=== PATIENT | female | born 1970 | race Caucasian/White ===

== ENCOUNTER 2016-08-01 18:37 | Emergency (ER) | payer OTHER ==
[2016-08-01 19:04] VITALS: BP 139/81
== END 2016-08-01 20:12 | disposition left against medical advice (07) ==
LOC: ED 18:37
DX: M54.5 Low back pain (principal); Z53.21 Procedure and treatment not carried out due to patient leaving prior to being seen by health care provider

== ENCOUNTER 2016-08-01 20:42 | Emergency (ER) | payer OTHER ==
[2016-08-01 20:55] VITALS: BP 108/74
[2016-08-01] MEDS ORDERED: Ketorolac INJ* 30 MG/ML 1 ML VIAL IM ONE (21:24)
[2016-08-01] MEDS ORDERED: Cyclobenzaprine TAB* 10 MG PO ONE (21:24)
--- NOTE | 2016-08-01 21:35 | UC ---
Back Pain HPI - HPI Summary HPI Summary: L lower back pain starting 1-2 weeks ago. Denies any recent trauma or twisting injury. Feels like when she fell off of chair about a week ago. Sees Dr. Lora' s office for chronic shoulder pain. No trouble with bowel or bladder, no fever, no weight loss. - History of Current Complaint Chief Complaint: UCBackPain Stated Complaint: BACK INJURY Hx Obtained From: Patient Hx Last Menstrual Period: 07/18/16 ?: No Onset/Duration: Gradual Onset, Lasting Weeks Timing: Constant Severity Initially: Mild Severity Currently: Moderate Back Pain: Is Discrete @ Aggravating: Movement, Bending, Walking Associated Signs And Symptoms: Negative: Redness, Bruising, Fever, Bladder Incontinence, Bowel Incontinence, Weight Loss - Allergies/Home Medications Allergies/Adverse Reactions: Allergies Allergy/AdvReac Type Severity Reaction Status Date / Time Amoxicillin AdvReac Intermediate Rash Verified 01/17/16 11:26 Home Medications: Home Medications Acetaminophen TAB* [Tylenol TAB*] 2 tab 08/01/16 [History] QUEtiapine TAB* [Seroquel TAB*] 2 tab PO BEDTIME 08/01/16 [History Confirmed ] PMH/Surg Hx/FS Hx/Imm Hx Endocrine History Of: Denies: Diabetes, Thyroid Disease Cardiovascular History Of: Reports: Hypertension Denies: Cardiac Disorders, Pacemaker/ICD Respiratory History Of: Reports: Asthma - PRN INHALER Denies: COPD GI/ History Of: Denies: Gastroesophageal Reflux, Ulcer, Renal Disease Neurological History Of: Reports: Migraine - HISTORY OF Denies: CVA, Dementia, Seizures Psychological History Of: Reports: Anxiety, Depression Other History Of: Negative For: Anticoagulant Therapy - Surgical History Surgical History: Yes Surgery Procedure, Year, and Place: LT ANKLE ARTHROSCOPY 01/2013. Lt KNEE ARTHROSCOPIC 2008. TUBAL LIGATION 2000. I & D ABD AREA DUE TO INFECTION RELATED TO CAT-SCRATCH FEVER AGE 6. Rt WRIST - TENDONITIS - Family History Known Family History: Positive: Hypertension, Diabetes, Other - cancer - colon; parkinsons - Social History Lives: With Family Alcohol Use: None Substance Use Type: None Smoking Status (MU): Heavy Every Day Tobacco Smoker Amount Used/How Often: 1-10 CIG/DAY When Did the Patient Quit Smoking/Using Tobacco: 1/2 PACK PER DAY Household Exposure Type: Cigarettes Review of Systems Constitutional: Negative Skin: Negative Eyes: Negative ENT: Negative Respiratory: Negative Cardiovascular: Negative Gastrointestinal: Negative Genitourinary: Negative Motor: Negative Neurovascular: Negative Musculoskeletal: Arthralgia Neurological: Negative Psychological: Negative All Other Systems Reviewed And Are Negative: Yes Physical Exam Triage Information Reviewed: Yes Appearance: Well-Appearing, No Pain Distress, Obese Vital Signs: Initial Vital Signs Temp 97.4 F 08/01/16 20:49 Pulse 75 08/01/16 20:49 Resp 18 08/01/16 20:49 BP 108/74 08/01/16 20:49 Pulse Ox 95 08/01/16 20:49 Vital Signs Reviewed: Yes Eye Exam: Normal Eyes: Positive: Conjunctiva Clear ENT Exam: Normal ENT: Positive: Normal ENT inspection, Hearing grossly normal, Pharynx normal, TMs normal Dental Exam: Normal Neck exam: Normal Neck: Positive: Supple, Nontender, No Lymphadenopathy Respiratory Exam: Normal Respiratory: Positive: Chest non-tender, Lungs clear, Normal breath sounds, No respiratory distress, No accessory muscle use Cardiovascular Exam: Normal Cardiovascular: Positive: RRR, No Murmur Musculoskeletal Exam: Other - theatric pain with light touch Musculoskeletal: Positive: Strength Intact, ROM Intact Neurological Exam: Normal, Other - DTRs 2+ BLE Psychological Exam: Normal Skin Exam: Normal Back Pain Course/Dx - Differential Dx/Diagnosis Provider Diagnoses: Low back strain Discharge - Discharge Plan Condition: Stable Disposition: HOME Prescriptions: Cyclobenzaprine TAB* [Flexeril TAB*] 10 mg PO TID PRN #15 tab PRN Reason: Pain Ketorolac TAB (NF) [Toradol TAB (NF)] 10 mg PO Q8HR PRN #15 tab PRN Reason: pain Patient Education Materials: Low Back Strain (ED) Referrals: Teodoro Blair MD [Primary Care Provider] - 1 Week Additional Instructions: Stay active and rest on a firm surface when needed. I recommend using a pillow between the knees or under your legs when you sleep. Apply warm moist compresses and do gentle [id number] exercises.
== END 2016-08-01 21:43 | disposition home or self-care (01) ==
LOC: UCEAST 20:42
DX: S39.012A Strain of muscle, fascia and tendon of lower back, initial encounter (principal); X58.XXXA Exposure to other specified factors, initial encounter; Y93.9 Activity, unspecified; Y92.9 Unspecified place or not applicable; Z88.0 Allergy status to penicillin; F17.210 Nicotine dependence, cigarettes, uncomplicated
CPT/HCPCS: 96372; 99212; A9270-GY; G0463; J1885

== ENCOUNTER → 2017-03-01 16:21 | Emergency (ER) | payer OTHER ==
[~2017-03-01 16:21] MED LIST: Ibuprofen TAB* 600 MG PO ONE
--- NOTE | 2017-03-01 18:54 | RAD ---
HISTORY: Lump on left wrist, pain COMPARISONS: October 06, 2014 VIEWS: 2, Frontal and lateral views of the left wrist FINDINGS: BONE DENSITY: Normal. BONES: There is no displaced fracture. JOINTS: There is no arthropathy. ALIGNMENT: There is no dislocation. SOFT TISSUES: Unremarkable. OTHER FINDINGS: There is no radiographic abnormality to correspond to the history of palpable abnormality. IMPRESSION: NO ACUTE OSSEOUS INJURY. IF SYMPTOMS PERSIST, RECOMMEND REPEAT IMAGING. A NEGATIVE REPORT SHOULD NOT PRECLUDE OR DELAY THE EVALUATION OF A CLINICALLY SUSPICIOUS PALPABLE ABNORMALITY
[2017-03-01 19:30] VITALS: BP 126/79
--- NOTE | 2017-03-02 08:13 | ED ---
Upper Extremity Pain - HPI Summary HPI Summary: Patient presents to the ED with CC of left bump on the radial side of the wrist x 2 days. She states she may have "felt something" there for several weeks, but it quickly grew into a bump which is painful, able to be pressed down and pain is worse with movement of the wrist. She states she has been taking over the counter medications without relief. Denies numbness, tingling, temperature or color changes to the area. She denies trauma or injury. Has never had this problem before. - History of Current Complaint Chief Complaint: EDExtremityUpper Stated Complaint: BUMP ON LT WRIST Time Seen by Provider: 03/01/17 16:45 Hx Obtained From: Patient Hx Last Menstrual Period: 07/18/16 Onset/Duration: Started Days Ago Timing: Constant Severity Initially: Moderate Severity Currently: Moderate Pain Location: Wrist Character: Aching Aggravating Factor(s): Movement, Flexion Alleviating Factor(s): Rest, Ice, OTC Meds Associated Signs & Symptoms: Positive: Swelling - Risk Factors Non-Orthopedic Risk Factor: Negative DVT Risk Factors: Negative Compartment Syndrome Risk Factors: Pain - Allergies/Home Medications Allergies/Adverse Reactions: Allergies Allergy/AdvReac Type Severity Reaction Status Date / Time Amoxicillin AdvReac Intermediate Rash Verified 03/01/17 16:31 PMH/Surg Hx/FS Hx/Imm Hx Previously Healthy: Yes Endocrine/Hematology History: Denies: Hx Anticoagulant Therapy, Hx Diabetes, Hx Thyroid Disease Cardiovascular History: Reports: Hx Hypertension, Other Cardiovascular Problems/ Disorders - HIGH CHOLESTEROL Denies: Hx Pacemaker/ICD Respiratory History: Reports: Hx Asthma - PRN INHALER, Hx Sleep Apnea - IN PROCESS OF HAVING A STUDY DONE Denies: Hx Chronic Obstructive Pulmonary Disease (COPD) GI History: Denies: Hx Ulcer History: Denies: Hx Renal Disease Musculoskeletal History: Reports: Hx Arthritis - LEFT ANKLE, Hx Tendonitis - LEFT ANKLE Sensory History: Reports: Hx Contacts or Glasses - GLASSES Denies: Hx Hearing Aid Opthamlomology History: Reports: Hx Contacts or Glasses - GLASSES Neurological History: Reports: Hx Migraine - HISTORY OF, Other Neuro Impairments /Disorders - BIPOLAR Denies: Hx Dementia, Hx Seizures Psychiatric History: Reports: Hx Anxiety, Hx Depression, Hx Panic Disorder - ANXIETY/DEPRESSION/BI POLAR Denies: Hx Eating Disorder, Hx of Violent Episodes Against Others, Hx Substance Abuse - Surgical History Surgery Procedure, Year, and Place: LT ANKLE ARTHROSCOPY 01/2013. Lt KNEE ARTHROSCOPIC 2008. TUBAL LIGATION 2000. I & D ABD AREA DUE TO INFECTION RELATED TO CAT-SCRATCH FEVER AGE 6. Rt WRIST - TENDONITIS Hx Anesthesia Reactions: No - Immunization History Hx Pertussis Vaccination: No Immunizations Up to Date: Unable to Obtain/Confirm Infectious Disease History: No Infectious Disease History: Denies: Hx Clostridium Difficile, Hx Hepatitis, Hx Human Immunodeficiency Virus (HIV), Hx of Known/Suspected MRSA, Hx Shingles, Hx Tuberculosis, Traveled Outside the [place] in Last 30 Days - Family History Known Family History: Positive: Hypertension, Diabetes, Other - cancer - colon; parkinsons - Social History Occupation: Unemployed Lives: With Family Alcohol Use: None Hx Substance Use: No Substance Use Type: Reports: None Hx Tobacco Use: Yes Smoking Status (MU): Heavy Every Day Tobacco Smoker Amount Used/How Often: 1-10 CIG/DAY Review of Systems Constitutional: Negative Eyes: Negative Cardiovascular: Negative Respiratory: Negative Positive: no symptoms reported, see HPI Positive: Arthralgia - left wrist pain Skin: Negative Neurological: Negative All Other Systems Reviewed And Are Negative: Yes Physical Exam Triage Information Reviewed: Yes Vital Signs On Initial Exam: Initial Vitals Temp Pulse Resp BP Pulse Ox 97.5 F 77 20 139/89 98 03/01/17 16:23 03/01/17 16:23 03/01/17 16:23 03/01/17 16:23 03/01/17 16:23 Vital Signs Reviewed: Yes Appearance: Positive: Well-Appearing, Well-Nourished Skin: Positive: Warm, Skin Color Reflects Adequate Perfusion Head/Face: Positive: Normal Head/Face Inspection Eyes: Positive: EOMI, HO, Conjunctiva Clear Neck: Positive: Nontender, No Lymphadenopathy Respiratory/Lung Sounds: Positive: Clear to Auscultation, Breath Sounds Present Cardiovascular: Positive: Normal, RRR, Pulses are Symmetrical in both Upper and Lower Extremities Musculoskeletal: Positive: Strength/ROM Intact, Pain @ - left wrist pain with palpable nodule Neurological: Positive: Speech Normal Psychiatric: Positive: Normal Diagnostics - Vital Signs Vital Signs Temp Pulse Resp BP Pulse Ox 03/01/17 19:28 98.3 F 78 16 126/79 03/01/17 16:28 97.5 F 77 16 139/89 98 03/01/17 16:23 97.5 F 77 20 139/89 98 - Laboratory Lab Statement: Any lab studies that have been ordered have been reviewed, and results considered in the medical decision making process. Course/Dx - Course Course Of Treatment: Left wrist pain with palpable nodule on radial side at the location of the radial styloid process. Nodule is semi-fluctuant and painful to palpation. No color or temperatute changes. Slight swelling in the thenar eminence without numbness, tingling. Pulses +2 bilaterally and cap refill < 2 sec. No evidence of circulation problems. Discussed treatment options. Sent to xray for possible fracture or avulsion. Xray WNL with no acute changes found. Discussed possible ganglion cyst which has recently worsened and may need further evaluation by ortho. Encouraged ibuprofen and provider sachin wrapped the area for the patients comfort. She is OK for discharge and to follow up. - Diagnoses Differential Diagnosis/HQI/PQRI: Positive: Bursitis, Contusion, Strain Provider Diagnoses: Ganglion cyst Discharge - Discharge Plan Condition: Stable Disposition: HOME Patient Education Materials: Ganglion Cysts (ED) Referrals: Natasha Rahman MD [Medical Doctor] - Teodoro Blair MD [Primary Care Provider] - Additional Instructions: Ibuprofen 600mg three times daily Follow up with your PCP Follow up with ortho if symptoms persist
== END | disposition home or self-care (01) ==
LOC: ED 16:21
DX: M67.432 Ganglion, left wrist (principal); I10 Essential (primary) hypertension; E78.00 Pure hypercholesterolemia, unspecified; J45.909 Unspecified asthma, uncomplicated; G43.909 Migraine, unspecified, not intractable, without status migrainosus; F41.9 Anxiety disorder, unspecified; F32.9 Major depressive disorder, single episode, unspecified; Z88.1 Allergy status to other antibiotic agents; F17.210 Nicotine dependence, cigarettes, uncomplicated
CPT/HCPCS: 99282; A9270-GY

== ENCOUNTER 2017-03-20 06:42 | Day surgery (SDC) | payer OTHER ==
--- NOTE | 2017-03-19 09:26 | HP ---
PREOPERATIVE HISTORY AND PHYSICAL: DATE OF SURGERY/ADMISSION: 03/20/17 [facility] DATE OF OFFICE VISIT/ENCOUNTER: 03/07/17 ATTENDING SURGEON: Denise Shelton MD * (DICTATED BY SHERRY ROSE) PROCEDURE: Excision of mass, left wrist. CHIEF COMPLAINT: Mass, left wrist. HISTORY OF PRESENT ILLNESS: This is a 46-year-old female, who complains of a lump in her left wrist on the volar aspect that has been present for approximately 3 weeks. She rates her pain as 5/10. She denies any injury to this wrist. She was seen at the [facility] Emergency Room, had an x- ray, and was referred to Dr. Shelton for further evaluation. X-rays were negative for any bony abnormality. The patient would like to have the cyst removed because she says it is very painful. She denies any associated numbness or tingling. PAST MEDICAL HISTORY: 1. Anxiety/depression. 2. Asthma. 3. Hypertension. 4. Acid reflux. 5. Hypercholesterolemia. 6. Migraine headaches. PAST SURGICAL HISTORY: 1. Right wrist de Quervain's release. 2. Left ankle surgery. 3. Left knee surgery. CURRENT MEDICATIONS: 1. Buspirone HCl 10 mg twice daily. 2. Fluoxetine HCl 20 mg daily. 3. Fluticasone propionate 50 mcg/act 2 sprays every day. 4. Indomethacin 25 mg 2 to 3 times a day p.r.n. headache. 5. Ipratropium bromide 0.06% spray, 2 sprays twice a day nasally. 6. Lisinopril 20 mg daily. 7. Loratadine 10 mg daily. 8. Omeprazole 20 mg daily. 9. Quetiapine fumarate. 10. Simvastatin 10 mg daily. 11. Tramadol HCl 50 mg 2 times daily p.r.n. 12. Ventolin HFA inhaler p.r.n. 13. Xanax 0.25 mg as directed. ALLERGIES: AMOXICILLIN causes hives. FAMILY HISTORY: Diabetes and Parkinson's. SOCIAL HISTORY: The patient is not employed. She is a smoker, approximately a pack per day and has smoked since age 16. She denies recreational drug use and alcohol u6se. REVIEW OF SYSTEMS: General: Negative for fevers, chills, or night sweats. No known anesthesia problems. HEENT: Negative for headache, lightheadedness, or syncopal episodes. Integumentary: Negative for abrasions, lesions, or open wounds. Cardiothoracic: Positive for hypertension. Negative for chest pain, palpitations, or edema. Pulmonary: Positive for shortness of breath related to asthma. Negative for chronic cough or COPD. GI: Positive for GERD. Negative for nausea, vomiting, diarrhea, or constipation. : Negative for nocturia, urinary frequency, urgency, history of UTIs, or kidney problems. Musculoskeletal: Positive current complaint. Negative for chronic or intermittent back pain or history of fractures. Neurological: Negative for paresthesia, numbness, history of seizure, stroke, or epilepsy. Positive for anxiety/depression. Endocrine: Negative for diabetes or thyroid issues. Hematologic: Negative for easy bruising, anemia, excessive bleeding, or history of DVT. Infectious Disease: Negative for history of MRSA, hepatitis C , or HIV. PHYSICAL EXAMINATION GENERAL: Well-developed, well-nourished 46-year-old female, in no acute distress. She is alert and oriented x3. VITAL SIGNS: Height 5 feet 7 inches, weight 240 pounds. Pulse rate 84, blood pressure 120/82. HEENT: Normocephalic, atraumatic. Pupils are equal, round, and reactive to light and accommodation. Extraocular movements are intact. Throat is clear. NECK: Supple. No palpable lymph nodes. PULMONARY: Lungs are clear to auscultation bilaterally. No wheezes, rales, or rhonchi. CARDIOVASCULAR: Regular rate and rhythm. S1, S2. No murmurs, rubs, or gallops. No edema. ABDOMEN: Positive bowel sounds, soft, nontender. NEUROLOGICAL: Alert and oriented x3. Cranial nerves II through XII are intact. Sensation is intact to light touch. MUSCULOSKELETAL: On exam of her left wrist, she has a small cystic mass at the volar-radial aspect of the wrist, it is nonpulsatile. She has good range of motion of her wrist, but has pain with full flexion and extension. She can make a full fist. Skin is intact. Neurovascular function is intact. IMPRESSION: Left volar wrist ganglion. PLAN: The patient is scheduled to undergo excision of mass, left wrist with Dr. Shelton on 03/20/17. She will return to the office 10 to 14 days postop for followup and suture removal. A prescription for Tylenol #3 was e-scribed to the patient's pharmacy for postoperative pain management. SHERRY ROSE [id number]/CPS #: [id number] MTDD
[~2017-03-20 06:42] MED LIST changes: +Buffered Lidocaine 0.9% SYRIN* 5 ML/SYR SYRINGE INTRADERM ONE; -Ibuprofen TAB* 600 MG PO ONE
[2017-03-20] MEDS ORDERED: Midazolam* 1 MG/ML 2 ML VIAL (2 MG) ONE (08:15)
[2017-03-20] MEDS ORDERED: fentaNYL* 50 MCG/ML 2 ML VIAL (100 MCG VIAL) ONE (08:15)
[2017-03-20] MEDS ORDERED: DiMENhydriNATE IV* 50 MG/ML VIAL ONE (08:15)
[2017-03-20 10:16] VITALS: BP 112/63
--- NOTE | 2017-03-20 16:43 | OP ---
DATE OF OPERATION: 03/20/17 [facility] DATE OF : 72 SURGEON: Denise Shelton MD [employer] SUPERVISOR: SHERRY Washington ANESTHESIA: Local MAC. PRE-OP DIAGNOSIS: Left wrist mass. POST-OP DIAGNOSIS: Left wrist mass. OPERATIVE PROCEDURE: Removal of left wrist mass. ESTIMATED BLOOD LOSS: Zero. TOURNIQUET TIME: About 15 minutes. INDICATION FOR PROCEDURE: Norma is a 46-year-old female with a painful mass on the volar radial aspect of her left wrist. She presents for removal. DESCRIPTION OF PROCEDURE: The patient was brought to the operating room, was given a sedation anesthetic and a local infiltration of 10 cc of 1% plain lidocaine on the volar radial aspect of her left wrist. The skin of her left hand and forearm was prepped and draped in usual sterile fashion. The hand and forearm were exsanguinated and the tourniquet elevated to 250 mmHg. A Chevron incision was made centered over the mass and we dissected bluntly through the subcutaneous tissue. Branches of the radial artery and the FCR tendon were retracted by the certified ophthalmic surgical assistant, Nereyda Rick. The mass, which appeared to be a ganglion cyst was carefully dissected down with its stalk to the radiocarpal joint, was removed with a small portion of the radiocarpal joint and sent for pathology. The wound was irrigated and the edges of the capsule were cauterized with the Bovie. The wound was irrigated and the skin edges reapproximated with 4-0 nylon suture. The wound was dressed with Xeroform, 4x4, Webril and an Greyson wrap. The patient tolerated the procedure well and was brought to the recovery room in good condition. [id number]/[facility] #: [id number] [facility]
== END 2017-03-20 10:03 | disposition home or self-care (01) ==
LOC: OREAST 06:42
PROVIDERS: ATTEND Orthopaedic Surgery
DX: M67.432 Ganglion, left wrist (principal); F41.9 Anxiety disorder, unspecified; F31.9 Bipolar disorder, unspecified; J45.909 Unspecified asthma, uncomplicated; I10 Essential (primary) hypertension; K21.9 Gastro-esophageal reflux disease without esophagitis; E78.00 Pure hypercholesterolemia, unspecified; F17.210 Nicotine dependence, cigarettes, uncomplicated; Z88.1 Allergy status to other antibiotic agents
CPT/HCPCS: 81025; 88304; J1240; J2250; J3010

== ENCOUNTER 2017-08-14 06:42 | Day surgery (SDC) | payer OTHER ==
--- NOTE | 2017-08-06 11:42 | HP ---
PREOPERATIVE HISTORY AND PHYSICAL: DATE OF SURGERY/ADMISSION: 08/14/17 [facility] DATE OF OFFICE VISIT/ENCOUNTER: 08/02/17 ATTENDING SURGEON: Denise Shelton MD * (DICTATED BY SHERRY ROSE) PROCEDURE: Left wrist de Quervain's release. CHIEF COMPLAINT: Left wrist pain. HISTORY OF PRESENT ILLNESS: This is a 47-year-old female who has had persistent pain on the radial aspect of her left wrist for several months. She has failed conservative treatment including cortisone injection, physical therapy and splinting. She is interested in proceeding with a more definitive solution to this problem and has consented to proceed with a left wrist de Quervain's release. PAST MEDICAL HISTORY: 1. Anxiety/depression. 2. Bipolar disorder. 3. Hypertension. 4. Asthma. 5. Migraines. PAST SURGICAL HISTORY: 1. Left wrist ganglion cyst excision. 2. Left foot/ankle surgery. 3. Right wrist arthroscopy. 4. Right knee arthroscopy. CURRENT MEDICATIONS: 1. All Day Allergy 10 mg daily. 2. Albuterol sulfate one treatment every four days as needed. 3. Bupropion HCL ER XL 115 mg daily. 4. Clonazepam 0.5 mg daily. 5. Dulera 200/5 mcg/act two puffs twice a day. 6. Fluticasone propionate 50 mcg/act two sprays daily. 7. Ibuprofen 600 mg t.i.d. 8. Ipratropium bromide 0.06% spray, two sprays twice daily. 9. Lisinopril 20 mg daily. 10. Loratadine 10 mg daily. 11. Melatonin ER 10 mg daily. 12. Metoprolol tartrate 25 mg twice a day. 13. Mucinex 600 mg one tab twice a day p.r.n. 14. Omeprazole 20 mg daily. 15. Quetiapine fumarate 50 mg daily. 16. Sertraline HCl 100 mg one and a half tabs daily. 17. Simvastatin 10 mg daily. 18. Sumatriptan succinate 100 mg p.r.n. 19. Tramadol 50 mg t.i.d. 20. Ventolin HFA 108 (90 base) mcg/act q.4-6h. p.r.n. ALLERGIES: AMOXICILLIN causes hives. FAMILY HISTORY: Heart disease, diabetes, and cancer. SOCIAL HISTORY: The patient is unemployed. She is a smoker. She smokes approximately a half a pack a day and has done so since age 10. She denies recreational drug use and does not drink alcohol. REVIEW OF SYSTEMS: Negative for fevers, chills, or night sweats. No known anesthesia problems. HEENT: Positive for occasional migraine headache. Negative for light-headedness or syncopal episodes. Integumentary: Negative for abrasions, lesions or open wounds. Cardiothoracic: Positive for hypertension. Negative for chest pain, palpitations or edema. Pulmonary: Positive for shortness of breath with exertion secondary to asthma. Negative for chronic cough, COPD. GI: Negative for nausea, vomiting, or diarrhea. Positive for GERD. : Negative for nocturia, urinary frequency, urgency, history of UTI's or kidney problems. Musculoskeletal: Positive for current complaint. Neurological: Positive for anxiety/depression and bipolar disorder. Negative for a history of seizure, stroke or epilepsy. Endocrine: Negative for diabetes or thyroid issues. Hematologic: Negative for easy bruising, anemia, excessive bleeding or history of DVT. Infectious disease: Negative for a history of MRSA, hepatitis C, or HIV. PHYSICAL EXAMINATION GENERAL: Well-developed, well-nourished 47-year-old female, in no acute distress. VITAL SIGNS: Height 5 feet 7 inches, weight 253 pounds, blood pressure 102/64, pulse rate 79. HEENT: Normocephalic, atraumatic. Pupils are equal, round, and reactive to light and accommodation. Extraocular movements are intact. Throat is clear. NECK: Supple. No palpable lymph nodes. PULMONARY: Lungs are clear to auscultation bilaterally. No wheezes, rales or rhonchi. CARDIOVASCULAR: Regular rate and rhythm. S1, S2. No murmurs, rubs or gallops. No edema. ABDOMEN: Positive bowel sounds, soft, nontender. NEUROLOGICAL: Alert and oriented x3. Cranial nerves II through XII are intact. Sensation is intact to light touch. MUSCULOSKELETAL: On exam of her left wrist, there is no visible swelling. Skin is intact. There is marked tenderness over the first dorsal compartment. Positive Dina's test and increased pain with wrist range of motion, both flexion, extension and deviation. IMPRESSION: Left wrist de Quervain's tenosynovitis. PLAN: The patient is scheduled to undergo a left wrist de Quervain's release. She will return to the office 10 days postop for followup and suture removal. A prescription for pain medication will be sent to the patient's pharmacy the day of surgery. SHERRY ROSE [id number]/[facility] #: [id number] GAVINO
[~2017-08-14 06:42] MED LIST changes: +Dexamethasone IV* 4 MG/ML 1 ML (4 MG) IV SLOW PU ONE; +Famotidine IV* 10 MG/ML 2 ML (20 mg) IV ONE
[2017-08-14] MEDS ORDERED: Dexamethasone IV* 4 MG/ML 1 ML (4 MG) ONE (06:48)
[2017-08-14] MEDS ORDERED: Famotidine IV* 10 MG/ML 2 ML (20 mg) ONE (06:48)
[2017-08-14] MEDS ORDERED: Lidocaine 1% INJ* 10 MG/ML 30 ML SDV ONE (07:08)
[2017-08-14] MEDS ORDERED: fentaNYL* 50 MCG/ML 2 ML VIAL (100 MCG VIAL) ONE (07:28)
[2017-08-14] MEDS ORDERED: Midazolam* 1 MG/ML 2 ML VIAL (2 MG) ONE (07:28)
[2017-08-14] MEDS ORDERED: Ondansetron INJ* 2 MG/ML VIAL ONE (07:30)
[2017-08-14] MEDS ORDERED: Ketorolac INJ* 30 MG/ML 1 ML VIAL ONE (07:30)
[2017-08-14] MEDS ORDERED: Propofol* 10 MG/ML 20 ML BTL IV PUSH ONE (07:30)
[2017-08-14] MEDS ORDERED: Naloxone* 0.4 MG/ML 1 ML VIAL IV PRN (08:11)
[2017-08-14 08:16] VITALS: BP 113/71
--- NOTE | 2017-08-14 21:19 | OP ---
DATE OF OPERATION: 08/14/17 [facility] DATE OF : 72 SURGEON: Denise Shelton MD TECHNICIAN [employer] CLEANING: SHERRY Washington ANESTHESIA: Local MAC. PRE-OP DIAGNOSIS: De Quervain's tenosynovitis on the left. POST-OP DIAGNOSIS: De Quervain's tenosynovitis on the left. OPERATIVE PROCEDURE: Left de Quervain's release. ESTIMATED BLOOD LOSS: Zero. TOURNIQUET TIME: Approximately 8 minutes. INDICATIONS FOR PROCEDURE: Norma is a 47-year-old female with pain at the radial aspect of her left wrist. She had some improvement with the cortisone injection, but now her symptoms have returned. She has positive Dina test. She presents for left de Quervain's release. DESCRIPTION OF PROCEDURE: The patient was brought to the operating room, was given a sedation anesthetic and a local infiltration of 10 cc of 1% plain lidocaine at the radial aspect of her left wrist. The skin of her left upper extremity was prepped and draped in usual sterile fashion. The hand and forearm was exsanguinated and the tourniquet elevated to 250 mmHg. A longitudinal incision was made centered at the tip of the radial styloid. We dissected through the subcutaneous tissue. Branches of the radial sensory nerves were located and then were retracted by the retail event assistant, Nereyda Rick. The first dorsal compartment was incised longitudinally completely releasing the APL and EPB tendons, which were in good condition with some mild tenosynovitis. The tenosynovitis was debrided. The wound was irrigated and the skin edges reapproximated with 4-0 nylon suture. The wound was dressed with Xeroform, 4x4, Webril and an Greyson wrap. The patient tolerated the procedure well and was brought to the recovery room in good condition. [id number]/[facility] [facility] [place] #: [id number] [facility]
== END 2017-08-14 08:25 | disposition home or self-care (01) ==
LOC: OREAST 06:42
PROVIDERS: ATTEND Orthopaedic Surgery
DX: M65.4 Radial styloid tenosynovitis [de Quervain] (principal); F41.8 Other specified anxiety disorders; F31.9 Bipolar disorder, unspecified; I10 Essential (primary) hypertension; J45.909 Unspecified asthma, uncomplicated; G43.909 Migraine, unspecified, not intractable, without status migrainosus; F17.210 Nicotine dependence, cigarettes, uncomplicated
CPT/HCPCS: J1100; J1885; J2250; J2405; J2704; J3010

== ENCOUNTER 2017-09-25 03:17 | Emergency (ER) | payer OTHER ==
[2017-09-25] MEDS ORDERED: NS 0.9% 1000 ML* 1,000 ML IV ONE (03:43)
[2017-09-25] MEDS ORDERED: Ketorolac INJ* 30 MG/ML 1 ML VIAL IV PUSH ONE (03:43)
[2017-09-25] MEDS ORDERED: methylPREDNISolone 125 MG* 2 ML VIAL IV ONE (03:43)
[2017-09-25] MEDS ORDERED: Acetaminophen TAB* 325 MG PO ONE (03:43)
[2017-09-25] MEDS ORDERED: Albuterol/Ipratropium NEB.SOL* Albuterol 2.5 MG/Ipratropium 0.5 MG 3 ML INH ONE (03:43)
[2017-09-25 04:17] LABS: ABS Basophils 0.1 10^3/ul (0-0.2); ABS Eosinophils 0.3 10^3/ul (0-0.6); ABS Lymphocytes 3.5 10^3/ul (1.0-4.8); ABS Monocytes 0.8 10^3/ul (0-0.8); ABS Neutrophils 6.1 10^3/ul (1.5-7.7); ABS Nucleated RBC 0 10^3/ul; Eosinophil % 2.6 % (0-6); Hematocrit 43 % (35-47); Hemoglobin 15.1 g/dl (12.0-16.0); Lymphocyte % 32.7 % (25-47); Mean Corpuscular HGB Conc 35 g/dl (31-36); Mean Corpuscular Hemoglobin 32 pg (27-31); Mean Corpuscular Volume 92 fL (80-97); Mean Platelet Volume 7 um3 (7.4-10.4); Nucleated Red Blood Cells % 0.1; Platelet Count 288 10^3/ul (150-450); Red Blood Count 4.69 10^6/ul (4.0-5.4); Red Cell Distribution Width 15 % (10.5-15); White Blood Count 10.7 10^3/ul (3.5-10.8)
[2017-09-25 04:30] LABS: EGFR Non-African American 90.1 (>60)
--- NOTE | 2017-09-25 05:10 | ED ---
Johnson Britt Thomas, scribed for Karan Conteh MD on 09/25/17 at 0420 . Influenza-Like Illness - HPI Summary HPI Summary: The patient is a 47 year old female complaining of a cough, fatigue, headache, sore throat, and myalgia for the last 3-4 days. She took her nebulizer treatment earlier today. Past medical history includes asthma. - History of Current Complaint Chief Complaint: EDFluSymptoms Hx Obtained From: Patient Onset/Duration: Lasting Days - 4, Still Present Severity: Moderate Associated Signs & Symptoms: Myalgia, Cough, Sore Throat, Headache Related Hx: Smoking - Allergy/Home Medications Allergies/Adverse Reactions: Allergies Allergy/AdvReac Type Severity Reaction Status Date / Time amoxicillin Allergy Rash Verified 09/25/17 03:20 PMH/Surg Hx/FS Hx/Imm Hx Endocrine/Hematology History: Denies: Hx Anticoagulant Therapy, Hx Diabetes, Hx Thyroid Disease Cardiovascular History: Reports: Hx Hypertension - ON MEDICATION, Other Cardiovascular Problems/Disorders - HIGH CHOLESTEROL Denies: Hx Pacemaker/ICD Respiratory History: Reports: Hx Asthma - PRN INHALER, Hx Sleep Apnea Denies: Hx Chronic Obstructive Pulmonary Disease (COPD), Other Respiratory Problems/Disorders GI History: Denies: Hx Ulcer, Other GI Disorders History: Denies: Hx Renal Disease, Other Problems/Disorders Musculoskeletal History: Reports: Hx Arthritis - LEFT ANKLE, Hx Tendonitis - LEFT WRIST, LEFT ANKLE Denies: Other Musculoskeletal History Sensory History: Reports: Hx Contacts or Glasses - GLASSES Denies: Hx Hearing Aid Opthamlomology History: Reports: Hx Contacts or Glasses - GLASSES Neurological History: Reports: Hx Migraine - HISTORY OF, Other Neuro Impairments /Disorders - BIPOLAR Denies: Hx Dementia, Hx Seizures Psychiatric History: Reports: Hx Anxiety, Hx Depression, Hx Panic Disorder - ANXIETY/DEPRESSION/BI POLAR Denies: Hx Eating Disorder, Hx of Violent Episodes Against Others, Hx Substance Abuse - Surgical History Surgery Procedure, Year, and Place: LEFT WRIST CYST REMOVAL 2014. LEFT ANKLE ARTHROSCOPY 01/2013. LEFT KNEE ARTHROSCOPIC 2008. TUBAL LIGATION 2000. I & D ABD AREA DUE TO INFECTION RELATED TO CAT-SCRATCH FEVER AGE 6. RIGHT WRIST - TENDONITIS Hx Anesthesia Reactions: No Infectious Disease History: No Infectious Disease History: Denies: Hx Clostridium Difficile, Hx Hepatitis, Hx Human Immunodeficiency Virus (HIV), Hx of Known/Suspected MRSA, Hx Shingles, Hx Tuberculosis, Traveled Outside the [place] in Last 30 Days - Family History Known Family History: Positive: Hypertension, Diabetes, Other - cancer - colon; parkinsons - Social History Alcohol Use: None Hx Substance Use: No Substance Use Type: Reports: None Hx Tobacco Use: Yes Smoking Status (MU): Heavy Every Day Tobacco Smoker Amount Used/How Often: 1-10 CIG/DAY Length of Time of Smoking/Using Tobacco: 33 YEARS- SINCE AGE 10 Have You Smoked in the Last Year: Yes Review of Systems Positive: Fatigue. Negative: Fever Positive: Sore Throat Positive: Cough Positive: Myalgia Positive: Headache All Other Systems Reviewed And Are Negative: Yes Physical Exam - Summary Physical Exam Summary: VITAL SIGNS: Reviewed. GENERAL: Patient is a well-developed and nourished female who is lying comfortable in the stretcher. Patient is not in any acute respiratory distress. HEAD AND FACE: No signs of trauma. No ecchymosis, hematomas or skull depressions. No sinus tenderness. EYES: PERRLA, EOMI x 2, No injected conjunctiva, no nystagmus. EARS: Hearing grossly intact. Ear canals and tympanic membranes are within normal limits. MOUTH: Pharyngeal erythema without exudate. NECK: Supple, trachea is midline, no adenopathy, no JVD, no carotid bruit, no c- spine tenderness, neck with full ROM. CHEST: Symmetric, no tenderness at palpation LUNGS: Decreased breath sounds bilaterally. CVS: Regular rate and rhythm, S1 and S2 present, no murmurs or gallops appreciated. ABDOMEN: Soft, non-tender. No signs of distention. No rebound no guarding, and no masses palpated. Bowel sounds are normal. EXTREMITIES: FROM in all major joints, no edema, no cyanosis or clubbing. NEURO: Alert and oriented x 3. No acute neurological deficits. Speech is normal and follows commands. SKIN: Dry and warm Triage Information Reviewed: Yes Vital Signs On Initial Exam: Initial Vitals Temp Pulse Resp BP Pulse Ox 97.3 F 73 18 121/68 97 09/25/17 03:18 09/25/17 03:18 09/25/17 03:18 09/25/17 03:18 09/25/17 03:18 Vital Signs Reviewed: Yes Diagnostics - Vital Signs Vital Signs Temp Pulse Resp BP Pulse Ox 09/25/17 04:05 65 100 09/25/17 03:18 97.3 F 73 18 121/68 97 - Laboratory Lab Results: Lab Results 09/25/17 Range/Units 04:03 WBC 10.7 (3.5-10.8) 10^3/ul RBC 4.69 (4.0-5.4) 10^6/ul Hgb 15.1 (12.0-16.0) g/dl Hct 43 (35-47) % MCV 92 (80-97) fL MCH 32 H (27-31) pg MCHC 35 (31-36) g/dl RDW 15 (10.5-15) % Plt Count 288 (150-450) 10^3/ul MPV 7 L (7.4-10.4) um3 Neut % (Auto) 56.5 (38-83) % Lymph % (Auto) 32.7 (25-47) % [place] % (Auto) 7.6 H (0-7) % Eos % (Auto) 2.6 (0-6) % Baso % (Auto) 0.6 (0-2) % Absolute Neuts (auto) 6.1 (1.5-7.7) 10^3/ul Absolute Lymphs (auto) 3.5 (1.0-4.8) 10^3/ul Absolute Monos (auto) 0.8 (0-0.8) 10^3/ul Absolute Eos (auto) 0.3 (0-0.6) 10^3/ul Absolute Basos (auto) 0.1 (0-0.2) 10^3/ul Absolute Nucleated RBC 0 10^3/ul Nucleated RBC % 0.1 Result Diagrams: 09/25/17 04:03 09/25/17 04:03 Lab Statement: Any lab studies that have been ordered have been reviewed, and results considered in the medical decision making process. Re-Evaluation - Re-Evaluation First Eval Re-Evaluation Time: 05:04 Comment: Results discussed. Patient will be discharged. Flu Symptom Course/Dx - Course Assessment/Plan: The patient is a 47 year old female complaining of a cough, fatigue, headache, sore throat, and myalgia for the last 3-4 days. In the ED course the patient was given acetaminophen, DuoNeb, Toradol, SoluMedrol, and IV fluids. Bloodwork was obtained. The patient is diagnosed with viral syndrome. The patient is instructed to follow up with primary care. - Diagnoses Provider Diagnoses: Viral syndrome Discharge - Discharge Plan Condition: Stable Disposition: HOME Patient Education Materials: Viral Syndrome (ED) Referrals: Jian Almeida MD [Primary Care Provider] - 3 Days Additional Instructions: Follow up with your primary care physician in three days. Return to the emergency department for any new or worsening symptoms. The documentation as recorded by the Johnson chin Thomas accurately reflects the service I personally performed and the decisions made by Yady bush Abdul, MD.
[2017-09-25 05:53] VITALS: BP 126/72
== END 2017-09-25 05:52 | disposition home or self-care (01) ==
LOC: ED 03:17
DX: B34.9 Viral infection, unspecified (principal); R05 Cough; J02.9 Acute pharyngitis, unspecified; R51 Headache; Z86.79 Personal history of other diseases of the circulatory system; R53.83 Other fatigue; F17.210 Nicotine dependence, cigarettes, uncomplicated
CPT/HCPCS: 36415; 80053; 85025; 87502; 87651; 94640; 99283; A9270-GY; J1885; J2930

== ENCOUNTER 2017-12-10 23:46 | Emergency (ER) | payer OTHER ==
--- NOTE | 2017-12-11 00:24 | ED ---
Lower Extremity - HPI Summary HPI Summary: 47-year-old brought in by ambulance with complaints of left foot and ankle pain that began a few days ago. Patient denies any known trauma or injury. States she had surgery on her ankle about 4 or [address] Fountain for a torn tendon. Has not had any issues since until now. Admits to swelling and bruising. Try taking her prescribed hydrocodone for pain with some relief. Is able to walk but with a lot of pain. Past medical history includes positive for depression hypertension and bipolar. No history of diabetes. Denies any redness itching or fever. Touch and movement makes the pain worse. No other complaints. - History of Current Complaint Chief Complaint: EDExtremityLower Stated Complaint: FOOT PAIN Time Seen by Provider: 12/11/17 00:04 Hx Obtained From: Patient Hx Last Menstrual Period: 07/18/16 Mechanism Of Injury: Unknown Onset of Pain: Days Onset/Duration: Worse Since Severity Initially: Moderate Severity Currently: Moderate Pain Intensity: 9 Pain Scale Used: 0-10 Numeric Location: Is Discrete @ - Left foot and ankle Character Of Pain: Sharp, Aching Associated Signs And Symptoms: Positive: Swelling, Bruising Aggravating Factor(s): Standing, Ambulation, Movement, Weight Bearing Alleviating Factor(s): Rest - Allergies/Home Medications Allergies/Adverse Reactions: Allergies Allergy/AdvReac Type Severity Reaction Status Date / Time amoxicillin Allergy Rash Verified 12/10/17 23:54 PMH/Surg Hx/FS Hx/Imm Hx Endocrine/Hematology History: Denies: Hx Anticoagulant Therapy, Hx Diabetes, Hx Thyroid Disease Cardiovascular History: Reports: Hx Hypertension, Other Cardiovascular Problems/ Disorders - HIGH CHOLESTEROL Denies: Hx Pacemaker/ICD Respiratory History: Reports: Hx Asthma - PRN INHALER, Hx Sleep Apnea Denies: Hx Chronic Obstructive Pulmonary Disease (COPD), Other Respiratory Problems/Disorders GI History: Denies: Hx Ulcer, Other GI Disorders History: Denies: Hx Renal Disease, Other Problems/Disorders Musculoskeletal History: Reports: Hx Arthritis - LEFT ANKLE, Hx Tendonitis - LEFT WRIST, LEFT ANKLE Denies: Other Musculoskeletal History Sensory History: Reports: Hx Contacts or Glasses - GLASSES Denies: Hx Hearing Aid Opthamlomology History: Reports: Hx Contacts or Glasses - GLASSES Neurological History: Reports: Hx Migraine - HISTORY OF, Other Neuro Impairments /Disorders - BIPOLAR Denies: Hx Dementia, Hx Seizures Psychiatric History: Reports: Hx Anxiety, Hx Depression, Hx Panic Disorder - ANXIETY/DEPRESSION/BI POLAR Denies: Hx Eating Disorder, Hx of Violent Episodes Against Others, Hx Substance Abuse - Surgical History Surgery Procedure, Year, and Place: LEFT WRIST CYST REMOVAL 2014. LEFT ANKLE ARTHROSCOPY 01/2013. LEFT KNEE ARTHROSCOPIC 2008. TUBAL LIGATION 2000. I & D ABD AREA DUE TO INFECTION RELATED TO CAT-SCRATCH FEVER AGE 6. RIGHT WRIST - TENDONITIS Hx Anesthesia Reactions: No - Immunization History Immunizations Up to Date: Yes Infectious Disease History: No Infectious Disease History: Denies: Hx Clostridium Difficile, Hx Hepatitis, Hx Human Immunodeficiency Virus (HIV), Hx of Known/Suspected MRSA, Hx Shingles, Hx Tuberculosis, Traveled Outside the [place] in Last 30 Days - Family History Known Family History: Positive: Hypertension, Diabetes, Other - cancer - colon; parkinsons - Social History Alcohol Use: None Hx Substance Use: No Substance Use Type: Reports: None Hx Tobacco Use: Yes Smoking Status (MU): Heavy Every Day Tobacco Smoker Amount Used/How Often: 1-10 CIG/DAY Length of Time of Smoking/Using Tobacco: 33 YEARS- SINCE AGE 10 Have You Smoked in the Last Year: Yes Review of Systems Constitutional: Negative ENT: Negative Cardiovascular: Negative Respiratory: Negative Gastrointestinal: Negative Positive: Arthralgia, Myalgia, Decreased ROM, Edema Positive: Bruising Neurological: Negative All Other Systems Reviewed And Are Negative: Yes Physical Exam Triage Information Reviewed: Yes Vital Signs On Initial Exam: Initial Vitals Temp Pulse Resp BP Pulse Ox 99.4 F 73 16 155/94 96 12/10/17 23:50 12/10/17 23:50 12/10/17 23:50 12/10/17 23:50 12/10/17 23:50 Vital Signs Reviewed: Yes Appearance: Positive: Well-Appearing, Well-Nourished, Pain Distress - Moderate Skin: Positive: Warm, Skin Color Reflects Adequate Perfusion, Dry, Other - no erythema, warmth or signs of infection or gout. Negative: Cold, Numb, Pale, Erythema @ Head/Face: Positive: Normal Head/Face Inspection Eyes: Positive: Conjunctiva Clear Neck: Positive: Supple Respiratory/Lung Sounds: Positive: Clear to Auscultation, Breath Sounds Present. Negative: Rales, Rhonchi, Wheezes Cardiovascular: Positive: Normal, RRR, Pulses are Symmetrical in both Upper and Lower Extremities - 2+. Negative: Murmur, Rub Abdomen Description: Positive: Nontender, Soft Bowel Sounds: Positive: Present Musculoskeletal: Positive: Limited @ - due to pain however better with passive, Pain @ - With palpation diffusely over left foot and ankle worse on the medial ankle and dorsal foot, Edema Left - diffuse, Other - the step-off or obvious deformity rest of MSK exam normal. Negative: Interruption @ Neurological: Positive: Normal, Sensory/Motor Intact, Alert, Oriented to Person Place, Time, NV Bundle Intact Distally Diagnostics - Vital Signs Vital Signs Temp Pulse Resp BP Pulse Ox 12/10/17 23:50 99.4 F 73 16 155/94 96 - Laboratory Lab Statement: Any lab studies that have been ordered have been reviewed, and results considered in the medical decision making process. - Radiology left foot/ankle Xray Interpretation: Positive (See Comments) - soft tissue swelling, no fx, surgical lesion cunieform bone Radiology Interpretation Completed By: ED Physician - Dr. Conteh and myself Lower Extremity Course/Dx - Course Course Of Treatment: given ibuprofen while in UC and one norco for pain. continue pain meds, RICE and follow up. aware of worsening signs and symptoms. no concern for other etiology such as gout or cellulitis as patient's exam was negative other than some limited ROM due to pain, better with passive and diffuse edema/tednerness. No bruising. Follow up ortho. Crutches. - Diagnoses Differential Diagnosis/HQI/PQRI: Positive: Contusion, Fracture (Closed), Sprain , Strain Provider Diagnoses: Left ankle sprain, Ankle pain, left, Swelling of left foot Discharge - Sign-Out/Discharge Documenting (check all that apply): Discharge/Admit/Transfer - Discharge Plan Condition: Good Disposition: HOME Prescriptions: HYDROcodone/ACETAMIN 5-325 MG* [[place] 5-325 TAB*] 1 tab PO Q6H PRN #5 tab MDD 2 PRN Reason: Pain Patient Education Materials: Arthralgia (ED), Ankle Sprain (ED) Referrals: Jian Almeida MD [Primary Care Provider] - Additional Instructions: make an appointment to follow up with ortho for further evaluation. refrain from weight bearing, use crutches and brace. rest, ice and elevate. ibuprofen/tylenol for pain and inflammation, as needed, with food. - Billing Disposition and Condition Condition: GOOD Disposition: Home
--- OUTSIDE RECORDS SUMMARY | 2017-12-11 00:42 | XMS REPORT ---
:1970 External Reference #:[id number] Author Organization [facility] Address [address] [address] Phone [phone] Care Team Providers Name Role Phone Jian Almeida MD Primary Care Physician Unavailable Payers Type Date Identification Numbers Payment Provider Subscriber Commercial Effective: Policy Number: [id number] [employer] Stephanie Olguin 2014 Medicaid PayID: [id number] [address] [address] [place] [address] Medigap Part B Expires: 2014 Policy Number: Medicaid Stephanie Olguin [id number] PayID: [id number] [address] [place] [address] Problems Date Description Provider Status Onset: 02/24/2014 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 Onset: 04/20/2015 Myalgia Alhaji Velásquez M.D. Active Onset: 01/15/2017 Episodic tension-type headache Yecenia Steiner MD Active Onset: 03/29/2017 Essential hypertension Jian Almeida M.D. Active Onset: 03/29/2017 Mixed hyperlipidemia Jian Almeida M.D. Active Onset: 03/29/2017 Gastroesophageal reflux disease Jian Almeida M.D. Active Onset: 03/29/2017 Mild recurrent major depression Jian Almeida M.D. Active Onset: 03/29/2017 Obesity Jian Almeida M.D. Active Onset: 03/29/2017 Mild intermittent asthma Jian Almeida M.D. Active Onset: 03/29/2017 Polyarthropathy Jian Almeida M.D. Active Onset: 03/29/2017 Low back pain Jian Almeida M.D. Active Onset: 03/29/2017 Migraine without aura, not Jian Almeida M.D. 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 Active Onset: 02/11/2015 Spasm Alhaji Velásquez M.D. Inactive Inactive: 11/05/2017 Onset: 04/20/2015 Left upper quadrant pain Alhaji Velásquez M.D. Inactive Inactive: 11/05/2017 Onset: 05/03/2017 Wrist joint pain Jian Almeida M.D. Inactive Inactive: 11/05/2017 Onset: 07/12/2017 Asthma without status asthmaticus Jian Almeida M.D. Inactive Inactive: 11/05/2017 Family History Date Family Member(s) Problem(s) Comments General Heart Disease General Diabetes General Cancer Mother Diabetes Social History Type Date Description Comments Lives With spouse Occupation Unemployed ETOH Use Denies alcohol use Smoking Heavy tobacco smoker (more than 10 cigarettes/day) Exercise Type/Frequency Exercises regularly Allergies, Adverse Reactions, Alerts Date Description Reaction Status Severity Comments 08/20/2013 Amoxicillin active Medications Medication Date Status Form Strength Qnty SIG Indications Ordering Provider Acetaminophen-Cod 11/22 Active Tablets 300-30mg 20tab 1 tab by Denise perez #3 s mouthever Shelton, y 4-6 M.D. hours as needed Meloxicam 11/22 Active Tablets 15mg 60tab 1 by Denise s mouth Shelton, once a M.D. day as needed Cepacol Sore 10/24 Active Lozenges 5-7.5mg 16uni take 2 J02.9 Zsofia Throat & /2018 ts tab by Panfilo Cough Extra mouth [employer] Strength three- four times a day as needed max dose 12 tabs/24 h Nasal Epworth 12 10/24 Active Solution 0.05% 30ml 2 sprays R05 Zsofia /2017 each Panfilo nostril [employer] 2x daily as needed for congestio n Tussin Mucus + 04/18 Active Syrup 100mg/5ML 118ml 5 ml by R05 Zsofia Chest Congestion mouth Panfilo, every 4 [employer] hours as needed Do not exceed=6 doses D3 High Potency 10/05 Active Capsules 1000Unit 90cap take one s capsule/t Juan Pablo ablet M.D. daily by mouth Ketoconazole 09/26 Active Cream 2% 120gm apply twice a Pachikara, day M.D. Clonazepam 07/19 Active Tablets 0.5mg 30tab once F41.0 Jian s daily Pachikara, M.D. Sertraline HCL 07/12 Active Tablets 100mg 45tab 1 1 tab F41.0 Deon E. s by mouth Vianney, every day M.D. Albuterol Sulfate 03/29 Active Nebulizer 0.63mg/3M 90ml one J45.20 L treatment Pachikara, every 4 M.D. as needed Dulera 03/29 Active Aerosol 200-5mcg/ 26.4g 2 puff J45.20 Jose D Act m twice a Kun. Ese, day M.D.,FACP Ibuprofen 03/29 Active Tablets 600mg 90tab three M13.0 Deon E. s times a Vianney, day M.D. Sumatriptan 03/29 Active Tablets 100mg 9tabs use at G43.009 Jose D Succinate onset of Allyssa Mulligan, head M.D.,FACP ache,may repeat after 2h as needed Metoprolol 03/29 Active Tablets 25mg 60tab 1 by G43.009 Deon E. Tartrate s mouth Vianney, twice a M.D. day Bupropion HCL ER 03/29 Active Tablets ER 150mg 30tab once F33.0 Jian (XL) 24HR s daily in [facility], the M.D. morning with food Quetiapine 03/29 Active Tablets 50mg 60tab take 2 Jian Fumarate s tablets Pachikara, by mouth M.D. everyday at bedtime Ventolin HFA 00/ Active Aerosol 108(90Bas 8gm inhale 2 [place] /0000 e) puff(s) Pachikara, mcg/Act every 4-6 M.D. hours by inhalatio n route as needed. Fluticasone Active Suspension 50mcg/Act 16gm 2 sprays Deon E. Propionate /0000 daily in [place], each M.D. nostril Omeprazole Active Capsules DR 20mg Take One Unknown Capsule By Mouth Every Day ALL Day Allergy Active Tablets 10mg 1 by Zsofia mouth Panfilo, every day [employer] Simvastatin Active Tablets 10mg 30tab Take 1 Jose D s Tablet By Allyssa Mulligan Mouth M.DHayder,FACP Everyday AT Bedtime Lisinopril Active Tablets 20mg 30tab take 1 [place] s tablet by Juan Pablo mouth M.D. every day Loratadine Active Tablets 10mg 30tab Take 1 Jose D s Tablet By Allyssa Mulligan Mouth M.DHayder,FACP Every Day Medrol 11/05 Hx Tablets 4mg 1pak medrol dosepack Allyssa Mulliagn, - as M.D.,FACP 11/13 Levofloxacin 11/05 Hx Tablets 500mg 7tabs one by mouth Allyssa Mulligan, - daily for M.D.,FACP 11/12 7 Mucinex 10/24 Hx Tablets ER 600mg 14tab 1 by R05 ofi 12HR s mouth Panfilo, - twice a [employer] Doxycycline 10/16 Hx Tablets 100mg 20tab 1 cap bid J20.9 Jian Monohydrate /2017 s Juan Pablo, - M.D. 10/24 Azithromycin 10/05 Hx Tablets 250mg 6tabs two tabs J20.9 day one, Varn, N.P. - one daily 10/15 till Benzonatate 10/05 Hx Capsules 100mg 30cap one by J20.9 s mouth Varn, N.P. - three 10/15 times daily as needed for cough Nystatin-Triamcin 09/14 Hx Cream 398824-4. 15gm apply to H62.40 [place] 1Unit/GM- the ear Pachikara, - % twice a M.D. Wagoner 08/20 Hx Tablets 5-325mg 30tab 1 tab by s mouth q4 Shelton, - - 6 hours M.D. 11/05 as needed pain Acetaminophen-Cod 08/16 Hx Tablets 300-30mg 20tab 1 tab by Denise perez #3 s mouthever Shelton, - y 4-6 M.D. 11/05 hours as needed Tramadol HCL 08/14 Hx Tablets 50mg 15tab 1 tab by Denise /2018 s mouth Shelton, - every 4-6 M.D. 11/05 hours as needed pain Azithromycin 07/12 Hx Tablets 250mg 6tabs 2 tab J06.9 today and Pachikara, - then 1tab M.D. 07/17 daily Prednisone 07/12 Hx Tablets 20mg 10tab 2 tab by J06.9 s mouth 5 Pachikara, - days M.D. 11/05 Mucinex 07/12 Hx Tablets ER 600mg 60tab 1 tab J06.9 12HR s twice a Pachikara, - day by M.D. 10/24 mouth needed Tramadol HCL 05/03 Hx Tablets 50mg 45tab three M25.532 s times a Pachikara, - day as M.D. 11/05 needed Sertraline HCL 04/13 Hx Tablets 100mg 30tab 1 by F41.0 s mouth Pachikara, - every day M.D. 07/12 Clonazepam 04/13 Hx Tablets 0.5mg 30tab 1 tab in F41.0 Dispers s in the Pachikara, - morning M.D. 07/19 as needed Fluoxetine HCL 03/29 Hx Capsules 40mg 90cap 1 by s mouth Pachikara, - every day M.D. 03/29 Duloxetine HCL 03/[address] 20mg 30cap 1 by Part s mouth Pachikara, - every day M.D. 03/29 Venlafaxine HCL 03/29 Hx Tablets 100mg 90tab 1 by s mouth bid Pachikara, - M.D. 03/29 Melatonin ER 03/29 Hx Tablets ER 10mg 1 by mouth Pachikara, - every M.D. 10/05 night at bedtime Ketorolac 03/29 Hx Tablets 10mg 20tab take 1 by [place] Trometh s mouth Pachikara, - every 8 M.D. 03/29 hours needed for migraine. take with food. Sertraline HCL 03/29 Hx Tablets 50mg 30tab 1 by F41.0 s mouth Pachikara, - every day M.D. 04/13 Alprazolam 03/29 Hx Tablets 0.25mg 30tab once a F41.0 s day Pachikara, - M.D. 04/13 Ultram 03/26 Hx Tablets 50mg 45tab one s tablet Shelton, - every 12 M.D. 03/29 hours needed for pain orally Acetaminophen-Cod 03/07 Hx Tablets 300-30mg 20tab 1 tab by Denise perez #3 /2016 s mouth Shelton, - every 4-6 M.D. 03/29 hours needed for pain For post op pain Do not fill until 03/19/17 Indomethacin 01/15 Hx Capsules 25mg 90cap 1 by G44.219 Yecenia s mouth calista Steiner MD - to three 03/29 times day with food as needed for headache. Tramadol HCL 11/24 Hx Tablets 50mg 42tab two times S93.402A s a day as Александр, - needed M.D. 04/01 Naproxen 08/24 Hx Tablets 500mg 90tab 1 by M75.42 Anibal Vargas s mouth Altagracia, - twice a MD 06/21 day needed pain Tramadol HCL 08/13 Hx Tablets 50mg 42tab two times S93.402A s a day as Александр, - needed M.D. 01/23 Skelaxin 04/20 Hx Tablets 800mg 30tab 1 po tid s prn Vinay edmonds M.D. 01/23 Methylprednisolon 02/11 Hx Tablets 32mg 1tabs 1 tab by 728.85 kylie Velásquez, - every day M.D. 01/23 for days, then start dose pack taper Cyclobenzaprine 05/05 Hx Tablets 10mg 60tab one by s kylie Velásquez, - three M.D. 01/23 times day as needed spasm Percocet 03/12 Hx Tablets 5-325mg 40tab 1-2 by s kylie Velásquez, - every 12 M.D. 01/23 hours needed pain Medrol (Param) 03/03 Hx Tablets 4mg 1pack take as directed Didier, - by pack M.D. 01/23 Oxycodone HCL 03/03 Hx Capsules 5mg 30cap 1 tab po s q 6 hrs Didier, - prn pain M.D. 03/12 Ibuprofen 02/24 Hx Tablets 600mg 60tab 1 by s kylie Velásquez, - three M.D. 01/16 times day as needed Acetaminophen 02/24 Hx Tablets 500mg 60tab 1 tab s q6hrs prn Vinay - ramon edmonds M.D. 04/19 Tramadol HCL 12/04 Hx Tablets 50mg 30tab 1-2 s lam Velásquez, - three M.D. 05/12 times day as needed pain Diphen 10/20 Hx Tablets 25mg 2tabs 1 by kylie Velásquez, - bedtime M.D. 10/07 as needed for sleep Lyrica 10/16 Hx Capsules 25mg 60cap 1 by s kylie Velásquez, - twice a M.D. 04/19 day needed Tramadol HCL 10/16 Hx Tablets 50mg 60tab 1-2 s lam Velásquez, - po qhs M.D. 05/12 Oxycodone HCL 08/20 Hx Capsules 5mg 40cap 1 tab po s bid prn Александр, - pain M.D. 10/15 Tramadol HCL 05/26 Hx Tablets 50mg 60tab bid prn s pain Beth Fountain M.D. 08/20 Wagoner 04/11 Hx Tablets 5-325mg 40tab 1 po bid Beth Alanis M.D. 08/20 Oxycodone HCL 01/15 Hx Tablets 5mg 30tab 1 po bid s prn Beth Mcarthur M.D. 08/20 Wagoner 01/02 Hx Tablets 5-325mg 24tab take 1 s tab po Александр - bid prn M.DHayder 08/20 Hydrocodone 12/11 Hx Tablets 5-300mg 75tab 1 tablet Rolly Bitartrate/Acetam s by mouth shabnam Fountain - every 6 M.DHayder 08/20 hours needed Tramadol HCL 05/02 Hx Tablets 50mg 90tab tid prn Beth Alanis M.D. 08/20 Flexeril 09/11 Hx Tablets 10mg 90tab 1 po tid Alhaji s Beth Ambriz M.D. 08/20 Xanax 00 Hx 0.5mg One tab Unknown /0000 by mouth - qid as 02/23 Amitriptyline HCL Hx 100mg one tab Unknown /0000 at - bedtime 01/23 Zestril Hx Tablets 20mg 1 by Unknown /0000 mouth - every day 01/23 Diphenhydramine Hx Capsules 25mg One Unknown HCL /0000 tablet by - mouth at 01/23time daily Clonazepam 00/ Hx Unknown /0000 - 01/23 Oxycodone HCL 00/00 Hx Tablets 5mg Lora, /0000 Hai, DO - 01/15 Cetirizine HCL 00/ Hx Tablets 10mg Maddison-He /0000 Beth byrd, 01/23 Pristiq 00/00 Hx Tablets ER 100mg Art, /0000 24HR MD Maria Luz - 01/23 Quetiapine 00/00 Hx Tablets Unknown Fumarate /0000 - 03/29 Xanax 00/00 Hx 0.25 As Unknown /0000 directed - 04/13 Ipratropium 00 Hx Solution 0.06% 15ml spray 2 [place] /0000 sprays Pachcynthia, - twice a M.D. nasally Fluoxetine HCL Hx Capsules 20mg Take One Unknown /0000 Capsule - By Mouth 03/29 Every Buspirone HCL Hx Tablets 10mg Take 1 Unknown /0000 Tablet By - Mouth 03/29 Twice A Day Cyclobenzaprine Hx Tablets 10mg Take 1 Unknown HCL /0000 Tablet By - Mouth 3 01/15 Times A Day For 30 Days Ketorolac Hx Tablets 10mg Unknown Tromethamine /0000 - 01/15 Medications Administered in Office Medication Date Status Form Strength Qnty SIG Indications Ordering Provider Depomedrol Administered Injection Denise 40MG 017 Shazia Shelton Depomedrol Administered Injection Anibal F 40MG 017 MD Altagracia Immunizations CPT Code Status Date Vaccine Reaction Lot # [id number] Given 05/03/2017 Pneumonia Vaccine no immediate reaction, [id number] pt tolerated well 25638 Given 03/29/2017 Influenza Virus Vaccine, no immediate reaction, [id number] Quadrivalent, Split, pt tolerated well Preservative Free Vital Signs Date Vital Result Comment 11/22/2017 Heart Rate 67 /min BP Systolic 122 mmHg BP Diastolic 76 mmHg Respiratory Rate 16 /min Body Temperature 98.0 F Pain Level 6 11/05/2017 Weight 261.00 lb Heart Rate 77 /min BP Systolic Sitting 120 mmHg BP Diastolic Sitting 82 mmHg Body Temperature 97.7 F O2 % BldC Oximetry 96 % 10/24/2017 Weight 255.25 lb pt declined Heart Rate 73 /min BP Systolic Sitting 124 mmHg BP Diastolic Sitting 76 mmHg Body Temperature 97.3 F O2 % BldC Oximetry 98 % 10/16/2017 Weight 257.50 lb Heart Rate 80 /min BP Systolic 124 mmHg BP Diastolic 68 mmHg Body Temperature 97.9 F O2 % BldC Oximetry 96 % 10/05/2017 Heart Rate 67 /min BP Systolic 144 mmHg BP Diastolic 84 mmHg Body Temperature 98.2 F O2 % BldC Oximetry 94 % 09/14/2017 Height 67 inches 5'7" Weight 257.50 lb Heart Rate 64 /min BP Systolic Sitting 120 mmHg BP Diastolic Sitting 80 mmHg O2 % BldC Oximetry 97 % BMI (Body Mass Index) 40.3 kg/m2 08/23/2017 Height 67 inches 5'7" Weight 253.00 lb Heart Rate 72 /min BP Systolic 119 mmHg BP Diastolic 76 mmHg Body Temperature 96.6 F BMI (Body Mass Index) 39.6 kg/m2 08/02/2017 Height 67 inches 5'7" Weight 253.00 lb Heart Rate 79 /min BP Systolic 102 mmHg BP Diastolic 64 mmHg Respiratory Rate 16 /min Body Temperature 97.5 F Pain Level 6 BMI (Body Mass Index) 39.6 kg/m2 07/12/2017 Height 67 inches 5'7" Weight 253.25 lb Heart Rate 67 /min BP Systolic Sitting 122 mmHg BP Diastolic Sitting 70 mmHg Body Temperature 97.2 F O2 % BldC Oximetry 92 % BMI (Body Mass Index) 39.7 kg/m2 05/03/2017 Height 67 inches 5'7" Weight 243.19 lb Heart Rate 74 /min BP Systolic 116 mmHg BP Diastolic 68 mmHg Body Temperature 97.6 F O2 % BldC Oximetry 94 % BMI (Body Mass Index) 38.1 kg/m2 04/30/2017 Height 67 inches 5'7" Weight 250.00 lb Respiratory Rate 16 /min Body Temperature 97.6 F Pain Level 6 BMI (Body Mass Index) 39.2 kg/m2 04/19/2017 Height 67 inches 5'7" Weight 250.00 lb Heart Rate 68 /min Respiratory Rate 20 /min Body Temperature 96.2 F Pain Level 5 BMI (Body Mass Index) 39.2 kg/m2 04/13/2017 Weight 250.00 lb Heart Rate 70 /min BP Systolic Sitting 110 mmHg BP Diastolic Sitting 80 mmHg Body Temperature 97.2 F O2 % BldC Oximetry 97 % 03/29/2017 Height 67 inches 5'7" Weight 242.00 lb Heart Rate 88 /min BP Systolic 136 mmHg BP Diastolic 88 mmHg Respiratory Rate 20 /min Body Temperature 96.3 F Pain Level 4 BMI (Body Mass Index) 37.9 kg/m2 03/29/2017 Height 67 inches 5'7" Weight 242.25 lb Heart Rate 85 /min BP Systolic 132 mmHg BP Diastolic 84 mmHg Body Temperature 97.6 F O2 % BldC Oximetry 96 % BMI (Body Mass Index) 37.9 kg/m2 03/07/2017 Height 67 inches 5'7" Weight 240.00 lb Heart Rate 84 /min BP Systolic 120 mmHg BP Diastolic 82 mmHg Respiratory Rate 20 /min Body Temperature 97.7 F Pain Level 5 BMI (Body Mass Index) 37.6 kg/m2 01/19/2017 Height 67 inches 5'7" Weight 240.00 lb BP Systolic 139 mmHg BP Diastolic 84 mmHg Respiratory Rate 14 /min Pain Level 4 BMI (Body Mass Index) 37.6 kg/m2 01/15/2017 Height 67 inches 5'7" Weight 240.00 lb Heart Rate 68 /min BP Systolic Sitting 126 mmHg BP Diastolic Sitting 88 mmHg Respiratory Rate 14 /min BMI (Body Mass Index) 37.6 kg/m2 12/26/2016 Height 67 inches 5'7" Weight 240.00 lb BP Systolic 119 mmHg BP Diastolic 85 mmHg Respiratory Rate 20 /min Body Temperature 97.7 F Pain Level 5 BMI (Body Mass Index) 37.6 kg/m2 11/24/2016 Height 67 inches 5'7" Weight 240.00 lb BP Systolic 119 mmHg BP Diastolic 74 mmHg Body Temperature 97.2 F Pain Level 5 BMI (Body Mass Index) 37.6 kg/m2 08/24/2016 Height 67 inches 5'7" Weight 240.00 lb Heart Rate 81 /min BP Systolic 139 mmHg BP Diastolic 88 mmHg Pain Level 6 BMI (Body Mass Index) 37.6 kg/m2 08/09/2016 Heart Rate 60 /min Respiratory Rate 18 /min Body Temperature 97.2 F 07/25/2016 Height 67 inches 5'7" Weight 240.00 lb Heart Rate 78 /min BP Systolic Sitting 118 mmHg BP Diastolic Sitting 86 mmHg Respiratory Rate 16 /min Body Temperature 98.7 F BMI (Body Mass Index) 37.6 kg/m2 01/25/2016 Height 67 inches 5'7" Weight 220.00 lb Heart Rate 60 /min Respiratory Rate 18 /min Pain Level 6 BMI (Body Mass Index) 34.5 kg/m2 08/13/2015 Height 67 inches 5'7" Weight 230.00 lb Heart Rate 76 /min BP Systolic 118 mmHg BP Diastolic 79 mmHg BMI (Body Mass Index) 36.0 kg/m2 06/16/2015 Height 67 inches 5'7" Weight 244.00 lb Pain Level 6 at night BMI (Body Mass Index) 38.2 kg/m2 04/20/2015 Height 67 inches 5'7" Weight 244.00 lb Pain Level 5 BMI (Body Mass Index) 38.2 kg/m2 03/04/2015 Height 67 inches 5'7" Weight 244.00 lb Pain Level 4 BMI (Body Mass Index) 38.2 kg/m2 02/11/2015 Height 67 inches 5'7" Weight 244.00 lb Pain Level 5 BMI (Body Mass Index) 38.2 kg/m2 05/05/2014 Height 67 inches 5'7" Heart Rate 83 /min BP Systolic 119 mmHg BP Diastolic 83 mmHg 03/24/2014 Height 67 inches 5'7" Weight 232.00 lb Pain Level 10 BMI (Body Mass Index) 36.3 kg/m2 03/03/2014 Height 67 inches 5'7" Weight 232.00 lb Heart Rate 104 /min BP Systolic 137 mmHg BP Diastolic 93 mmHg BMI (Body Mass Index) 36.3 kg/m2 02/24/2014 Height 67 inches 5'7" Weight 232.00 lb Heart Rate 70 /min BMI (Body Mass Index) 36.3 kg/m2 01/20/2014 Height 67 inches 5'7" Weight 235.00 lb Heart Rate 67 /min BP Systolic 129 mmHg BP Diastolic 92 mmHg BMI (Body Mass Index) 36.8 kg/m2 12/04/2013 Height 67 inches 5'7" Weight 235.00 lb Heart Rate 86 /min BP Systolic 130 mmHg BP Diastolic 100 mmHg Pain Level 4 BMI (Body Mass Index) 36.8 kg/m2 10/16/2013 Height 67 inches 5'7" Weight 240.00 lb Heart Rate 85 /min BP Systolic 120 mmHg BP Diastolic 90 mmHg BMI (Body Mass Index) 37.6 kg/m2 09/18/2013 Height 67 inches 5'7" Weight 200.00 lb Heart Rate 88 /min BMI (Body Mass Index) 31.3 kg/m2 08/20/2013 Height 67 inches 5'7" Weight 200.00 lb Heart Rate 86 /min BP Systolic 183 mmHg BP Diastolic 110 mmHg BMI (Body Mass Index) 31.3 kg/m2 Results Test Date Test Result H/L Range Note Comp Metabolic Panel 11/08/2017 Sodium 138 mmol/L Low 139-145 Potassium 3.5 mmol/L 3.5-5.0 Chloride 104 mmol/L 101-111 Co2 Carbon Dioxide 27 mmol/L 22-32 Anion Gap 7 mmol/L 2-11 Glucose 110 mg/dL High 70-100 Blood Urea Nitrogen 9 mg/dL 6-24 Creatinine 0.81 mg/dL 0.51-0.95 BUN/Creatinine Ratio 11.1 8-20 Calcium 9.3 mg/dL 8.6-10.3 Total Protein 6.7 g/dL 6.4-8.9 Albumin 4.1 g/dL 3.2-5.2 Globulin 2.6 g/dL 2-4 Albumin/Globulin Ratio 1.6 1-3 Total Bilirubin 0.30 mg/dL 0.2-1.0 Alkaline Phosphatase 55 U/L 34-104 Alt 17 U/L 7-52 Ast 15 U/L 13-39 Egfr Non- 76.1 >60 Egfr 97.9 >60 1 Lipid Profile (Trig/Chol/HDL) 11/08/2017 Triglycerides 230 mg/dL 2 Cholesterol 258 mg/dL 3 HDL Cholesterol 36.7 mg/dL 4 LDL Cholesterol 175 mg/dL 5 Laboratory test finding 11/08/2017 TSH (Thyroid Stim 6.12 mcIU/mL High 0.34-5.60 Horm) Cortisol 8.13 g/dL 6 CBC Auto Diff 11/08/2017 White Blood Count 11.6 10^3/uL High 3.5-10.8 Red Blood Count 4.88 10^6/uL 4.0-5.4 Hemoglobin 15.1 g/dL 12.0-16.0 Hematocrit 46 % 35-47 Mean Corpuscular Volume 93 fL 80-97 Mean Corpuscular Hemoglobin 31 pg 27-31 Mean Corpuscular HGB Conc 33 g/dL 31-36 Red Cell Distribution Width 15 % 10.5-15 Platelet Count 294 10^3/uL 150-450 Mean Platelet Volume 7.0 um3 Low 7.4-10.4 Abs Neutrophils 6.0 10^3/uL 1.5-7.7 Abs Lymphocytes 4.5 10^3/uL 1.0-4.8 Abs Monocytes 0.7 10^3/uL 0-0.8 Abs Eosinophils 0.2 10^3/uL 0-0.6 Abs Basophils 0.1 10^3/uL 0-0.2 Abs Nucleated RBC 0 10^3/uL Granulocyte % 51.7 % 38-83 Lymphocyte % 39.2 % 25-47 Monocyte % 6.5 % 0-7 Eosinophil % 2.1 % 0-6 Basophil % 0.5 % 0-2 Nucleated Red Blood Cells % 0 Laboratory test finding 09/25/2017 Rapid Strep Molecular Negative Negative 7 Rapid Influenza A & B 09/25/2017 Influenza A Molecular NEGATIVE Negative 8 Molecular Influenza B Molecular NEGATIVE Negative Laboratory test finding 09/25/2017 Rapid Strep A SEE RESULT BELOW 9 Rapid Influenza A B Antigen SEE RESULT BELOW 10 CBC Auto Diff 09/25/2017 White Blood Count 10.7 10^3/uL 3.5-10.8 Red Blood Count 4.69 10^6/uL 4.0-5.4 Hemoglobin 15.1 g/dL 12.0-16.0 Hematocrit 43 % 35-47 Mean Corpuscular Volume 92 fL 80-97 Mean Corpuscular Hemoglobin 32 pg High 27-31 Mean Corpuscular HGB Conc 35 g/dL 31-36 Red Cell Distribution Width 15 % 10.5-15 Platelet Count 288 10^3/uL 150-450 Mean Platelet Volume 7 um3 Low 7.4-10.4 Abs Neutrophils 6.1 10^3/uL 1.5-7.7 Abs Lymphocytes 3.5 10^3/uL 1.0-4.8 Abs Monocytes 0.8 10^3/uL 0-0.8 Abs Eosinophils 0.3 10^3/uL 0-0.6 Abs Basophils 0.1 10^3/uL 0-0.2 Abs Nucleated RBC 0 10^3/uL Granulocyte % 56.5 % 38-83 Lymphocyte % 32.7 % 25-47 Monocyte % 7.6 % High 0-7 Eosinophil % 2.6 % 0-6 Basophil % 0.6 % 0-2 Nucleated Red Blood Cells % 0.1 Comp Metabolic Panel 09/25/2017 Sodium 134 mmol/L 133-145 Potassium 3.7 mmol/L 3.5-5.0 Chloride 101 mmol/L 101-111 Co2 Carbon Dioxide 27 mmol/L 22-32 Anion Gap 6 mmol/L 2-11 Glucose 104 mg/dL High 70-100 Blood Urea Nitrogen 8 mg/dL 6-24 Creatinine 0.70 mg/dL 0.51-0.95 BUN/Creatinine Ratio 11.4 8-20 Calcium 9.3 mg/dL 8.6-10.3 Total Protein 7.0 g/dL 6.4-8.9 Albumin 4.0 g/dL 3.2-5.2 Globulin 3.0 g/dL 2-4 Albumin/Globulin Ratio 1.3 1-3 Total Bilirubin 0.20 mg/dL 0.2-1.0 Alkaline Phosphatase 62 U/L 34-104 Alt 15 U/L 7-52 Ast 13 U/L 13-39 Egfr Non- 90.1 >60 Egfr 115.9 >60 11 Laboratory test 03/20/2017 Surgical Pathology SEE RESULT BELOW 12, 13 finding Surgical Pathology 03/12/2014 S RUN DATE: <SEE NOTE> Laboratory test 02/27/2013 Troponin I 0 ng/mL 0-0.06 15 finding Basic Metabolic Panel 02/27/2013 Sodium 138 mmol/L 133-145 Potassium 3.7 mmol/L 3.5-5.0 Chloride 107 mmol/L 101-111 Co2 Carbon Dioxide 26.0 mmol/L 22-32 Anion Gap 5.0 mmol/L 2-11 Glucose 94 mg/dL 70-100 Blood Urea Nitrogen 8 mg/dL 6-24 Creatinine 0.60 mg/dL 0.50-1.40 BUN/Creatinine Ratio 13.3 8-20 Calcium 9.0 mg/dL 8.1-9.9 Egfr Non- 110.2 >60 Egfr 141.7 >60 16 Comp Metabolic Panel 01/03/2013 Sodium 137 mmol/L 133-145 Potassium 4.4 mmol/L 3.5-5.0 Chloride 108 mmol/L 101-111 Co2 Carbon Dioxide 23.0 mmol/L 22-32 Anion Gap 6.0 mmol/L 2-11 Glucose 106 mg/dL High 70-100 Blood Urea Nitrogen 9 mg/dL 6-24 Creatinine 0.70 mg/dL 0.50-1.40 BUN/Creatinine Ratio 12.9 8-20 Calcium 9.7 mg/dL 8.1-9.9 Total Protein 6.8 g/dL 6.2-8.1 Albumin 4.1 g/dL 3.6-5.4 Globulin 2.7 g/dL 2-4 Albumin/Globulin Ratio 1.5 1-3 Total Bilirubin 0.7 mg/dL 0.4-1.5 Alkaline Phosphatase 46 U/L 30-110 Alt 36 U/L 14-54 Ast 25 U/L 12-42 Egfr Non- 92.2 >60 Egfr 118.6 >60 17 Inr/Protime 01/03/2013 Inr 0.88 0.87-0.97 CBC Auto Diff 01/03/2013 White Blood Count 8.3 10^3/uL 4.8-10.8 Red Blood Count 5.03 10^6/uL 4.0-5.4 Hemoglobin 16.0 g/dL 12.0-16.0 Hematocrit 48 % High 35-47 Mean Corpuscular Volume 95 fL 80-97 Mean Corpuscular Hemoglobin 32 pg High 27-31 Mean Corpuscular HGB Conc 34 g/dL 31-36 Red Cell Distribution Width 14 % 10.5-15 Platelet Count 225 10^3/uL 150-450 Mean Platelet Volume 7 um3 Low 7.4-10.4 Abs Neutrophils 4.5 10^3/uL 1.5-7.7 Abs Lymphocytes 2.8 10^3/uL 1.0-4.8 Abs Monocytes 0.7 10^3/uL 0-0.8 Abs Eosinophils 0.3 10^3/uL 0-0.6 Abs Basophils 0.1 10^3/uL 0-0.2 Abs Nucleated RBC 0.01 10^3/uL Granulocyte % 54.3 % 38-83 Lymphocyte % 33.9 % 25-47 Monocyte % 8.0 % 1-9 Eosinophil % 3.0 % 0-6 Basophil % 0.8 % 0-2 Nucleated Red Blood Cells % 0.1 Urinalysis W/Microscopic 01/03/2013 Urine Color Brianna Urine Appearance Clear Urine Specific [place] 1.023 1.010-1.030 Urine Esterase Negative Negative Urine Nitrate Negative Negative Urine Urobilinogen Negative E.U./dL Negative Urine Protein Negative mg/dL Negative Urine pH 5.0 5-9 Urine Blood 1+ Negative Urine Ketones Negative mg/dL Negative Urine Bilirubin 1+ Negative Urine Glucose Negative mg/dL Negative Urine WBC 1+ (<10 /hpf) None Seen Urine RBC None Seen None Seen Urine Mucus Present /lpf Absent Bacteria Urine 1+ None Seen Ua Comments (SEE NOTE) 18 1 Because ethnic data is not always readily available, this report includes an eGFR for both -Americans and non- Americans. The National Kidney Disease Education Program (NKDEP) does not endorse the use of the MDRD equation for patients that are not between the ages of 18 and 70, are , have extremes of body size, muscle mass, or nutritional status, or are non- or non-. According to the [employer], irrespective of diagnosis, the stage of the disease is based on the level of kidney function: Stage Description GFR(mL/min/1.73 m(2)) 1 Kidney damage with normal or decreased GFR 90 2 Kidney damage with mild decrease in GFR 60-89 3 Moderate decrease in GFR 30-59 4 Severe decrease in GFR 15-29 5 Kidney failure <15 (or dialysis) 2 Desirable: <150 Borderline High: 150-199 High: 200-499 Very High: >500 3 Desirable: <200 Borderline High: 200-239 High: >239 4 Low: <40 Desirable: 40-60 High: >60 5 Desirable: <100 Near Optimal: 100-129 Borderline High: 130-159 High: 160-189 Very High: >189 6 AM 8.7-22.4 PM <10 7 Manager Client Service: [id number] Manager Client Service: [id number] SEE RESULT BELOW Name: STEPHANIE OLGUIN : [address]: Karan Conteh MD Acct: [id number] Unit: [id number] AGE: 47 Location: ED Re09/25/17 SEX: F Status: REG ER SPEC: [id number] ZËO: 09/25/[address] [facility] [address]: Karan Conteh MD REQ: [id number] RECD: 09/25/17 STATUS: ERIC NDIAYE DR: Jian Almeida MD _ SOURCE: THROAT SPDESC: ORDERED: Strep A Request Procedure Result Reported Site Rapid Strep A Request Final 09/25/17410 ML Specimen received for Rapid Strep A Molecular testing * ML - Main Lab . END OF REPORT DEPARTMENT OF PATHOLOGY, [address] [place] [address] Selvin Tong M.D. Director [facility] # [id number] 10 SEE RESULT BELOW Name: STEPHANIE OLGUIN : [address]: Karan Conteh MD Acct: [id number] Unit: [id number] AGE: 47 Location: ED Re09/25/17 SEX: F Status: REG ER SPEC: [id number] ZOË: 09/25/[address] [facility] [address]: Karan Conteh MD REQ: [id number] RECD: 09/25/17 STATUS: ERIC NDIAYE DR: Jian Almeida MD _ SOURCE: NASAL SPDESC: ORDERED: Flu A B Request Procedure Result Reported Site Rapid Influenza A B Request Final 09/25/17410 ML Specimen received for Influenza A/B Molecular testing * - [facility] . END OF REPORT DEPARTMENT OF PATHOLOGY, [address] [place] [address] Selvin Tong M.D. Director [facility] # [id number] 11 Because ethnic data is not always readily available, this report includes an eGFR for both -Americans and non- Americans. The National Kidney Disease Education Program (NKDEP) does not endorse the use of the MDRD equation for patients that are not between the ages of 18 and 70, are , have extremes of body size, muscle mass, or nutritional status, or are non- or non-. According to the National Kidney Foundation, irrespective of diagnosis, the stage of the disease is based on the level of kidney function: Stage Description GFR(mL/min/1.73 m(2)) 1 Kidney damage with normal or decreased GFR 90 2 Kidney damage with mild decrease in GFR 60-89 3 Moderate decrease in GFR 30-59 4 Severe decrease in GFR 15-29 5 Kidney failure <15 (or dialysis) 12 [id number] 13 SEE RESULT BELOW Name: STEPHANIE OLGUIN : [address]: Denise Shelton MD Acct: [id number] Unit: [id number] AGE: 46 Location: [facility] Re03/20/17 SEX: F [place] [facility] [place]: [id number] ZOË: 03/20/17-[address] [facility] [address]: Denise Shelton MD REQ: [id number] RECD: 03/20/17 STATUS: SOUT _ ORDERED: LEVEL 3 COMMENTS: [id number] FINAL DIAGNOSIS Soft tissue, left wrist, excision: -- Ganglion cyst. PRE-OPERATIVE DIAGNOSIS Left wrist mass. GROSS DESCRIPTION The specimen is received in formalin labeled, Left Wrist Ganglion Excision, and consists of a 1.2 by up to 0.9 x 0.3 cm coronado-pink irregular rubbery fibrous tissue fragment which is submitted entirely in one cassette. Signed (signature on file) Selvin Tong MD 1435 END OF REPORT * ML=Testing performed at Main Lab DEPARTMENT OF PATHOLOGY, [facility] [place][note 2] [employer] [place] [address] Selvin Tong M.D. Director [facility] # [id number] 14 RUN DATE: 03/13/14 [facility] LAB LIVE PAGE 1 RUN TIME: 5905 [facility] [place][note 2] [place], [place] [address] Specimen Inquiry Name: STEPHANIE OLGUIN : [address]: Kyra Medina Acct: [id number] Unit: [id number] AGE: 43 Location: [facility] Re03/12/14 SEX: F Status: [place] [facility] [place]: [id number] ZOË: 03/12/14- [facility] DR: Kyra Medina MD REQ: [id number] RECD: 03/12/14-1199 STATUS: SOUT _ ORDERED: LEVEL III FINAL DIAGNOSIS Wrist, right, arthroscopic shavings: Benign cartilaginous tissue and synovial tissue fragments. 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 GROSS DESCRIPTION The specimen is received in formalin labeled Stephanie Olguin, Right Wrist Shavings and consists of a 1.5 x 0.9 x 0.3 cm. aggregate of yellow and white tissue fragments. Senior Pharmacy Technician sections, one cassette. Signed (signature on file) Pamela Ayala MD 11/19 1732 END OF REPORT * ML=Testing performed at Main Lab DEPARTMENT OF PATHOLOGY, [address] [place] [address] Selvin Tong M.D. Director [facility] # [id number] 15 Reference Range and Interpretation: TnI (ng/mL) Interpretation Less Than 0.06 ng/mL Not supportive of diagnosis of TN 0.06 - 0.50 ng/mL Indeterminate: suggest serial studies if clinically indicated. Greater than 0.5 ng/mL Consistent with diagnosis of TN 16 Because ethnic data is not always readily available, this report includes an eGFR for both -Americans and non- Americans. The National Kidney Disease Education Program (NKDEP) does not endorse the use of the MDRD equation for patients that are not between the ages of 18 and 70, are , have extremes of body size, muscle mass, or nutritional status, or are non- or non-. According to the National Kidney Foundation, irrespective of diagnosis, the stage of the disease is based on the level of kidney function: Stage Description GFR(mL/min/1.73 m(2)) 1 Kidney damage with normal or decreased GFR 90 2 Kidney damage with mild decrease in GFR 60-89 3 Moderate decrease in GFR 30-59 4 Severe decrease in GFR 15-29 5 Kidney failure <15 (or dialysis) 17 Because ethnic data is not always readily available, this report includes an eGFR for both -Americans and non- Americans. The National Kidney Disease Education Program (NKDEP) does not endorse the use of the MDRD equation for patients that are not between the ages of 18 and 70, are , have extremes of body size, muscle mass, or nutritional status, or are non- or non-. According to the National Kidney Foundation, irrespective of diagnosis, the stage of the disease is based on the level of kidney function: Stage Description GFR(mL/min/1.73 m(2)) 1 Kidney damage with normal or decreased GFR 90 2 Kidney damage with mild decrease in GFR 60-89 3 Moderate decrease in GFR 30-59 4 Severe decrease in GFR 15-29 5 Kidney failure <15 (or dialysis) 18 ;[facility] PRESENT Procedures Date CPT Code Description Status 08/14/2017 95843 Dequervains-Tendon Sheath Incision/Extensor Completed Sheath,Wrist 08/14/2017 12507 Dequervains-Tendon Sheath Incision/Extensor Completed Sheath,Wrist 04/19/2017 02681 Inject Tendon Sheath Or Ligament Aponeurosis Eg Plantar Completed Fascia 03/20/2017 37316 Excision Ganglion Wrist/ Dorsal Or Volar; Primary Completed 03/20/2017 07728 Excision Ganglion Wrist/ Dorsal Or Volar; Primary Completed 08/24/2016 24014 Inject/Drain Joint/Bursa Major Completed 07/25/2016 57188 Excise Benign lesion 1.1-2CM Trunk/Arm/Leg Completed 03/12/2014 02982 Arthroscopy Wrist Excision/Repair Triang Completed Fibrocartilage/Debride 03/12/2014 98351 Arthroscopy Wrist Excision/Repair Triang Completed Fibrocartilage/Debride 03/12/2014 45995 Dequervains-Tendon Sheath Incision/Extensor Completed Sheath,Wrist 12/04/2013 63703 Rad Exam; Wrist, Comp, Min 3 Views Completed 09/18/2013 82711 Rad Shoulder Comp, Min. 2 Views Completed 05/26/2013 79992 Walking Cast Completed 03/05/2013 54655 Rad Exam; Foot Comp Completed 02/14/2013 17347 Walking Cast Completed 01/15/2013 14891 Short Leg Cast Completed 01/07/2013 18675 Repair Flexor Tendon Leg Secondary W/Wo Graft Completed 11/22/2012 59545 Walking Cast Completed 11/22/2012 57720 Short Leg Cast Completed 11/13/2012 91658 Walking Cast Completed 09/12/2011 65534 Rad Exam; Wrist, Comp, Min 3 Views Completed Encounters Type Date Location Provider CPT E/M Dx Office Visit 11/05/2017 1:00p [facility] Internal Medicine Jose D Mulligan, [address] J40 - [address] [place] Mccray,FACP J31.2 Office Visit 10/24/2017 3:20p [facility] Internal Medicine Jose Whittaker, UNIVERSITY ADMINISTRATOR [address] J45.40 [address] J02.9 R05 G47.33 F17.210 Office Visit 10/16/2017 4:00p [facility] Internal Medicine Jian Almeida, 16887 J20.9 - [place] Ming Mccray Office Visit 10/05/2017 11:20a [facility] Internal Medicine Kristina Cheek, N.P. 46165 J20.9 - [place] Office Visit 09/14/2017 11:20a [facility] Internal Medicine Jian Venturarosas, [address]42 F33.[address] Shazia M25.562 H62.40 Office Visit 08/02/2017 2:00p [facility] Denise Shelton, 26512 M65.4 Neftaly Mccray Office Visit 07/12/2017 11:40a [facility] Internal Medicine Jian Almeida, 6[address]57 J06.[address] - [address] Shazia F33.0 F41.0 J45.909 Office Visit 05/03/2017 2:00p [facility] Internal Jian Alemida, 86948 Z00.00 Medicine - [address] Shazia G47.30 M25.532 Z12.31 J45.909 Z23 Office Visit 04/30/2017 10:00a [facility] Nereyda Munroebradly, 54044 M67.442 Of Ne[place]aly JOSEPH M65.4 Office Visit 04/13/2017 1:00p [facility] Internal Jian Almeida M.D. 15070 F33.0 Medicine - [address] F41.0 G43.009 Office Visit 03/29/2017 2:00p [facility] Medicine Jian Almeida M.D. 15115 I10 - [address] E78.2 K21.9 F33.0 E66.9 J45.20 M13.0 M54.5 G43.009 F41.0 Z23 Office Visit 03/07/2017 10:00a [facility] Denise Shelton, 68528 D48.1 Neftaly Mccray M67.432 Office Visit 01/19/2017 1:45p [facility] Of Rolly Fountain 27990 M76.822 Neftaly Mccray M76.62 Office Visit 01/15/2017 1:[address]p [facility] [place] [address] G44.219 Services Of [facility] Office Visit 12/26/2016 10:30a [facility] Of Rolly Fountain 41763 M76.822 Neftaly Mccray M76.62 Office Visit 11/24/2016 9:30a [facility] Rolly Fountain 97875 M76.822 Of Neftaly Mccray Office Visit 08/24/2016 2:30p [facility] Anibal Vargas Altagracia, 98136 M75.42 Of Neftaly AGUILAR M19.012 Office Visit 01/25/2016 2:20p [facility] Rolly Fountain 00632 S93.401A Of Neftaly Mccray Office Visit 08/13/2015 2:20p [facility] Rolly Fountain 44952 S93.402A Of CEbony Mccray Office Visit 06/16/2015 1:45p [place] [address] M79.1 Of C.M.AHayder Office Visit 04/20/2015 2:20p [facility] Alhaji Velásquez M.D. 84107 M79.1 Of C.M.A. Office Visit 03/04/2015 2:45p [facility] Alhaji Velásquez M.D. 30464 728.85 Of C.M.AHayder Office Visit 02/11/2015 1:30p [facility] Alhaji Velásquez M.D. 10656 728.85 Of C.M.AHayder Office Visit 05/05/2014 1:45p [facility] Alhaji Velásquez M.D. 83265 728.85 Of C.M.A. Office Visit 03/03/2014 2:45p [facility] Cinthia Corona 40374 719.41 Of Neftaly JOSEPH Office Visit 02/24/2014 10:45a [facility] Kyra 95793 718.03 Of Neftaly Medina M.D. Office Visit 01/20/2014 11:30a [facility] Kyra 22430 718.03 Of Neftaly Medina M.D. 728.6 727.43 Office Visit 12/04/2013 2:15p [facility] Of Alhaji Velásquez M.D. 40232 842.00 C.M.A. Office Visit 10/16/2013 9:45a [facility] Of JAKE Pemberton 82643 719.41 C.M.A. Office Visit 09/18/2013 2:45p [facility] Of Rolly Fountain, 50866 840.8 C.M.A. M.D. Office Visit 08/20/2013 3:00p [facility] Of Rolly Fountain, 61754 840.8 C.M.A. M.D. Office Visit 06/12/2013 2:00p [facility] Of Rolly Fountain 19480 840.8 C.M.A. M.D. Office Visit 05/26/2013 4:00p [facility] Of Rolly Fountain, 99862 726.72 C.M.A. M.D. Office Visit 04/11/2013 10:15a [facility] Of Rolly Fountain 74739 726.72 C.M.A. M.D. Office Visit 12/11/2012 1:00p [facility] Of Rolly Fountain 54237 727.69 C.M.A. M.D. 726.72 Office Visit 11/22/2012 9:15a [facility] Of Rolly Fountain 86270 727.69 C.M.A. M.D. 726.72 Office Visit 11/13/2012 2:00p [facility] Rolly Fountain M.D. 44939 726.72 Of C.M.A. Office Visit 05/02/2012 11:30a [facility] Alhaji Velásquez M.D. 01379 840.8 Of C.M.AHayder Office Visit 04/08/2012 1:30p [facility] Jerry Levine 63255 845.00 Of Yoni Forbes Office Visit 10/17/2011 11:45a [facility] Kyra 80614 719.42 Of Neftaly Medina M.D. Office Visit 09/12/2011 11:30a [facility] Alhaji Velásquez M.D. 69709 841.8 Of Neftaly 719.43 Plan of Care Future Appointment(s):11/28/2017 8:40 am - TELMA Conde at [facility] Internal Medicine - [address]12/21/2017 2:40 pm - TELMA Conde at [facility] Internal Medicine - [address]11/22/2017 - Denise Shelton M.D.M65.842 Other synovitis and tenosynovitis, left handNew Therapy:Physical TherapyFollow up:Follow up: As needed
[2017-12-11] MEDS ORDERED: HYDROcodone/ACETAMIN 5-325 MG* 1 TAB PO ONE (01:41)
[2017-12-11 02:23] VITALS: BP 150/92
--- NOTE | 2017-12-11 07:40 | RAD ---
INDICATION: Left ankle swelling and pain. TECHNIQUE: 3 views of the left ankle were obtained. FINDINGS: There is diffuse soft tissue swelling. The bones are in normal alignment. No fracture is seen. Joint spaces appear maintained. Incidental note is made of calcaneal spurs. IMPRESSION: SOFT TISSUE SWELLING, NO FRACTURE IS SEEN
--- NOTE | 2017-12-11 07:40 | RAD ---
HISTORY: Left foot swelling and pain COMPARISONS: August 13, 2015 VIEWS: 3, Frontal, lateral, and oblique views of the left foot FINDINGS: BONE DENSITY: Normal. BONES: There is minimally displaced fracture of the lateral base of the fifth metatarsal. Again noted is a circumscribed lucent lesion of the navicular bone. Additionally, there is nonaggressive appearing lucent lesion of the proximal phalanx of the fifth digit. There are calcaneal enthesophytes. JOINTS: There is no arthropathy. ALIGNMENT: There is no dislocation. SOFT TISSUES: Unremarkable. OTHER FINDINGS: None. IMPRESSION: MINIMALLY DISPLACED FRACTURE OF THE LATERAL ASPECT OF THE BASE OF THE FIFTH METATARSAL.
--- NOTE | 2017-12-12 07:38 | ED ---
Progress - Progress Note Progress Note: Final radiology report indicates 5th MT fx (non-displaced). Pt aware. SHe has f/ u w/ Dr. Fountain on 12/21 and will continue to RICE and use crutches until seen by Dr Fountain. Course/Dx - Course Course Of Treatment: given ibuprofen while in UC and one norco for pain. continue pain meds, RICE and follow up. aware of worsening signs and symptoms. no concern for other etiology such as gout or cellulitis as patient's exam was negative other than some limited ROM due to pain, better with passive and diffuse edema/tednerness. No bruising. Follow up ortho. Crutches. - Diagnoses Provider Diagnoses: Left ankle sprain, Ankle pain, left, Swelling of left foot Discharge - Sign-Out/Discharge Documenting (check all that apply): Post-Discharge Follow Up - Discharge Plan Condition: Good Disposition: HOME Prescriptions: HYDROcodone/ACETAMIN 5-325 MG* [[place] 5-325 TAB*] 1 tab PO Q6H PRN #5 tab MDD 2 PRN Reason: Pain Patient Education Materials: Ankle Sprain (ED), Arthralgia (ED) Referrals: Jian Almeida MD [Primary Care Provider] - Additional Instructions: make an appointment to follow up with ortho for further evaluation. refrain from weight bearing, use crutches and brace. rest, ice and elevate. ibuprofen/tylenol for pain and inflammation, as needed, with food. - Billing Disposition and Condition Condition: GOOD Disposition: Home
== END 2017-12-11 02:15 | disposition home or self-care (01) ==
LOC: ED 23:46
DX: S92.352A Displaced fracture of fifth metatarsal bone, left foot, initial encounter for closed fracture (principal); S93.402A Sprain of unspecified ligament of left ankle, initial encounter; X58.XXXA Exposure to other specified factors, initial encounter; Y92.9 Unspecified place or not applicable; M79.89 Other specified soft tissue disorders; F17.210 Nicotine dependence, cigarettes, uncomplicated; I10 Essential (primary) hypertension; E78.00 Pure hypercholesterolemia, unspecified; J45.909 Unspecified asthma, uncomplicated; Z88.0 Allergy status to penicillin
CPT/HCPCS: 99283

== ENCOUNTER 2018-05-06 07:03 | Day surgery (SDC) | payer OTHER ==
[~2018-05-06 07:03] MED LIST changes: -Dexamethasone IV* 4 MG/ML 1 ML (4 MG) IV SLOW PU ONE; +Sodium Citrate/Citric Acid* 15 ML UDC PO ONE
[2018-05-06] MEDS ORDERED: Famotidine IV* 10 MG/ML 2 ML (20 mg) ONE (07:04)
[2018-05-06] MEDS ORDERED: Sodium Citrate/Citric Acid* 15 ML UDC ONE (07:04)
[2018-05-06] MEDS ORDERED: Clindamycin 900 MG/D5W BAG(*) 900 MG/50 ML BAG IVPB ONE (07:04)
[2018-05-06] MEDS ORDERED: Morphine VIAL* 10 MG/ML 1 ML VIAL ONE (07:04)
[2018-05-06] MEDS ORDERED: Bupivacaine 0.5% SDV PF* 30ML VIAL ONE (07:09)
[2018-05-06] MEDS ORDERED: Midazolam* 1 MG/ML 2 ML VIAL (2 MG) ONE (07:23)
[2018-05-06] MEDS ORDERED: fentaNYL* 50 MCG/ML 2 ML VIAL (100 MCG VIAL) ONE ×3 (07:23→09:48)
[2018-05-06] MEDS ORDERED: Levalbuterol 0.63MG/3ML NEB* UNIT OF USE INH ONE (07:37)
[2018-05-06] MEDS ORDERED: KETAMINE HCL* 50 MG/ML 10 ML VIAL ONE (07:42)
[2018-05-06] MEDS ORDERED: Lidocaine 2% PF * 5 ML VIAL ONE ×2 (07:46→09:44)
[2018-05-06] MEDS ORDERED: Ketorolac INJ* 30 MG/ML 1 ML VIAL ONE (08:44)
[2018-05-06] MEDS ORDERED: Ondansetron INJ* 2 MG/ML VIAL ONE (08:44)
[2018-05-06] MEDS ORDERED: Naloxone* 0.4 MG/ML 1 ML VIAL IV PRN (09:06)
[2018-05-06] MEDS ORDERED: DiMENhydriNATE IV* 50 MG/ML VIAL IV PUSH PRN (09:06)
[2018-05-06] MEDS: fentaNYL* 50 MCG/ML 2 ML VIAL (100 MCG VIAL) IV PRN ×3 (09:08→09:48)
[2018-05-06] MEDS ORDERED: Succinylcholine* 20 MG/ML 10 ML VIAL ONE (09:18)
[2018-05-06] MEDS ORDERED: oxyCODONE TAB* 5 MG TAB ONE (09:36)
[2018-05-06 10:14] VITALS: BP 105/76
[2018-05-06] MEDS ORDERED: Propofol* 10 MG/ML 20 ML BTL IV PUSH ONE (10:24)
--- NOTE | 2018-05-06 15:38 | OP ---
DATE OF OPERATION: 05/06/18 - SDS DATE OF : [birth year] SURGEON: Rolly Fountain MD FOOD ASSEMBLER KITCHEN: Cinthia Corona PA-C ANESTHESIOLOGIST: ANESTHESIA: PRE-OP DIAGNOSIS: Left ankle tibial osteochondral defect. POST-OP DIAGNOSIS: Left ankle tibial osteochondral defect. OPERATIVE PROCEDURE: Arthroscopic debridement, synovectomy and debridement of osteochondral defect with subchondral drilling, left ankle arthroscopy. DESCRIPTION OF PROCEDURE: The patient was taken to the operating room where noninvasive ankle distractor was applied. We inflated the ankle with 15 cc of normal saline with an 18-gauge needle. We then made an anteromedial portal incising through the skin with a 15-blade and then bluntly through the capsule. We then located the anterolateral portal through the same technique. We were able to fully visualize the ankle joint. A 2.9 mm full radius shaver blade was used to debride the anterolateral synovium. We then were able to easily visualize the posteromedial tibial cartilage flap, which was probably 12 to 13 mm in medial lateral dimension. A small angled curette was used to debride the loose cartilage and then we used the small 45 degree microfracture awl to penetrate the subchondral bone in this area, probably five or six different penetrations were made and we took a photograph intraoperatively. We then used the shaver finally to clean the edges of the defect and any other loose cartilage or synovium. We then irrigated injecting some Marcaine into the joint , some suture for the anterior incisions and a soft tissue dressing. [id number]/CPS #: [id number] MTDD
== END 2018-05-06 10:53 | disposition home or self-care (01) ==
LOC: OR 07:03
PROVIDERS: ATTEND Orthopaedic Surgery
DX: M93.272 Osteochondritis dissecans, left ankle and joints of left foot (principal); E11.9 Type 2 diabetes mellitus without complications; Z79.84 Long term (current) use of oral hypoglycemic drugs; Z72.0 Tobacco use; J45.909 Unspecified asthma, uncomplicated; E78.5 Hyperlipidemia, unspecified; I10 Essential (primary) hypertension; G47.33 Obstructive sleep apnea (adult) (pediatric); Z68.37 Body mass index [BMI] 37.0-37.9, adult; F31.9 Bipolar disorder, unspecified
CPT/HCPCS: A9270-GY; J0330; J1885; J2250; J2270; J2405; J2704; J3010

== ENCOUNTER 2018-12-01 22:33 | Emergency (ER) | payer OTHER ==
--- OUTSIDE RECORDS SUMMARY | 2018-12-01 23:08 | XMS REPORT | Continuity of Care Document ---
:1970 External Reference #:[id number] Author Name Mady Putnam Care Team Providers Name Role Phone Ines Thomas DO Primary Care Physician Unavailable Payers Date Identification Numbers Payment Provider Subscriber Effective: Policy Number: [id number] [employer] Stephanie Olguin 2014 Medicaid PayID: [id number] [address] [address] [place] [address] Expires: 2014 Policy Number: [id number] Medicaid Stephanie Olguin PayID: [id number] [address] [place] [address] Advance Directives Description No Information Available Problems Active Problems Provider Date Articular cartilage disorder of wrist Kyra Medina M.D. Onset: Myalgia Alhaji Velásquez M.D. Onset: 04/20/2015 Episodic tension-type headache Yecenia Steiner MD Onset: 01/15/2017 Essential hypertension Jian Almeida M.D. Onset: 03/29/2017 Mixed hyperlipidemia Jian Almeida M.D. Onset: 03/29/2017 Gastroesophageal reflux disease Jian Almeida M.D. Onset: 03/29/2017 Mild recurrent major depression Jian Almeida M.D. Onset: 03/29/2017 Obesity Jian Almeida M.D. Onset: 03/29/2017 Mild intermittent asthma Jian Almeida M.D. Onset: 03/29/2017 Polyarthropathy Jian Almeida M.D. Onset: 03/29/2017 Low back pain Jian Almeida M.D. Onset: 03/29/2017 Migraine without aura, not refractory Jian Almeida M.D. Onset: 2016 Panic disorder without agoraphobia Jian Almeida M.D. Onset: 04/13/2017 Sleep apnea Jian Almeida M.D. Onset: 05/03/2017 Generalized anxiety disorder Aries Morgan MD Onset: 04/02/2018 Insomnia Aries Morgan MD Onset: 04/02/2018 Hypothyroidism Aries Morgan MD Onset: 04/02/2018 Hyperlipidemia Aries Morgan MD Onset: 04/02/2018 Vitamin D deficiency Aries Morgan MD Onset: 04/02/2018 Left conductive hearing loss Aries Morgan MD Onset: 04/02/2018 Dysthymic disorder Aries Morgan MD Onset: 04/02/2018 C/O - a back symptom Aries Morgan MD Onset: 04/04/2018 Type 2 diabetes mellitus Aries Morgan MD Onset: 04/04/2018 Osteochondritis dissecans Aries Morgan MD Onset: 05/02/2018 Inactive Problems Spasm Alhaji Velásquez M.D. Onset: 02/11/2015 Inactive: 11/05/2017 Left upper quadrant pain Alhaji Velásquez M.D. Onset: 04/20/2015 Inactive: 11/05/2017 Wrist joint pain Jian Almeida M.D. Onset: 05/03/2017 Inactive: 11/05/2017 Asthma without status asthmaticus Jian Almeida M.D. Onset: 07/12/2017 Inactive: 11/05/2017 Family History Date Family Member(s) Observation Comments General Heart Disease General Diabetes General Cancer Father Diabetes Father Colon Cancer Mother Diabetes Mother Parkinson's Disease Social History Type Date Description Comments Sex Unknown Lives With spouse Occupation Unemployed ETOH Use Denies alcohol use Tobacco Use Start: Unknown Heavy tobacco smoker (more than 10 cigarettes/day) Smoking Status Reviewed: 11/18/18 Heavy tobacco smoker (more than 10 cigarettes/day) Exercise Type/Frequency Exercises regularly Allergies, Adverse Reactions, Alerts Active Allergies Reaction Severity Comments Date Amoxicillin 08/20/2013 Medications Active Medications SIG Qnty Indications Ordering Date Provider Benzonatate take one every 6 30caps J06.9 Ines Thomas, 11/18/2018 100mg hours as needed DO Capsules for cough Guaifenesin-DM 5 ml as needed for 500ml J06.9 Ines Thomas, 11/18/2018 cough DO 100-10mg/5ML Syrup Mucinex take one twice a 14tabs J06.9 Ines Thomas, 11/18/2018 600mg Tablets day as needed for DO ER 12HR congestion 8 Hour Arthritis take 1 tab every 6 60tabs M54.5 Ines Thomas, 2018 Pain Reliever hours as needed DO 650mg for pain Tablets ER [facility] Lidocaine Apply up to twice 98gm M54.5 Aries Morgan MD 09/20/2018 Maximum Strength a day as needed 4% for pain Cream Eucerin apply to dry skin 1bottle Ines Thomas, 08/06/2018 Lotion twice a day as DO needed True Metrix Meter For blood glucose 1units Aries Morgan MD 04/05/2018 monitoring daily Device True Metrix Self for blood glucose 100units Ines Thomas, 04/05/2018 Monitoring Blood monitoring, DO Glucose Strips initially 3 times a day Strips Lancets for use with true 100units Ines Thomas, 04/05/2018 Misc metrix glucometer DO Aspercreme apply daily as 1units M62.830 Aries Morgan MD 04/04/2018 W/Lidocaine needed for pain 4% Cream Metformin HCL Take 1 Tablet By 60tabs E11.9 Aries Morgan MD 04/04/2018 500mg Mouth Twice A Day Tablets Nasal [place] 12 Hour 2 sprays each 30ml R05 Zsofia Panfilo, 10/24/2017 nostril 2x daily [employer] 0.05% Solution as needed for congestion D3 High Potency take one 90caps Aries Morgan MD 10/05/2017 capsule/tablet 1000Unit Capsules daily by mouth Albuterol Sulfate one treatment 90ml J45.20 Jian 03/29/2017 every 4 as needed Shazia Almeida 0.63mg/3ML Nebulizer Dulera 2 puff twice a day 26.4gm J45.20 Jose D Spivey 03/29/2017 200-5mcg/Act Shazia Mulligan,FACP Aerosol Ibuprofen Take 1 Tablet By 90tabs M13.0 Aries Morgan MD 03/29/2017 600mg Mouth Three Times Tablets A Day as Needed Mirtazapine Take 1 Tablet By Unknown 15mg Mouth Everyday AT Tablets Bedtime Klonopin 1 by mouth twice a Unknown 0.5mg day Tablets Gabapentin 1 capsule three 90caps Ines Senner, 300mg times a day DO Capsules Venlafaxine HCL three 75 mg tabs Unknown 75mg at night to equal Tablets 225mg . Indomethacin 1 by mouth twice a 30caps Ines Senner, 25mg day as needed. DO Capsules Loratadine take 1 tablet by 30tabs Ines Senner, 10mg mouth every day DO Tablets Lisinopril take 1 tablet by 30tabs Ines Senner, 20mg mouth every day DO Tablets Simvastatin take 1 tablet by 30tabs Ines Senner, 10mg mouth everyday at DO Tablets bedtime ALL Day Allergy 1 by mouth every Zsofia Panfilo, 10mg day [employer] Tablets Omeprazole take one capsule 30caps Ines Senner, 20mg by mouth every day DO Capsules DR Fluticasone 2 sprays daily in 16gm [facility] Propionate each nostril Shazia Faith 50mcg/Act Suspension Ventolin HFA inhale 2 puff(s) 8gm [place] every 4-6 hours by Shazia Almeida 108(90Base) mcg/Act inhalation route Aerosol as needed. History Medications Buspirone HCL take 1 tablet by 60taazeem Morgan MD 06/05/2018 - 10mg Tablets mouth every day in 09/10/2018 the morning and 1 tab at bedtime Buspirone HCL 2 tab by mouth 60tabs Aries Morgan MD 05/07/2018 - 5mg Tablets every day 06/05/2018 Freestyle Lancets For use with 100unumm Morgan MD 04/05/2018 - [facility] glucometer, up to 04/05/2018 3 times a day. Freestyle Lite Test 1 unit up to three 100units Aries Morgan MD 04/05/2018 - Strips times a day 04/05/2018 Freestyle Lite Test 1 unit up to eight 100units Aries Morgan MD 04/05/2018 - Strips times a day 04/05/2018 Freestyle Lite Test For use with 100units Aries Morgan MD 04/05/2018 - Strips glucometer. Test 3 04/05/2018 times a day initially. Freestyle Lite Lancets For use with 100units Aries Morgan MD 04/05/2018 - glucometer for 04/05/2018 blood glucose monitoring daily. Freestyle Lite Blood For blood glucose 1units Aries Morgan MD 04/05/2018 - Glucose Monitoring monitoring 04/05/2018 System Device Cyclobenzaprine HCL Take 5mg three 90tabs M62.8 Aries Morgan MD 04/04/2018 - 5mg times a day as 30 05/02/2018 Tablets needed. Glucocard X-Meter For glucose 1units E11.9 Aries Morgan MD 04/04/2018 - W/Device measurements 04/05/2018 Kit daily Glucose Meter Test for use daily with 100units E11.9 Aries Morgan MD 2017 - Strips Advanced glucometer 04/05/2018 Strips Lancets for use with your 60units E11.9 Aries Morgan MD 04/04/2018 - 33G Misc glucometer 04/05/2018 Quetiapine Fumarate Take 1 tablet each 30tabs G47.0 Aries Morgan MD 2017 - 100mg night 0 04/17/2018 Tablets Buspirone HCL take 1 tablet by 60tabs F41.1 Aries Morgan MD 03/13/2018 - 10mg Tablets mouth every day in 05/07/2018 the morning and 1 tab at bedtime Oxycodone HCL 1 tab by mouth 10tabs M65.8 Rolly 02/14/2018 - 5mg Tablets every 6 hours as 72 Shazia Fountain 06/19/2018 needed Clonazepam 1/2 tab once daily 15tabs Jian 12/17/2017 - 1mg Tablets Lorenzoika, 03/12/2018 Shazia Acetaminophen-Codeine #3 1 tab by 20tabs Denise 11/22/2017 - mouthevery 4-6 Shazia Shelton 12/19/2017 300-30mg Tablets hours as needed Meloxicam not taking- 09/11/18 30tabs Aries Morgan MD 11/22/2017 - 15mg Tablets --1 by mouth once 09/19/2018 a day Levofloxacin one by mouth daily 7tabs Jose D Spivey 11/05/2017 - 500mg Tablets for 7 days Ese, 11/12/2017 Shazia,FACP Medrol medrol dosepack as 1pak Jose D Spivey 11/05/2017 - 4mg Tablets directed [place], 11/13/2017 Shazia,FACP Cepacol Sore Throat & take 2 tab by 16units J02.9 Lydiaofiramana Whittaker, 2017 - Cough Extra Strength mouth three- four [employer] 03/12/2018 5-7.5mg times a day as Lozenges needed max dose 12 tabs/24 h Mucinex 1 by mouth twice a 14tabs R05 Jose Whittaker, 10/24/2017 - 600mg Tablets ER 12HR day [facility] 10/24/2017 Tussin Mucus + Chest 5 ml by mouth 118ml R05 Jose Whittaker, 10/24/2017 - Congestion every 4 hours as [facility] 03/12/2018 100mg/5ML Syrup needed Do not exceed=6 doses Doxycycline Monohydrate 1 cap bid 20tabs J20.9 [place] 10/16/2017 - 100mg [place], 10/24/2017 Tablets M.DHayder Azithromycin two tabs day one, 6tabs J20.9 Kristina Cheek, 10/05/2017 - 250mg Tablets one daily till N.P. 10/15/2017 gone Benzonatate one by mouth three 30caps J20.9 Kristina Cheek, 10/05/2017 - 100mg Capsules times daily as N.P. 10/15/2017 needed for cough Ketoconazole apply twice a day 120gm [place] 09/26/2017 - 2% Cream [facility], 03/12/2018 Shazia Nystatin-Triamcinolone apply to the ear 15gm H62.4 [place] 09/14/2017 - twice a day 0 [place], 09/26/2017 294149-9.1Unit/GM-% M.DHayder Cream Narka 1 tab by mouth q4 30tabs Denise 08/20/2017 - 5-325mg Tablets - 6 hours as Shazia Shelton 11/05/2017 needed pain Acetaminophen-Codeine #3 1 tab by 20tabs Denise 08/16/2017 - mouthevery 4-6 Shazia Shelton 11/05/2017 300-30mg Tablets hours as needed Tramadol HCL 1 tab by mouth 15tabs Denise 08/14/2017 - 50mg Tablets every 4-6 hours as Shazia Shelton 11/05/2017 needed pain Clonazepam once daily 30tabs F41.0 [place] 07/19/2017 - 0.5mg Tablets [facility], 12/17/2017 MHayderD. Mucinex 1 tab twice a day 60tabs J06.9 [place] 07/12/2017 - 600mg Tablets ER 12HR by mouth as needed [facility], 10/24/2017 M.DHayder Sertraline HCL 1 1/2 tab by mouth 45tabs F41.0 Deon Marc 07/12/2017 - 100mg Tablets every day Shazia Faith 03/12/2018 Prednisone 2 tab by mouth 5 10tabs J06.9 [place] 07/12/2017 - 20mg Tablets days [facility], 11/05/2017 M.D. Azithromycin 2 tab today and 6tabs J06.9 [place] 07/12/2017 - 250mg Tablets then 1tab daily [facility], 07/17/2017 M.D. Tramadol HCL three times a day 45tabs M25.5 [place] 05/03/2017 - 50mg Tablets as needed 32 [place], 11/05/2017 M.D. Sertraline HCL 1 by mouth every 30tabs F41.0 [place] 04/13/2017 - 100mg Tablets day [facility], 07/12/2017 M.D. Clonazepam 1 tab in in the 30tabs F41.0 [place] 04/13/2017 - 0.5mg Tablets morning as needed [place], 07/19/2017 Dispers M.D. Bupropion HCL ER (XL) Take 1 Tablet By 30tabs F33.0 [place] 03/29/2017 - 150mg Mouth Every Day In [place], 03/12/2018 Tablets ER 24HR The Morning With M.D. Food Quetiapine Fumarate take 2 tablets by 60tabs G47.0 Aries Morgan MD 2016 - 50mg mouth everyday at 0 04/02/2018 Tablets bedtime Alprazolam once a day 30tabs F41.0 [place] 03/29/2017 - 0.25mg Tablets [facility], 04/13/2017 M.D. Sertraline HCL 1 by mouth every 30tabs F41.0 [place] 03/29/2017 - 50mg Tablets day [facility], 04/13/2017 M.D. Metoprolol Tartrate 1 by mouth twice a 60tabs G43.0 Inse 03/29/2017 - 25mg day DO Martha 03/13/2018 Tablets Sumatriptan Succinate use at onset of 9tabs G43.0 Jose D Spivey 03/29/2017 - 100mg head ache,november 14 [place], 03/12/2018 Tablets repeat after 2h as Shazia,FACP needed Ketorolac Tromethamine take 1 by mouth 20tabs [place] 03/29/2017 - 10mg every 8 hours as [facility], 03/29/2017 Tablets needed for M.D. migraine. take with food. Melatonin ER 1 by mouth every [place] 03/29/2017 - 10mg Tablets ER night at bedtime [facility], 10/05/2017 MHayderD. Venlafaxine HCL 1 by mouth bid 90tabs [place] 03/29/2017 - 100mg Tablets [facility], 03/29/2017 MHayderDHayder Duloxetine HCL 1 by mouth every 30caps [place] 03/29/2017 - 20mg Caps DR day [facility], 03/29/2017 Part MJoleen Fluoxetine HCL 1 by mouth every 90caps [place] 03/29/2017 - 40mg Capsules day [facility], 03/29/2017 MHayderDHayder Ultram one tablet every 45tabs Denise 03/26/2017 - 50mg Tablets 12 hours as needed Shazia Shelton 03/29/2017 for pain orally Acetaminophen-Codeine #3 1 tab by mouth 20tabs Denise 03/07/2017 - every 4-6 hours as Shazia Shelton 03/29/2017 300-30mg Tablets needed for pain For post op pain Do not fill until 03/19/17 Indomethacin 1 by mouth two to 90caps G44.2 Yecenia Steiner 01/15/2017 - 25mg Capsules three times a day 19 03/29/2017 with food as needed for headache. Tramadol HCL two times a day as 42tabs S93.4 Rolly 11/24/2016 - 50mg Tablets needed Martir Fountain M.D. 04/01/2017 Naproxen 1 by mouth twice a 90tabs M75.4 Anibal Vargas 08/24/2016 - 500mg Tablets day as needed pain 2 MD Altagracia 06/21/2017 Tramadol HCL two times a day as 42tabs S93.4 Rolly 08/13/2015 - 50mg Tablets needed Martir Fountain M.D. 01/24/2016 Skelaxin 1 po tid prn 30tabs Kyra 04/20/2015 - 800mg Tablets Carol 01/24/2016 M.D. Methylprednisolone 1 tab by mouth 1tabs 728.8 Alhaji Velásquez 02/11/2015 - 32mg every day for 6 5 M.D. 01/24/2016 Tablets days, then start dose pack taper Cyclobenzaprine HCL one by mouth three 60tabs Alhaji Velásquez, 05/05/2014 - 10mg times a day as M.D. 01/24/2016 Tablets needed spasm Percocet 1-2 by mouth every 40tabs Alhaji Velásquez, 03/12/2014 - 5-325mg Tablets 12 hours as needed M.D. 01/24/2016 pain Medrol (Param) take as directed 1pack Alhaji Velásquez, 03/03/2014 - 4mg Tablets by pack M.D. 01/24/2016 Oxycodone HCL 1 tab po q 6 hrs 30caps Alhaji Velásquez, 03/03/2014 - 5mg Capsules prn pain M.D. 03/12/2014 Acetaminophen 1 tab q6hrs prn 60tabs Kyra 02/24/2014 - 500mg Tablets pain Carol, 04/19/2015 M.D. Ibuprofen 1 by mouth three 60tabs Alhaji Velásquez, 02/24/2014 - 600mg Tablets times a day as M.D. 01/17/2016 needed Tramadol HCL 1-2 tablets three 30tabs Alhaji Velásquez, 12/04/2013 - 50mg Tablets times a day as M.DHayder 05/12/2014 needed pain Diphen 1 by mouth at 2tabs Alhaji Velásquez, 10/20/2013 - 25mg Tablets bedtime as needed M.DHayder 10/07/2013 for sleep Lyrica 1 by mouth twice a 60caps Alhaji Velásquez 10/16/2013 - 25mg Capsules day as needed M.DHayder 04/19/2015 Tramadol HCL 1-2 tablets po qhs 60tabs Alhaji Velásquez 10/16/2013 - 50mg Tablets M.DHayder 05/12/2014 Oxycodone HCL 1 tab po bid prn 40caps Rolly 08/20/2013 - 5mg Capsules pain Shazia Fountain 10/15/2013 Tramadol HCL bid prn pain 60tabs Rolly 05/26/2013 - 50mg Tablets Shazia Fountain 08/20/2013 Narka 1 po bid 40tabs Rolly 04/11/2013 - 5-325mg Tablets Shazia Fountain 08/20/2013 Oxycodone HCL 1 po bid prn pain 30tabs Rolly 01/15/2013 - 5mg Tablets Shazia Fountain 08/20/2013 Narka take 1 tab po bid 24tabs Rolly 01/02/2013 - 5-325mg Tablets prn pain Shazia Fountain 08/20/2013 Hydrocodone 1 tablet by mouth 75tabs Rolly 12/11/2012 - Bitartrate/Acetaminophen every 6 hours as Shazia Fountain 08/20/2013 needed 5-300mg Tablets Tramadol HCL tid prn 90tabs Rolly 05/02/2012 - 50mg Tablets Shazia Fountain 08/20/2013 Flexeril 1 po tid prn 90tabs Alhaji Velásquez 09/12/2011 - 10mg Tablets Shazia 08/20/2013 Mirtazapine 1 tab by mouth at Unknown - 15mg Tablets bedtime 09/09/2018 Ketorolac Tromethamine Unknown - 10mg 01/15/2017 Tablets Cyclobenzaprine HCL Take 1 Tablet By Unknown - 10mg Mouth 3 Times A 01/15/2017 Tablets Day For 30 Days Buspirone HCL Take 1 Tablet By Unknown - 10mg Tablets Mouth Twice A Day 03/29/2017 Fluoxetine HCL Take One Capsule Unknown - 20mg Capsules By Mouth Every Day 03/29/2017 Ipratropium [place] spray 2 sprays 15ml Jian - 0.06% twice a day Juan Pablo, 10/24/2017 Solution nasally M.DHayder Xanax As directed Unknown - 0.25 04/13/2017 Quetiapine Fumarate Unknown - Tablets 03/29/2017 Pristiq Maria Luz Cordova, - 100mg Tablets ER 24HR 01/24/2016 Cetirizine HCL Maddison-Hektor - 10mg Tablets , SHERRY Edmond 01/24/2016 Oxycodone HCL Gus Loraph, - 5mg Tablets DO 01/15/2017 Clonazepam Unknown - 01/24/2016 Diphenhydramine HCL One tablet by Unknown - 25mg mouth at bedtime 01/24/2016 Capsules daily Zestril 1 by mouth every Unknown - 20mg Tablets day 01/24/2016 Amitriptyline HCL one tab at bedtime Unknown - 100mg daily 01/24/2016 Xanax One tab by mouth Unknown - 0.5mg qid as needed 02/23/2014 Medications Administered in Office Medication SIG Qnty Indications Ordering Provider Date Depomedrol 40MG Denise Shelton M.D. 04/19/2017 Injection Depomedrol 40MG Anibal Frias MD 08/24/2016 Injection Immunizations CPT Code Status Date Vaccine Reaction Lot # [id number] Given 05/03/2017 Pneumonia Vaccine no immediate reaction, [id number] pt tolerated well 19295 Given 03/29/2017 Influenza Virus Vaccine, no immediate reaction, [id number] Quadrivalent, Split, pt tolerated well Preservative Free Vital Signs Date Vital Result Comment 11/18/2018 3:04pm Weight 244.00 lb Heart Rate 68 /min BP Systolic 156 mmHg BP Diastolic 88 mmHg Respiratory Rate 18 /min Body Temperature 98.9 F O2 % BldC Oximetry 99 % 09/20/2018 3:28pm Weight 239.00 lb Heart Rate 84 /min BP Systolic 130 mmHg BP Diastolic 80 mmHg Respiratory Rate 16 /min Body Temperature 98.1 F Pain Level 9 back O2 % BldC Oximetry 96 % 09/19/2018 8:43am Height 67 inches 5'7" Weight 238.00 lb Heart Rate 87 /min BP Systolic 130 mmHg BP Diastolic 68 mmHg Respiratory Rate 18 /min Body Temperature 97.3 F Pain Level 10 BMI (Body Mass Index) 37.3 kg/m2 09/11/2018 3:19pm Weight 243.00 lb Heart Rate 74 /min BP Systolic 130 mmHg BP Diastolic 88 mmHg Respiratory Rate 18 /min Body Temperature 98.4 F Pain Level 5 O2 % BldC Oximetry 94 % 08/06/2018 3:06pm Weight 248.00 lb Heart Rate 80 /min BP Systolic 140 mmHg BP Diastolic 90 mmHg BP Systolic Sitting 140 mmHg BP Diastolic Sitting 94 mmHg Respiratory Rate 16 /min Body Temperature 98.3 F Pain Level 4 back of heel O2 % BldC Oximetry 98 % 06/20/2018 11:33am Height 67 inches 5'7" Weight 257.00 lb Heart Rate 80 /min BP Systolic 138 mmHg BP Diastolic 90 mmHg Body Temperature 97.4 F Pain Level 8 BMI (Body Mass Index) 40.2 kg/m2 05/16/2018 10:57am Height 67 inches 5'7" Heart Rate 100 /min BP Systolic 142 mmHg BP Diastolic 88 mmHg Body Temperature 97.6 F Pain Level 8 05/02/2018 3:09pm Weight 254.00 lb Heart Rate 66 /min BP Systolic 140 mmHg Lue BP Diastolic 90 mmHg Lue BP Systolic Sitting 138 mmHg Rue BP Diastolic Sitting 88 mmHg Rue Respiratory Rate 18 /min Body Temperature 99.3 F Pain Level 7 O2 % BldC Oximetry 97 % 04/23/2018 11:17am Height 67 inches 5'7" Weight 253.00 lb Heart Rate 72 /min BP Systolic 138 mmHg BP Diastolic 82 mmHg Body Temperature 98.1 F Pain Level 6 BMI (Body Mass Index) 39.6 kg/m2 04/09/2018 12:05pm Height 67 inches 5'7" Weight 255.00 lb Heart Rate 84 /min Respiratory Rate 18 /min Body Temperature 96.8 F Pain Level 5 BMI (Body Mass Index) 39.9 kg/m2 04/04/2018 2:32pm Weight 255.00 lb Heart Rate 72 /min BP Systolic 132 mmHg Lue BP Diastolic 80 mmHg Lue Respiratory Rate 18 /min Body Temperature 97.3 F Pain Level 8 O2 % BldC Oximetry 98 % 04/02/2018 1:50pm Weight 255.00 lb Heart Rate 62 /min BP Systolic 148 mmHg BP Diastolic 92 mmHg BP Systolic Sitting 144 mmHg BP Diastolic Sitting 88 mmHg Respiratory Rate 16 /min Pain Level 8 foot and wrist 03/19/2018 10:33am Height 67 inches 5'7" Heart Rate 60 /min BP Systolic 140 mmHg BP Diastolic 88 mmHg Body Temperature 98.5 F Pain Level 9 03/13/2018 3:26pm Height 67 inches 5'7" Weight 257.00 lb Heart Rate 56 /min BP Systolic 136 mmHg BP Diastolic 81 mmHg Respiratory Rate 18 /min Body Temperature 97.5 F Pain Level 8 L ankle O2 % BldC Oximetry 97 % BMI (Body Mass Index) 40.2 kg/m2 02/14/2018 8:47am Height 67 inches 5'7" Weight 230.00 lb Heart Rate 76 /min BP Systolic 142 mmHg BP Diastolic 80 mmHg Respiratory Rate 12 /min Pain Level 7 BMI (Body Mass Index) 36.0 kg/m2 01/17/2018 11:29am Height 67 inches 5'7" Heart Rate 76 /min BP Systolic Sitting 116 mmHg BP Diastolic Sitting 84 mmHg Respiratory Rate 16 /min Pain Level 6 01/16/2018 2:30pm Height 67 inches 5'7" Heart Rate 74 /min BP Systolic 130 mmHg BP Diastolic 80 mmHg Respiratory Rate 18 /min Body Temperature 98.0 F Pain Level 6 12/20/2017 10:52am Height 67 inches 5'7" Weight 260.00 lb BP Systolic 128 mmHg BP Diastolic 79 mmHg Respiratory Rate 16 /min Pain Level 8 BMI (Body Mass Index) 40.7 kg/m2 11/22/2017 2:34pm Heart Rate 67 /min BP Systolic 122 mmHg BP Diastolic 76 mmHg Respiratory Rate 16 /min Body Temperature 98.0 F Pain Level 6 11/05/2017 1:02pm Weight 261.00 lb Heart Rate 77 /min BP Systolic Sitting 120 mmHg BP Diastolic Sitting 82 mmHg Body Temperature 97.7 F O2 % BldC Oximetry 96 % 10/24/2017 3:18pm Weight 255.25 lb pt declined Heart Rate 73 /min BP Systolic Sitting 124 mmHg BP Diastolic Sitting 76 mmHg Body Temperature 97.3 F O2 % BldC Oximetry 98 % 10/16/2017 3:40pm Weight 257.50 lb Heart Rate 80 /min BP Systolic 124 mmHg BP Diastolic 68 mmHg Body Temperature 97.9 F O2 % BldC Oximetry 96 % 10/05/2017 11:42am Heart Rate 67 /min BP Systolic 144 mmHg BP Diastolic 84 mmHg Body Temperature 98.2 F O2 % BldC Oximetry 94 % 09/14/2017 11:22am Height 67 inches 5'7" Weight 257.50 lb Heart Rate 64 /min BP Systolic Sitting 120 mmHg BP Diastolic Sitting 80 mmHg O2 % BldC Oximetry 97 % BMI (Body Mass Index) 40.3 kg/m2 08/23/2017 2:05pm Height 67 inches 5'7" Weight 253.00 lb Heart Rate 72 /min BP Systolic 119 mmHg BP Diastolic 76 mmHg Body Temperature 96.6 F BMI (Body Mass Index) 39.6 kg/m2 08/02/2017 2:01pm Height 67 inches 5'7" Weight 253.00 lb Heart Rate 79 /min BP Systolic 102 mmHg BP Diastolic 64 mmHg Respiratory Rate 16 /min Body Temperature 97.5 F Pain Level 6 BMI (Body Mass Index) 39.6 kg/m2 07/12/2017 11:35am Height 67 inches 5'7" Weight 253.25 lb Heart Rate 67 /min BP Systolic Sitting 122 mmHg BP Diastolic Sitting 70 mmHg Body Temperature 97.2 F O2 % BldC Oximetry 92 % BMI (Body Mass Index) 39.7 kg/m2 05/03/2017 2:02pm Height 67 inches 5'7" Weight 243.19 lb Heart Rate 74 /min BP Systolic 116 mmHg BP Diastolic 68 mmHg Body Temperature 97.6 F O2 % BldC Oximetry 94 % BMI (Body Mass Index) 38.1 kg/m2 04/30/2017 9:36am Height 67 inches 5'7" Weight 250.00 lb Respiratory Rate 16 /min Body Temperature 97.6 F Pain Level 6 BMI (Body Mass Index) 39.2 kg/m2 04/19/2017 1:39pm Height 67 inches 5'7" Weight 250.00 lb Heart Rate 68 /min Respiratory Rate 20 /min Body Temperature 96.2 F Pain Level 5 BMI (Body Mass Index) 39.2 kg/m2 04/13/2017 1:02pm Weight 250.00 lb Heart Rate 70 /min BP Systolic Sitting 110 mmHg BP Diastolic Sitting 80 mmHg Body Temperature 97.2 F O2 % BldC Oximetry 97 % 03/29/2017 3:35pm Height 67 inches 5'7" Weight 242.00 lb Heart Rate 88 /min BP Systolic 136 mmHg BP Diastolic 88 mmHg Respiratory Rate 20 /min Body Temperature 96.3 F Pain Level 4 BMI (Body Mass Index) 37.9 kg/m2 03/29/2017 1:52pm Height 67 inches 5'7" Weight 242.25 lb Heart Rate 85 /min BP Systolic 132 mmHg BP Diastolic 84 mmHg Body Temperature 97.6 F O2 % BldC Oximetry 96 % BMI (Body Mass Index) 37.9 kg/m2 03/07/2017 10:09am Height 67 inches 5'7" Weight 240.00 lb Heart Rate 84 /min BP Systolic 120 mmHg BP Diastolic 82 mmHg Respiratory Rate 20 /min Body Temperature 97.7 F Pain Level 5 BMI (Body Mass Index) 37.6 kg/m2 01/19/2017 1:47pm Height 67 inches 5'7" Weight 240.00 lb BP Systolic 139 mmHg BP Diastolic 84 mmHg Respiratory Rate 14 /min Pain Level 4 BMI (Body Mass Index) 37.6 kg/m2 01/15/2017 1:06pm Height 67 inches 5'7" Weight 240.00 lb Heart Rate 68 /min BP Systolic Sitting 126 mmHg BP Diastolic Sitting 88 mmHg Respiratory Rate 14 /min BMI (Body Mass Index) 37.6 kg/m2 12/26/2016 11:00am Height 67 inches 5'7" Weight 240.00 lb BP Systolic 119 mmHg BP Diastolic 85 mmHg Respiratory Rate 20 /min Body Temperature 97.7 F Pain Level 5 BMI (Body Mass Index) 37.6 kg/m2 11/24/2016 9:20am Height 67 inches 5'7" Weight 240.00 lb BP Systolic 119 mmHg BP Diastolic 74 mmHg Body Temperature 97.2 F Pain Level 5 BMI (Body Mass Index) 37.6 kg/m2 08/24/2016 2:53pm Height 67 inches 5'7" Weight 240.00 lb Heart Rate 81 /min BP Systolic 139 mmHg BP Diastolic 88 mmHg Pain Level 6 BMI (Body Mass Index) 37.6 kg/m2 08/09/2016 10:09am Heart Rate 60 /min Respiratory Rate 18 /min Body Temperature 97.2 F 07/25/2016 2:20pm Height 67 inches 5'7" Weight 240.00 lb Heart Rate 78 /min BP Systolic Sitting 118 mmHg BP Diastolic Sitting 86 mmHg Respiratory Rate 16 /min Body Temperature 98.7 F BMI (Body Mass Index) 37.6 kg/m2 01/25/2016 2:26pm Height 67 inches 5'7" Weight 220.00 lb Heart Rate 60 /min Respiratory Rate 18 /min Pain Level 6 BMI (Body Mass Index) 34.5 kg/m2 08/13/2015 2:19pm Height 67 inches 5'7" Weight 230.00 lb Heart Rate 76 /min BP Systolic 118 mmHg BP Diastolic 79 mmHg BMI (Body Mass Index) 36.0 kg/m2 06/16/2015 1:58pm Height 67 inches 5'7" Weight 244.00 lb Pain Level 6 at night BMI (Body Mass Index) 38.2 kg/m2 04/20/2015 2:22pm Height 67 inches 5'7" Weight 244.00 lb Pain Level 5 BMI (Body Mass Index) 38.2 kg/m2 03/04/2015 2:51pm Height 67 inches 5'7" Weight 244.00 lb Pain Level 4 BMI (Body Mass Index) 38.2 kg/m2 02/11/2015 1:38pm Height 67 inches 5'7" Weight 244.00 lb Pain Level 5 BMI (Body Mass Index) 38.2 kg/m2 05/05/2014 1:59pm Height 67 inches 5'7" Heart Rate 83 /min BP Systolic 119 mmHg BP Diastolic 83 mmHg 03/24/2014 1:22pm Height 67 inches 5'7" Weight 232.00 lb Pain Level 10 BMI (Body Mass Index) 36.3 kg/m2 03/03/2014 2:44pm Height 67 inches 5'7" Weight 232.00 lb Heart Rate 104 /min BP Systolic 137 mmHg BP Diastolic 93 mmHg BMI (Body Mass Index) 36.3 kg/m2 02/24/2014 11:47am Height 67 inches 5'7" Weight 232.00 lb Heart Rate 70 /min BMI (Body Mass Index) 36.3 kg/m2 01/20/2014 11:44am Height 67 inches 5'7" Weight 235.00 lb Heart Rate 67 /min BP Systolic 129 mmHg BP Diastolic 92 mmHg BMI (Body Mass Index) 36.8 kg/m2 12/04/2013 2:12pm Height 67 inches 5'7" Weight 235.00 lb Heart Rate 86 /min BP Systolic 130 mmHg BP Diastolic 100 mmHg Pain Level 4 BMI (Body Mass Index) 36.8 kg/m2 10/16/2013 10:24am Height 67 inches 5'7" Weight 240.00 lb Heart Rate 85 /min BP Systolic 120 mmHg BP Diastolic 90 mmHg BMI (Body Mass Index) 37.6 kg/m2 09/18/2013 2:59pm Height 67 inches 5'7" Weight 200.00 lb Heart Rate 88 /min BMI (Body Mass Index) 31.3 kg/m2 08/20/2013 2:51pm Height 67 inches 5'7" Weight 200.00 lb Heart Rate 86 /min BP Systolic 183 mmHg BP Diastolic 110 mmHg BMI (Body Mass Index) 31.3 kg/m2 Results Test Date Facility Test Result H/L Range Note Laboratory test 05/06/2018 [facility] Point of Care 98 mg/dL N 70-100 [address] [place] [address] [phone] Laboratory test 05/06/2018 [facility] Point of Care 84 mg/dL N 70-100 [address] [place] [address] [phone] Laboratory test 04/02/2018 [facility] TSH (Thyroid 2.18 mcIU/mL N 0.34-5.[address] Stim Horm) [place] [address] [phone] Free T4 (Free Thyroxine) 0.61 ng/dL N 0.61-1.12 T3 Total 100 ng/dL N 87-178 Hemoglobin A1c (Glyco HGB) 6.5 % High 4.0-5.6 3 Comp Metabolic Panel 11/08/2017 [facility] Sodium 138 mmol/L Low 139-[address] [place] [address] [phone] Potassium 3.5 mmol/L N 3.5-5.0 Chloride 104 mmol/L N 101-111 Co2 Carbon Dioxide 27 mmol/L N 22-32 Anion Gap 7 mmol/L N 2-11 Glucose 110 mg/dL High 70-100 Blood Urea Nitrogen 9 mg/dL N 6-24 Creatinine 0.81 mg/dL N 0.51-0.95 BUN/Creatinine Ratio 11.1 N 8-20 Calcium 9.3 mg/dL N 8.6-10.3 Total Protein 6.7 g/dL N 6.4-8.9 Albumin 4.1 g/dL N 3.2-5.2 Globulin 2.6 g/dL N 2-4 Albumin/Globulin Ratio 1.6 N 1-3 Total Bilirubin 0.30 mg/dL N 0.2-1.0 Alkaline Phosphatase 55 U/L N 34-104 Alt 17 U/L N 7-52 Ast 15 U/L N 13-39 Egfr Non- 76.1 >60 Egfr 97.9 >60 4 Lipid Profile 11/08/2017 [facility] Triglycerides 230 mg/dL 5 (Trig/Chol/HDL) [address] [place], [place] [id number] [phone] Cholesterol 258 mg/dL 6 HDL Cholesterol 36.7 mg/dL 7 LDL Cholesterol 175 mg/dL 8 Laboratory test 11/08/2017 [facility] TSH (Thyroid 6.12 High 0.34-5.[address] Stim Horm) mcIU/mL [place], [place] [id number] [phone] Cortisol 8.13 g/dL 9 CBC Auto 11/08/2017 [facility] White Blood 11.6 10^3/uL High 3.5-10.[address] [place] [address] [phone] Red Blood Count 4.88 10^6/uL N 4.0-5.4 Hemoglobin 15.1 g/dL N 12.0-16.0 Hematocrit 46 % N 35-47 Mean Corpuscular Volume 93 fL N 80-97 Mean Corpuscular Hemoglobin 31 pg N 27-31 Mean Corpuscular HGB Conc 33 g/dL N 31-36 Red Cell Distribution Width 15 % N 10.5-15 Platelet Count 294 10^3/uL N 150-450 Mean Platelet Volume 7.0 um3 Low 7.4-10.4 Abs Neutrophils 6.0 10^3/uL N 1.5-7.7 Abs Lymphocytes 4.5 10^3/uL N 1.0-4.8 Abs Monocytes 0.7 10^3/uL N 0-0.8 Abs Eosinophils 0.2 10^3/uL N 0-0.6 Abs Basophils 0.1 10^3/uL N 0-0.2 Abs Nucleated RBC 0 10^3/uL Granulocyte % 51.7 % N 38-83 Lymphocyte % 39.2 % N 25-47 Monocyte % 6.5 % N 0-7 Eosinophil % 2.1 % N 0-6 Basophil % 0.5 % N 0-2 Nucleated Red Blood Cells % 0 Laboratory test 09/25/2017 [facility] Rapid Strep Negative Negative [address] [place] [address] [phone] Rapid Influenza 09/25/2017 [facility] Influenza A NEGATIVE Negative 11 A & B Molecular [address] [place] [address] [phone] Influenza B Molecular NEGATIVE Negative Laboratory test 09/25/2017 [facility] Rapid Strep A SEE RESULT [address] [place] [address] [phone] Rapid Influenza A B Antigen SEE RESULT BELOW 13 CBC Auto Diff 09/25/2017 [facility] White Blood 10.7 10^3/uL N 3.5-10.[address] [place] [address] [phone] Red Blood Count 4.69 10^6/uL N 4.0-5.4 Hemoglobin 15.1 g/dL N 12.0-16.0 Hematocrit 43 % N 35-47 Mean Corpuscular Volume 92 fL N 80-97 Mean Corpuscular Hemoglobin 32 pg High 27-31 Mean Corpuscular HGB Conc 35 g/dL N 31-36 Red Cell Distribution Width 15 % N 10.5-15 Platelet Count 288 10^3/uL N 150-450 Mean Platelet Volume 7 um3 Low 7.4-10.4 Abs Neutrophils 6.1 10^3/uL N 1.5-7.7 Abs Lymphocytes 3.5 10^3/uL N 1.0-4.8 Abs Monocytes 0.8 10^3/uL N 0-0.8 Abs Eosinophils 0.3 10^3/uL N 0-0.6 Abs Basophils 0.1 10^3/uL N 0-0.2 Abs Nucleated RBC 0 10^3/uL Granulocyte % 56.5 % N 38-83 Lymphocyte % 32.7 % N 25-47 Monocyte % 7.6 % High 0-7 Eosinophil % 2.6 % N 0-6 Basophil % 0.6 % N 0-2 Nucleated Red Blood Cells % 0.1 Comp Metabolic Panel 09/25/2017 [facility] Sodium 134 mmol/L N 133-[address] [place] [address] [phone] Potassium 3.7 mmol/L N 3.5-5.0 Chloride 101 mmol/L N 101-111 Co2 Carbon Dioxide 27 mmol/L N 22-32 Anion Gap 6 mmol/L N 2-11 Glucose 104 mg/dL High 70-100 Blood Urea Nitrogen 8 mg/dL N 6-24 Creatinine 0.70 mg/dL N 0.51-0.95 BUN/Creatinine Ratio 11.4 N 8-20 Calcium 9.3 mg/dL N 8.6-10.3 Total Protein 7.0 g/dL N 6.4-8.9 Albumin 4.0 g/dL N 3.2-5.2 Globulin 3.0 g/dL N 2-4 Albumin/Globulin Ratio 1.3 N 1-3 Total Bilirubin 0.20 mg/dL N 0.2-1.0 Alkaline Phosphatase 62 U/L N 34-104 Alt 15 U/L N 7-52 Ast 13 U/L N 13-39 Egfr Non- 90.1 >60 Egfr 115.9 >60 14 Laboratory test 03/20/2017 [facility] Surgical SEE RESULT 15, [address] [place] [address] [phone] Surgical 03/12/2014 [facility] S RUN DATE: [address] 03/13/ <[place] [address] NOTE> [phone] Laboratory test 02/27/2013 [facility] Troponin I 0 ng/mL 0- 0.0 [address] [place] [address] [phone] Basic Metabolic 02/27/2013 [facility] Sodium 138 mmol/L 133- [address] [place] [address] [phone] Potassium 3.7 mmol/L 3.5-5.0 Chloride 107 mmol/L 101-111 Co2 Carbon Dioxide 26.0 mmol/L 22-32 Anion Gap 5.0 mmol/L 2-11 Glucose 94 mg/dL 70-100 Blood Urea Nitrogen 8 mg/dL 6-24 Creatinine 0.60 mg/dL 0.50-1.40 BUN/Creatinine Ratio 13.3 8-20 Calcium 9.0 mg/dL 8.1-9.9 Egfr Non- 110.2 >60 Egfr 141.7 >60 19 Urinalysis W/Microscopic 01/03/2013 [facility] Urine Color Brianna [address] [place] [address] [phone] Urine Appearance Clear Urine Specific Taft 1.023 1.010-1.030 Urine Esterase Negative Negative Urine Nitrate Negative Negative Urine Urobilinogen Negative E.U./dL Negative Urine Protein Negative mg/dL Negative Urine pH 5.0 5-9 Urine Blood 1+ Abnormal Negative Urine Ketones Negative mg/dL Negative Urine Bilirubin 1+ Abnormal Negative Urine Glucose Negative mg/dL Negative Urine WBC 1+ (<10 /hpf) None Seen Urine RBC None Seen None Seen Urine Mucus Present /lpf Absent Bacteria Urine 1+ None Seen Ua Comments (SEE NOTE) 20 CBC Auto Diff 01/03/2013 [facility] White Blood 8.3 10^3/uL 4.8-10.[address] [place] [address] [phone] Red Blood Count 5.03 10^6/uL 4.0-5.4 Hemoglobin [...] 0-2 Nucleated Red Blood Cells % 0.1 Inr/Protime 01/03/2013 [facility] Inr 0.88 0.87-0.[address] [place] [address] [phone] Comp Metabolic Panel 01/03/2013 [facility] Sodium 137 mmol/L 133-145 [address] [place] [address] [phone] Potassium 4.4 mmol/L 3.5-5.0 Chloride 108 mmol/L [...] Egfr Non- 92.2 >60 Egfr 118.6 >60 21 1 Scalp Treatment Operator: [id number] 2 Scalp Treatment Operator: [id number] 3 Therapeutic target for the treatment of diabetes mellitus patients is <7% HBA1C, and in selective patients <6.0%. Please refer to [place] [employer] diabetic care guidelines for further information. 4 Because ethnic data is not always readily [...] 15-29 5 Kidney failure <15 (or dialysis) 5 Desirable: <150 Borderline High: 150-199 High: 200-499 Very High: >500 6 Desirable: <200 Borderline High: 200-239 High: >239 7 Low: <40 Desirable: 40-60 High: >60 8 Desirable: <100 Near Optimal: 100-129 Borderline High: 130-159 High: 160-189 Very High: >189 9 AM 8.7-22.4 PM <10 10 Scalp Treatment Operator: [id number] 11 Scalp Treatment Operator: [id number] 12 SEE RESULT BELOW Name: STEPHANIE OLGUIN : [address]: Karan Conteh MD Acct: [id number] Unit: [id number] AGE: 47 Location: ED Re09/25/17 SEX: F Status: REG ER SPEC: [id number] ZOË: 09/25/17-[address] [facility] [address]: Karan Conteh MD REQ: [id number] RECD: 09/25/17 STATUS: COMP [facility] DR: Jian Almeida MD _ SOURCE: THROAT SPDESC: ORDERED: Strep A Request Procedure Result Reported Site Rapid Strep A Request Final 09/25/17- 410 ML Specimen received for Rapid Strep A Molecular testing * ML - Main Lab . END OF REPORT DEPARTMENT OF PATHOLOGY, [address] [place] [address] Selvin Tong M.D. Director [facility] # [id number] 13 SEE RESULT BELOW Name: STEPHANIE OLGUIN : [address]: Karan Conteh MD Acct: [id number] Unit: [id number] AGE: 47 Location: ED Re09/25/17 SEX: F Status: REG ER SPEC: [id number] ZOË: 09/25/[address] [facility] [address]: Karan Conteh MD REQ: [id number] RECD: 09/25/17 STATUS: ERIC NDIAYE DR: Jian Almeida MD _ SOURCE: NASAL SPDESC: ORDERED: Flu A B Request Procedure Result Reported Site Rapid Influenza A B Request Final 09/25/17410 ML Specimen received for Influenza A/B Molecular testing * ML - Main Lab . END OF REPORT DEPARTMENT OF PATHOLOGY, [address] [place] [address] Selvin Tong M.D. Director [facility] # [id number] 14 Because ethnic data is not always readily [...] 15-29 5 Kidney failure <15 (or dialysis) 15 [id number] 16 SEE RESULT BELOW Name: STEPHANIE OLGUIN : [address]: Denise Shelton MD Acct: [id number] Unit: [id number] AGE: 46 Location: [facility] Re03/20/17 SEX: F Status: REG [facility] SPEC: [id number] ZOË: 03/20/[address] [facility] [address]: Denise Shelton MD REQ: [id number] RECD: 03/20/17 STATUS: SOUT _ ORDERED: LEVEL 3 COMMENTS: [id number] FINAL DIAGNOSIS Soft tissue, left wrist, excision: [...] performed at Main Lab DEPARTMENT OF PATHOLOGY, [facility] Image Socket [place] [address] Selvin Tong M.D. Director CLIA # [id number] RUN DATE: 03/13/14 [facility] LAB LIVE PAGE 1 RUN TIME: [address] [facility] [address] [place], [place] [address] Specimen Inquiry Name: STEPHANIE OLGUIN : [address]: Kyra Medina Acct: [id number] Unit: [id number] AGE: 43 Location: [facility] Re03/12/14 SEX: F Status: REG [facility] SPEC: [id number] ZOË: 03/12/14- SUBM DR: Kyra Medina MD REQ: [id number] RECD: 03/12/14-1199 STATUS: SOUT _ ORDERED: LEVEL III FINAL DIAGNOSIS Wrist, right, arthroscopic shavings: Benign cartilaginous tissue and synovial tissue fragments. 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 GROSS DESCRIPTION The specimen is received in formalin labeled Stephanie Olguin, Right Wrist Shavings and consists of a 1.5 x 0.9 x 0.3 cm. aggregate of yellow and white tissue fragments. Agriculture Scientist sections, one cassette. Signed (signature on file) Pamela Ayala MD 11/19 1732 END OF REPORT * ML=Testing performed at Main Lab DEPARTMENT OF PATHOLOGY, [address] [place] [address] Selvin Tong M.D. Director [facility] # [id number] 18 Reference Range and Interpretation: TnI (ng/mL) Interpretation Less Than 0.06 ng/mL Not supportive of diagnosis of CA 0.06 - 0.50 ng/mL Indeterminate: suggest serial studies if clinically indicated. Greater than 0.5 ng/mL Consistent with diagnosis of CA 19 Because ethnic data is not always readily [...] 15-29 5 Kidney failure <15 (or dialysis) 20 ;STARCH CRYSTALS PRESENT 21 Because ethnic data is not always readily [...] 15-29 5 Kidney failure <15 (or dialysis) Procedures Date Code Description Status 05/06/2018 36198 Arthoscopy Ankle Excision Osteochondral Defect Completed 05/06/2018 02401 Arthoscopy Ankle Excision Osteochondral Defect Completed 08/14/2017 47810 Dequervains-Tendon Sheath Incision/Extensor Sheath,Wrist Completed 08/14/2017 48242 Dequervains-Tendon Sheath Incision/Extensor Sheath,Wrist Completed 04/19/201793927 Inject Tendon Sheath Or Ligament Aponeurosis Eg Plantar Completed Fascia 03/20/2017 49446 Excision Ganglion Wrist/ Dorsal Or Volar; Primary Completed 03/20/2017 69411 Excision Ganglion Wrist/ Dorsal Or Volar; Primary Completed 08/24/2016 65009 Inject/Drain Joint/Bursa Major W/O US Completed 07/25/2016 80555 Excise Benign lesion 1.1-2CM Trunk/Arm/Leg Completed 03/12/2014 03497 Dequervains-Tendon Sheath Incision/Extensor Sheath,Wrist Completed 03/12/2014 23186 Arthroscopy Wrist Excision/Repair Triang Completed Fibrocartilage/Debride 03/12/2014 66950 Arthroscopy Wrist Excision/Repair Triang Completed Fibrocartilage/Debride 12/04/2013 00882 Rad Exam; Wrist, Comp, Min 3 Views Completed 09/18/2013 31821 Rad Shoulder Comp, Min. 2 Views Completed 05/26/2013 76283 Walking Cast Completed 03/05/2013 28126 Rad Exam; Foot Comp Completed 02/14/2013 79595 Walking Cast Completed 01/15/2013 82394 Short Leg Cast Completed 01/07/2013 99410 Repair Flexor Tendon Leg Secondary W/Wo Graft Completed 11/22/2012 59088 Walking Cast Completed 11/22/2012 42618 Short Leg Cast Completed 11/13/2012 30274 Walking Cast Completed 09/12/2011 58759 Rad Exam; Wrist, Comp, Min 3 Views Completed Encounters Type Date Location Provider Dx Diagnosis Office Visit 09/20/2018 Care Nitesh Morgan MD M54.5 Low back pain 2:40p [facility] E11.9 Type 2 diabetes mellitus without complications G47.00 Insomnia, unspecified Office Visit 09/19/2018 8:30a Orthopedic Rolly M76.61 [facility] [place]. tendinitis, right C.M.A. leg M76.62 Achilles tendinitis, left leg Office Visit 09/11/2018 3:00p Care Nitesh Chacon M46.1 Sacroiliitis , not [facility] DO Martha elsewhere classified M76.61 Achilles tendinitis, right leg M54.5 Low back pain Office Visit 08/06/2018 3:00p Care Nitesh Narayan76.61 [facility]illes [facility] DO Martha tendinitis, right leg E11.9 Type 2 diabetes mellitus without complications G47.00 Insomnia, unspecified F34.1 Dysthymic disorder I10 Essential (primary) hypertension F17.210 Nicotine dependence, cigarettes, uncomplicated G47.33 Obstructive sleep apnea (adult) (pediatric) Office Visit 05/02/2018 2:30p [facility] A[facility] Morgan, E11.9 Type 2 diabetes [facility] mellitus without complications M62.830 Muscle spasm of back G47.00 Insomnia, unspecified 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 and joints of left foot Office Visit 04/09/2018 Orthopedic Rolly M93.272 Osteochondritis 11:30a [facility] [place], aaron ankle C.M.A. and joints of left foot Office Visit 04/04/2018 [facility] Aries Morgan, M62.830 Muscle spasm of back 2:30p [facility] E11.9 Type 2 diabetes mellitus without complications Office Visit 04/02/2018 1:30p [facility] Aries Morgan, F41.1 Generalized [facility] anxiety disorder F34.1 Dysthymic disorder G47.00 Insomnia, unspecified E03.9 Hypothyroidism, unspecified E78.5 Hyperlipidemia, unspecified E55.9 Vitamin D deficiency, unspecified H90.12 Condctv hear loss, uni, left ear, w unrestr hear cntra side Office Visit 03/19/2018 10:00a Orthopedic Rolly F41.1 Generalized [facility] [place] anxiety disorder C.M.A. M65.872 Other synovitis and tenosynovitis, left ankle and foot M25.572 Pain in left ankle and joints of left foot Office Visit 03/13/2018 [facility] Ines E03.9 Hypothyroidism, 2:30p [facility] Martha, unspecified E78.5 Hyperlipidemia, unspecified F41.1 Generalized anxiety disorder F34.1 Dysthymic disorder I10 Essential (primary) hypertension G47.00 Insomnia, unspecified Office Visit 02/14/2018 Isaias Lofton M65.872 Other synovitis and 9:15a [facility] tenosynovitis, left C.M.A. ankle and foot Office Visit 01/17/2018 Orthopedic Rolly M65.872 Other synovitis and 11:30a [facility] [place] tenosynovitis, left C.M.A. ankle and foot Office Visit 01/16/2018 Orthopedic Denise M25.532 Pain in left wrist 2:15p [facility] [place] C.M.A. Office Visit 12/20/2017 Orthopedic Rolly M76.812 Anterior tibial 11:00a [facility] [place] syndrome, left leg C.M.A. Office Visit 11/22/2017 Orthopedic Denise M65.842 Other synovitis and 2:15p [facility] [place] tenosynovitis, left C.M.A. hand Office Visit 11/05/2017 [facility] Internal Jose D Spivey J40 Bronchitis, not 1:00p Medicine - [place], specified as acute Rd M.D.,FACP or chronic J31.2 Chronic pharyngitis Office Visit 10/24/2017 3:20p [facility] Internal Jose Whittaker, J45.40 Moderate persistent Medicine - SEC[employer] HAND[employer] asthma, [address] uncomplicated J02.9 Acute pharyngitis, unspecified R05 Cough G47.33 Obstructive sleep apnea (adult) (pediatric) F17.210 Nicotine dependence, cigarettes, uncomplicated Office Visit 10/16/2017 4:00p [facility] Internal Jian Almeida, J20.9 Acute bronchitis, Medicine - M.D. unspecified [address] Office Visit 10/05/2017 11:20a [facility] Internal Kristina Cheek, J20.9 Acute bronchitis, Medicine N.P. unspecified Office Visit 09/14/2017 11:20a [facility] Internal Jian Almeida, F33.0 Major depressive Medicine - M.D. disorder, [address] recurrent, mild M25.562 Pain in left knee H62.40 Otitis externa in oth diseases classd elswhr, unsp ear Office Visit 08/02/2017 Orthopedic Denise M65.4 Radial styloid 2:00p [facility] tenosynovitis [de C.M.A. Quervain] Office Visit 07/12/2017 [facility] Internal Jian J06.9 Acute upper 11:40a Medicine - [place] Helene Almeida.D. respiratory Rd infection, unspecified F33.0 Major depressive disorder, recurrent, mild F41.0 Panic disorder [episodic paroxysmal anxiety] J45.909 Unspecified asthma, uncomplicated Office Visit 05/03/2017 2:00p [facility] Internal Jian Almeida, Z00.00 Encntr for Medicine - M.D. general adult [address] medical exam w/o abnormal findings G47.30 Sleep apnea, unspecified M25.532 Pain in left wrist Z12.31 Encntr screen mammogram for malignant neoplasm of breast J45.909 Unspecified asthma, uncomplicated Z23 Encounter for immunization Office Visit 04/30/2017 10:00a Orthopedic Nereyda Rick, M67.442 Ganglion , left Services Of [facility] hand C.M.A. M65.4 Radial styloid tenosynovitis [de Quervain] Office Visit 04/13/2017 1:00p [facility] Internal Jina Almeida, F33.0 Major depressive Medicine - M.DHayder disorder, [address] recurrent, mild F41.0 Panic disorder [episodic paroxysmal anxiety] G43.009 Migraine w/o aura, not intractable, w/o status migrainosus Office Visit 03/29/2017 2:00p [facility] Internal Jian Almeida, I10 Essential (primary) Medicine - M.DHayder hypertension [address] E78.2 Mixed hyperlipidemia K21.9 Gastro-esophageal reflux disease without esophagitis F33.0 Major depressive disorder, recurrent, mild E66.9 Obesity, unspecified J45.20 Mild intermittent asthma, uncomplicated M13.0 Polyarthritis, unspecified M54.5 Low back pain G43.009 Migraine w/o aura, not intractable, w/o status migrainosus F41.0 Panic disorder without agoraphobia Z23 Encounter for immunization Office Visit 03/07/2017 10:00a Orthopedic Denise D48.1 Neoplasm of [facility] uncertain behavior C.M.A. of connctv/soft tiss M67.432 Ganglion, left wrist Office Visit 01/19/2017 1:45p Orthopedic Rolly M76.822 Posterior tibial [facility] [place] tendinitis, left C.M.A. leg M76.62 Achilles tendinitis, left leg Office Visit 01/15/2017 1:00p Britt Steiner, G44.219 Episodic Neurologic tension-type Services Of [facility] T[facility] headache, not intractable Office Visit 12/26/2016 10:30a Orthopedic Rolly Narayan76.822 Posterior tibial [facility] [place] tendinitis, left C.M.A. leg M76.62 Achilles tendinitis, left leg Office Visit 11/24/2016 9:30a Orthopedic Rolly العراقي.822 Posterior tibial [facility] tendinitis, left C.M.A. leg Office Visit 08/24/2016 2:30p Orthopedic Anibal Vargas M75.42 Impingement Services Of MD Altagracia syndrome of left C.M.A. shoulder M19.012 Primary osteoarthritis, left shoulder Office Visit 01/25/2016 Orthopedic Rolly S93.401A Sprain of 2:20p [facility] [place] unspecified C.M.A. ligament of right ankle, init encntr Office Visit 08/13/2015 Orthopedic Rolly S93.402A Sprain of 2:20p [facility] [place] unspecified C.M.A. ligament of left ankle, init encntr Office Visit 06/16/2015 Orthopedic Anniat Oliva M79.1 Myalgia 1:45p Services Of MD [place] Office Visit 04/20/2015 Orthopedic Helene Grace79.1 Myalgia 2:20p Services Of [facility] [place] Office Visit 03/04/2015 Orthopedic Alhaji Velásquez 728.85 Spasm Muscle 2:45p Services [facility] [place] Office Visit 02/11/2015 Isaias Velásquez 728.85 Spasm Muscle 1:30p Services [facility] [place] Office Visit 05/05/2014 Orthopedic Alhaji Velásquez 728.85 Spasm Muscle 1:45p Services [facility] [place] Office Visit 03/03/2014 Orthopedic Cinthia Corona, 719.41 Pain Joint 2:45p Services Of JAKE Shoulder Region C.M.AHayder Office Visit 02/24/2014 Orthopedic Kyra 718.03 Articular 10:45a Services Of Kvng Medina C.M.A. MHayderD. Disorder Forearm Office Visit 01/20/2014 Orthopedic Kyra 718.03 Articular 11:30a Services Of Carol Cartilage C.M.A. MHayderD. 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 Unspec Site Office Visit 10/16/2013 9:45a Orthopedic Ellie Breen 719.41 Pain Joint Services Of [facility] Shoulder Region C.M.A. Office Visit 09/18/2013 2:45p Orthopedic Rolly Jensen0.8 Sprains & Strains [facility] [place] Shoulder & Upper C.M.A. Arm Other Spec Sites Office Visit 08/20/2013 3:00p Isaias Jensen0.8 [facility] Arm Other Spec Sites Office Visit 06/12/2013 2:00p Isaias Jensen0.8 [facility] Other Spec Sites Office Visit 05/26/2013 4:00p Isaias Boyce6.72 [facility] Tibialis [facility] Office Visit 04/11/2013 10:15a Isaias Boyce6.72 [facility]ial[facility] Office Visit 12/11/2012 1:00p Isaias Boyce7.69 Ruptured [facility] Nontraumatic Other [facility] 726.72 Tendinitis Tibialis Office Visit 11/22/2012 9:15a Isaias Nguyen.69 [facility]ptured [facility] Nontraumatic Other C.[facility].A. 726.72 Tendinitis Tibialis Office Visit 11/13/2012 2:00p Orthopedic Rober Plata.72 [facility] Office Visit 05/02/2012 11:30a Orthopedic Camila Grace0.8 [facility] & Upper Arm Other Spec Sites Office Visit 04/08/2012 1:30p Orthopedic Jerry Levine 845.00 [facility] Ankle [facility] RPA-C Unspec Site Office Visit 10/17/2011 11:45a Orthopedic Kyra 719.42 Pain Joint [facility].M.AHayder Mccray Office Visit 09/12/2011 11:30a Orthopedic Alhaji Velásquez, 841.8 [facility] El[facility] Forearm Other Spec Sites 719.43 Pain Joint Forearm Plan of Treatment Future Appointment(s):11/26/2018 9:00 am - Rolly Fountain M.D. at [facility]01/21/2019 2:30 pm - Jazzmine Goldsmith MD at [facility]12/21/2017 - Jose Whittaker, FNPZ00.01 Encounter for general adult medical examination with abnormal qnojdbdnL45.01 Impaired fasting wiwpwykB42.5 Hyperlipidemia, [id number] Essential (primary) ngktqbcwtkecS79.9 Obesity, zjhjjtpksnuC55.9 Hypothyroidism, epdlvxpeyvtH92.33 Obstructive sleep apnea (adult) (pediatric)F17.210 Nicotine dependence, cigarettes, uncomplicated
--- NOTE | 2018-12-01 23:46 | ED ---
Syncope/Near Syncope - HPI Summary HPI Summary: Patient is a 48 y/o F presenting to ED via EMS with complaints of syncopal episode. She was in the kitchen earlier today when she experienced sudden onset of dizziness/light-headedness. Patient was sat down by her roommate, who was present in the room and witnessed the episode. As she was sitting, she experienced a syncopal episode, fell forward, and was caught by her roommate. Roommate reports that the patient was "passed out" for 10-15 minutes. Roommate applied a cold compress to the patient's forehead and she began to come to. PMHx of syncope but no recent episodes noted. Hx of diabetes, finger stick BG 109. At present, patient notes some fatigue. On triage, pain is denied, nothing is noted to aggravate/alleviate Sx. Home medications and allergies are reviewed. - History Of Current Complaint Chief Complaint: EDSyncope Time Seen by Provider: 12/01/18 23:33 Hx Obtained From: Patient, Other: - roommate Onset/Duration: Lasting Minutes - 10-15 minutes patient was "passed out", Resolved Timing: Minutes - 10-15 minutes patient was "passed out" Context: Witnessed Activity At Onset: Other - standing in kitchen Aggravating Factor(s): Nothing Alleviating Factor(s): Other - cold compress Associated Signs And Symptoms: Dizzy, Other - fatigue - Allergies/Home Medications Allergies/Adverse Reactions: Allergies Allergy/AdvReac Type Severity Reaction Status Date / Time amoxicillin Allergy Intermediate Rash Verified 12/01/18 22:35 Home Medications: Home Medications Mirtazapine 1 tab PO BEDTIME 12/01/18 [History Confirmed 12/01/18] clonazePAM TAB(*) [Klonopin TAB(*)] 0.5 mg PO BID PRN 12/01/18 [History Confirmed 12/01/18] PMH/Surg Hx/FS Hx/Imm Hx Endocrine/Hematology History: Denies: Hx Anticoagulant Therapy, Hx Diabetes, Hx Thyroid Disease Cardiovascular History: Reports: Hx Hypertension - ON MEDS, Other Cardiovascular Problems/Disorders - HIGH CHOLESTEROL Denies: Hx Pacemaker/ICD Respiratory History: Reports: Hx Asthma - PRN INHALER, Hx Sleep Apnea Denies: Hx Chronic Obstructive Pulmonary Disease (COPD), Other Respiratory Problems/Disorders GI History: Denies: Hx Gastroesophageal Reflux Disease, Hx Ulcer, Other GI Disorders History: Denies: Hx Renal Disease, Other Problems/Disorders Musculoskeletal History: Reports: Hx Arthritis - LEFT ANKLE, Hx Tendonitis - LEFT WRIST, LEFT ANKLE Denies: Other Musculoskeletal History Sensory History: Reports: Hx Contacts or Glasses - GLASSES Denies: Hx Hearing Aid Opthamlomology History: Reports: Hx Contacts or Glasses - GLASSES Neurological History: Reports: Hx Migraine - HISTORY OF, Other Neuro Impairments /Disorders - BIPOLAR Denies: Hx Dementia, Hx Seizures Psychiatric History: Reports: Hx Anxiety, Hx Depression, Hx Panic Disorder - ANXIETY Denies: Hx Eating Disorder, Hx of Violent Episodes Against Others, Hx Substance Abuse - Surgical History Surgery Procedure, Year, and Place: LEFT WRIST CYST REMOVAL 2014. LEFT ANKLE ARTHROSCOPY 01/2013. LEFT KNEE ARTHROSCOPIC 2008. TUBAL LIGATION 2000. I & D ABD AREA DUE TO INFECTION RELATED TO CAT-SCRATCH FEVER AGE 6. RIGHT WRIST - TENDONITIS Hx Anesthesia Reactions: No Infectious Disease History: No Infectious Disease History: Denies: Hx Clostridium Difficile, Hx Hepatitis, Hx Human Immunodeficiency Virus (HIV), Hx of Known/Suspected MRSA, Hx Shingles, Hx Tuberculosis, Traveled Outside the in Last 30 Days - Family History Known Family History: Positive: Hypertension, Diabetes, Other - cancer - colon; parkinsons - Social History Alcohol Use: None Hx Substance Use: No Substance Use Type: Reports: None Hx Tobacco Use: Yes Smoking Status (MU): Light Every Day Tobacco Smoker Type: Cigarettes Amount Used/How Often: 1-10 CIG/DAY Length of Time of Smoking/Using Tobacco: 33 YEARS- SINCE AGE 10 Have You Smoked in the Last Year: Yes Review of Systems Positive: Fatigue Neurological: Other - POSITIVE - DIZZINESS Positive: Syncope All Other Systems Reviewed And Are Negative: Yes Physical Exam - Summary Physical Exam Summary: VITAL SIGNS: Reviewed. GENERAL: Patient is a well-developed and morbidly obese female who is lying comfortable in the stretcher. Patient is not in any acute respiratory distress. HEAD AND FACE: No signs of trauma. No ecchymosis, hematomas or skull depressions. No sinus tenderness. EYES: PERRLA, EOMI x 2, No injected conjunctiva, no nystagmus. EARS: Hearing grossly intact. Ear canals and tympanic membranes are within normal limits. MOUTH: Oropharynx within normal limits. NECK: Supple, trachea is midline, no adenopathy, no JVD, no carotid bruit, no c- spine tenderness, neck with full ROM CHEST: Symmetric, no tenderness at palpation LUNGS: Clear to auscultation bilaterally. No wheezing or crackles. CVS: Regular rate and rhythm, S1 and S2 present, no murmurs or gallops appreciated. ABDOMEN: Soft, non-tender. No signs of distention. No rebound no guarding, and no masses palpated. Bowel sounds are normal. EXTREMITIES: FROM in all major joints, no edema, no cyanosis or clubbing. NEURO: Alert and oriented x 3. No acute neurological deficits. Speech is normal and follows commands. SKIN: Dry and warm Triage Information Reviewed: Yes Vital Signs On Initial Exam: Initial Vitals Temp Pulse Resp BP Pulse Ox 97.3 F 69 20 135/86 96 12/01/18 22:36 12/01/18 22:36 12/01/18 22:36 12/01/18 22:36 12/01/18 22:36 Vital Signs Reviewed: Yes Diagnostics - Vital Signs Vital Signs Temp Pulse Resp BP Pulse Ox 12/01/18 22:36 97.3 F 69 20 135/86 96 - Laboratory Result Diagrams: 12/02/18 00:10 12/02/18 00:10 Lab Statement: Any lab studies that have been ordered have been reviewed, and results considered in the medical decision making process. - EKG 2330 Cardiac Rate: NL - rate of 71 BPM EKG Rhythm: Sinus Rhythm Summary of EKG Findings: EKG showed sinus rhythm with rate of 71 BPM, normal axis, normal intervals, no ischemic changes. Re-Evaluation - Re-Evaluation First Eval Re-Evaluation Time: 01:19 Comment: Admission was discussed with the patient. However, she wants to be discharged to home. She was given strict return precautions and is advised to follow up with PCP and a cash room clerk. Course/Dx Course Of Treatment: Patient is a 48 y/o F presenting to ED via EMS with complaints of syncopal episode. She was in the kitchen earlier today when she experienced sudden onset of dizziness/light-headedness. Patient was sat down by her roommate, who was present in the room and witnessed the episode. As she was sitting, she experienced a syncopal episode, fell forward, and was caught by her roommate. Roommate reports that the patient was "passed out" for 10-15 minutes. Roommate applied a cold compress to the patient's forehead and she began to come to. PMHx of syncope but no recent episodes noted. Hx of diabetes, finger stick BG 109. At present, patient notes some fatigue. EKG showed sinus rhythm with rate of 71 BPM, normal axis, normal intervals, no ischemic changes. Labs showed RBC 4.9, MCH 32, MPV 6.8, AST 12, trop 0, TSH 1.72. UA showed 1+ blood, trace RBC. During ED course, patient received fluids. Admission was discussed with the patient. However, she wants to be discharged to home. She was given strict return precautions and is advised to follow up with PCP and a cash room clerk. - Diagnoses Provider Diagnoses: Syncope Discharge - Sign-Out/Discharge Documenting (check all that apply): Patient Departure - discharge Patient Received Moderate/Deep Sedation with Procedure: No - Discharge Plan Condition: Stable Disposition: HOME Patient Education Materials: Syncope (ED) Referrals: Aries Morgan MD [Primary Care Provider] - 3 Days Vania Powell MD [Medical Doctor] - 3 Days Additional Instructions: PLEASE RETURN TO THE ED IMMEDIATELY FOR WORSENING OR CONCERNING SYMPTOMS. FOLLOW UP WITH [employer]LECTRONICS ENGINEER AND YOUR PRIMARY CARE PHYSICIAN WITHIN THREE DAYS. - Attestation Statements Document Initiated by Scribe: Yes Documenting Scribe: CORY OLIVA Provider For Whom Nii is Documenting (Include Credential): DAREK LUNA MD Scribe Attestation: CORY Britt, scribed for DAREK LUNA MD on 12/02/18 at 0309. Status of Scribe Document: Ready
[2018-12-01] MEDS ORDERED: NS 0.9% 500 ML* 500 ML IV ONE (23:48)
[2018-12-02 00:16] LABS: ABS Basophils 0.1 10^3/ul (0-0.2); ABS Eosinophils 0.2 10^3/ul (0-0.6); ABS Lymphocytes 3.1 10^3/ul (1.0-4.8); ABS Monocytes 0.7 10^3/ul (0-0.8); ABS Neutrophils 4.1 10^3/ul (1.5-7.7); Eosinophil % 2.9 %; Hematocrit 46 % (35-47); Hemoglobin 15.6 g/dL (12.0-16.0); Lymphocyte % 37.6 %; Mean Corpuscular HGB Conc 34 g/dL (31-36); Mean Corpuscular Hemoglobin 32 pg (27-31); Mean Corpuscular Volume 94 fL (80-97); Mean Platelet Volume 6.8 fL (7.4-10.4); Nucleated Red Blood Cells % 0.1; Platelet Count 288 10^3/uL (150-450); Red Cell Distribution Width 15 % (10.5-15); White Blood Count 8.2 10^3/uL (3.5-10.8)
[2018-12-02 00:34] LABS: Albumin 4.2 g/dL (3.2-5.2); Albumin/Globulin Ratio 1.6 (1-3); BUN/Creatinine Ratio 16.4 (8-20); Calcium 9.2 mg/dL (8.6-10.3); EGFR African American 114.2 (>60); EGFR Non-African American 94.3 (>60); Globulin 2.7 g/dL (2-4); Magnesium 2.2 mg/dL (1.9-2.7); Total Bilirubin 0.2 mg/dL (0.2-1.0); Total Protein 6.9 g/dL (6.4-8.9)
[2018-12-02 00:39] LABS: Activated Partial Thrombo Time 32.3 seconds (26.0-36.3); INR 0.83 (0.82-1.09)
[2018-12-02 00:58] LABS: Urine Appearance Clear; Urine Bacteria Absent (Absent); Urine Bilirubin Negative (Negative); Urine Blood 1+ (Negative); Urine Color Straw; Urine Glucose Negative (Negative); Urine Ketones Negative (Negative); Urine Nitrite Negative (Negative); Urine Protein Negative (Negative); Urine Red Blood Cell Trace(0-2/hpf) (Absent); Urine Specific Gravity 1.002 (1.010-1.030); Urine Urobilinogen Negative (Negative); Urine White Blood Cell Absent (Absent)
[2018-12-02 01:04] LABS: TSH (Thyroid Stimulating Horm) 1.72 mcIU/mL (0.34-5.60)
[2018-12-02 01:54] VITALS: BP 140/93
== END 2018-12-02 02:19 | disposition home or self-care (01) ==
LOC: ED 22:33
DX: R55 Syncope and collapse (principal); R53.83 Other fatigue; E11.9 Type 2 diabetes mellitus without complications; I10 Essential (primary) hypertension; J45.909 Unspecified asthma, uncomplicated; F41.0 Panic disorder [episodic paroxysmal anxiety]; F32.9 Major depressive disorder, single episode, unspecified; Z88.0 Allergy status to penicillin; F17.210 Nicotine dependence, cigarettes, uncomplicated
CPT/HCPCS: 36415; 80053; 81003; 81015; 83735; 84443; 84484; 85025; 85610; 85730; 93005; 96360; 99283

== ENCOUNTER 2019-02-08 22:24 | Emergency (ER) | payer OTHER ==
[2019-02-08] MEDS ORDERED: Ketorolac INJ* 30 MG/ML 1 ML VIAL IM ONE (22:50)
--- NOTE | 2019-02-08 23:17 | ED ---
Lower Extremity - HPI Summary HPI Summary: 48-year-old female presents with right knee pain for the past week. She denies any known injury. She admits to swelling to the knee. No rash. No fevers or chills. Has been having difficulty walking on it due to pain. States feels like it may give out. Has had previous surgeries on her ankles. Is diabetic. - History of Current Complaint Chief Complaint: EDExtremityLower Stated Complaint: RT KNEE PAIN PER EMS Time Seen by Provider: 02/08/19 22:37 Hx Last Menstrual Period: 07/18/16 Pain Intensity: 9 - Allergies/Home Medications Allergies/Adverse Reactions: Allergies Allergy/AdvReac Type Severity Reaction Status Date / Time amoxicillin Allergy Intermediate Rash Verified 02/08/19 22:36 PMH/Surg Hx/FS Hx/Imm Hx Endocrine/Hematology History: Reports: Hx Diabetes Denies: Hx Anticoagulant Therapy, Hx Thyroid Disease Cardiovascular History: Reports: Hx Hypertension - ON MEDS, Other Cardiovascular Problems/Disorders - HIGH CHOLESTEROL Denies: Hx Pacemaker/ICD Respiratory History: Reports: Hx Asthma - PRN INHALER, Hx Sleep Apnea Denies: Hx Chronic Obstructive Pulmonary Disease (COPD), Other Respiratory Problems/Disorders GI History: Denies: Hx Gastroesophageal Reflux Disease, Hx Ulcer, Other GI Disorders History: Denies: Hx Renal Disease, Other Problems/Disorders Musculoskeletal History: Reports: Hx Arthritis - LEFT ANKLE, Hx Tendonitis - LEFT WRIST, LEFT ANKLE Denies: Other Musculoskeletal History Sensory History: Reports: Hx Contacts or Glasses - GLASSES Denies: Hx Hearing Aid Opthamlomology History: Reports: Hx Contacts or Glasses - GLASSES Neurological History: Reports: Hx Migraine - HISTORY OF, Other Neuro Impairments /Disorders - BIPOLAR Denies: Hx Dementia, Hx Seizures Psychiatric History: Reports: Hx Anxiety, Hx Depression, Hx Panic Disorder - ANXIETY Denies: Hx Eating Disorder, Hx of Violent Episodes Against Others, Hx Substance Abuse - Surgical History Surgery Procedure, Year, and Place: LEFT WRIST CYST REMOVAL 2014. LEFT ANKLE ARTHROSCOPY 01/2013. LEFT KNEE ARTHROSCOPIC 2008. TUBAL LIGATION 2000. I & D ABD AREA DUE TO INFECTION RELATED TO CAT-SCRATCH FEVER AGE 6. RIGHT WRIST - TENDONITIS Hx Anesthesia Reactions: No Infectious Disease History: No Infectious Disease History: Denies: Hx Clostridium Difficile, Hx Hepatitis, Hx Human Immunodeficiency Virus (HIV), Hx of Known/Suspected MRSA, Hx Shingles, Hx Tuberculosis, Traveled Outside the [place] in Last 30 Days - Family History Known Family History: Positive: Hypertension, Diabetes, Other - cancer - colon; parkinsons - Social History Alcohol Use: None Hx Substance Use: No Substance Use Type: Reports: None Hx Tobacco Use: Yes Smoking Status (MU): Heavy Every Day Tobacco Smoker Type: Cigarettes Amount Used/How Often: 1-10 CIG/DAY Length of Time of Smoking/Using Tobacco: 33 YEARS- SINCE AGE 10 Have You Smoked in the Last Year: Yes Review of Systems Negative: Fever Negative: Chest Pain Negative: Shortness Of Breath Positive: Myalgia - right knee pain All Other Systems Reviewed And Are Negative: Yes Physical Exam Triage Information Reviewed: Yes Vital Signs On Initial Exam: Initial Vitals Temp Pulse Resp BP Pulse Ox 97.3 F 72 16 111/95 97 02/08/19 22:30 02/08/19 22:30 02/08/19 22:30 02/08/19 22:30 02/08/19 22:30 Vital Signs Reviewed: Yes Appearance: Positive: Well-Appearing Skin: Positive: Warm, Dry Head/Face: Positive: Normal Head/Face Inspection Eyes: Positive: Normal, Conjunctiva Clear ENT: Positive: Pharynx normal Respiratory/Lung Sounds: Positive: Clear to Auscultation, Breath Sounds Present Cardiovascular: Positive: Normal, RRR Musculoskeletal: Positive: Limited @ - right knee, passive ROM intact, Other - good pulses, neg anterior drawer, no laxity to joint, mild edema, no erythema Neurological: Positive: Normal Psychiatric: Positive: Normal Diagnostics - Vital Signs Vital Signs Temp Pulse Resp BP Pulse Ox 02/08/19 22:30 97.3 F 72 16 111/95 97 - Laboratory Lab Statement: Any lab studies that have been ordered have been reviewed, and results considered in the medical decision making process. - Radiology knee Radiology Interpretation Completed By: ED Physician Summary of Radiographic Findings: no fracture Lower Extremity Course/Dx - Course Course Of Treatment: 48-year-old female presents with right knee pain for the past week. She denies any known injury. She admits to swelling to the knee. No rash. No fevers or chills. Has been having difficulty walking on it due to pain. States feels like it may give out. Has had previous surgeries on her ankles. Is diabetic. On exam tenderness over right knee. Neurovascular intact. No erythema. X-ray shows no acute findings. gave knee immobilizer. Told to follow up with ortho. Patient understands and agrees with plan. - Diagnoses Differential Diagnosis/HQI/PQRI: Positive: Fracture (Closed), Sprain, Strain Provider Diagnoses: Right knee pain Discharge - Sign-Out/Discharge Documenting (check all that apply): Patient Departure Patient Received Moderate/Deep Sedation with Procedure: No - Discharge Plan Condition: Good Disposition: HOME Prescriptions: Ibuprofen TAB* [Motrin TAB* 600 MG] 600 mg PO Q6H PRN #20 tab PRN Reason: Pain - Moderate Patient Education Materials: Knee Pain (ED) Referrals: Aries Morgan MD [Primary Care Provider] - Rolly Fountain MD [Medical Doctor] - Additional Instructions: Use immobilizer Stay off knee as much as possible Ice, elevate, Ibuprofen or Tylenol every 6 hours for pain Follow up with ortho Return to ED if develop or any new or worsening symptoms - Billing Disposition and Condition Condition: GOOD Disposition: Home
[2019-02-09 00:13] VITALS: BP 146/102
== END 2019-02-09 00:13 | disposition home or self-care (01) ==
LOC: ED 22:24
DX: M25.561 Pain in right knee (principal); F17.210 Nicotine dependence, cigarettes, uncomplicated; E11.9 Type 2 diabetes mellitus without complications; I10 Essential (primary) hypertension; J45.909 Unspecified asthma, uncomplicated; Z79.899 Other long term (current) drug therapy; Z88.0 Allergy status to penicillin
CPT/HCPCS: 96372; 99283; J1885

== ENCOUNTER 2019-05-23 04:09 | Emergency (ER) | payer OTHER ==
--- NOTE | 2019-05-23 04:24 | ED ---
Upper Extremity Pain - HPI Summary HPI Summary: Patient is a 48 y/o F presenting to [facility] via EMS with complaints of left hand pain. Patient reports that earlier this evening, she had a coughing fit and became dizzy. As a result, she became unbalanced and fell. As she did, she put out her left arm to brace herself on a railing. She struck the railing with her hand but managed to catch herself from a fall. No other injury is reported. PMHx of diabetes, HTN, HLD, asthma, migraines, anxiety and depression is noted. On triage, pain is rated 9/10, movement is noted to aggravate Sx, nothing is reported to alleviate Sx. Home medications and allergies are reviewed. - History of Current Complaint Stated Complaint: FALL PER EMS Hx Obtained From: Patient Hx Last Menstrual Period: 07/18/16 Mechanism Of Injury: Direct Blow Onset/Duration: Still Present Timing: Constant Severity Currently: Severe Pain Location: Hand - left Aggravating Factor(s): Movement Alleviating Factor(s): Nothing Associated Signs & Symptoms: Negative: Fever - on vitals, temp is 98.2 F - Allergies/Home Medications Allergies/Adverse Reactions: Allergies Allergy/AdvReac Type Severity Reaction Status Date / Time amoxicillin Allergy Intermediate Rash Verified 05/23/19 04:17 PMH/Surg Hx/FS Hx/Imm Hx Endocrine/Hematology History: Reports: Hx Diabetes Denies: Hx Anticoagulant Therapy, Hx Thyroid Disease Cardiovascular History: Reports: Hx Hypertension - ON MEDS, Other Cardiovascular Problems/Disorders - HIGH CHOLESTEROL Denies: Hx Pacemaker/ICD Respiratory History: Reports: Hx Asthma - PRN INHALER, Hx Sleep Apnea Denies: Hx Chronic Obstructive Pulmonary Disease (COPD), Other Respiratory Problems/Disorders GI History: Denies: Hx Gastroesophageal Reflux Disease, Hx Ulcer, Other GI Disorders History: Denies: Hx Renal Disease, Other Problems/Disorders Musculoskeletal History: Reports: Hx Arthritis - LEFT ANKLE, Hx Tendonitis - LEFT WRIST, LEFT ANKLE Denies: Other Musculoskeletal History Sensory History: Reports: Hx Contacts or Glasses - GLASSES Denies: Hx Hearing Aid Opthamlomology History: Reports: Hx Contacts or Glasses - GLASSES Neurological History: Reports: Hx Migraine - HISTORY OF, Other Neuro Impairments /Disorders - BIPOLAR Denies: Hx Dementia, Hx Seizures Psychiatric History: Reports: Hx Anxiety, Hx Depression, Hx Panic Disorder - ANXIETY Denies: Hx Eating Disorder, Hx of Violent Episodes Against Others, Hx Substance Abuse - Surgical History Surgery Procedure, Year, and Place: LEFT WRIST CYST REMOVAL 2014. LEFT ANKLE ARTHROSCOPY 01/2013. LEFT KNEE ARTHROSCOPIC 2008. TUBAL LIGATION 2000. I & D ABD AREA DUE TO INFECTION RELATED TO CAT-SCRATCH FEVER AGE 6. RIGHT WRIST - TENDONITIS Hx Anesthesia Reactions: No Infectious Disease History: No Infectious Disease History: Denies: Hx Clostridium Difficile, Hx Hepatitis, Hx Human Immunodeficiency Virus (HIV), Hx of Known/Suspected MRSA, Hx Shingles, Hx Tuberculosis, Traveled Outside the [place] in Last 30 Days - Family History Known Family History: Positive: Hypertension, Diabetes, Other - cancer - colon; parkinsons - Social History Alcohol Use: None Hx Substance Use: No Substance Use Type: Reports: None Hx Tobacco Use: Yes Smoking Status (MU): Heavy Every Day Tobacco Smoker Type: Cigarettes Amount Used/How Often: 1-10 CIG/DAY Length of Time of Smoking/Using Tobacco: 33 YEARS- SINCE AGE 10 Have You Smoked in the Last Year: Yes Review of Systems Negative: Fever - on vitals, temp is 98.2 F Musculoskeletal: Other - positive - left hand pain All Other Systems Reviewed And Are Negative: Yes Physical Exam - Summary Physical Exam Summary: Appearance: Well-appearing, Well-nourished, lying in bed comfortable Skin: Warm, dry, no obvious rash Eyes: sclera anicteric, no conjunctival pallor ENT: mucous membranes moist Neck: deferred Respiratory: No signs of respiratory distress Cardiovascular: Appears well perfused, pulses are nml Abdomen: deferred Musculoskeletal: There is tenderness over the distal radius and distal 2nd metacarpal of the left hand. No deformity noted. Neurological: Awake and alert, mentation is normal, speech is fluent and appropriate Psychiatric: affect is normal, does not appear anxious or depressed Triage Information Reviewed: Yes Vital Signs On Initial Exam: Initial Vitals Temp Pulse Resp BP Pulse Ox 98.2 F 68 16 151/101 95 05/23/19 04:10 05/23/19 04:10 05/23/19 04:10 05/23/19 04:10 05/23/19 04:10 Vital Signs Reviewed: Yes Procedures - Sedation Patient Received Moderate/Deep Sedation with Procedure: No - Splinting Left Lower Extremity Location: left hand Splint: short arm OCL Pre-Proc Neuro Vasc Exam: normal Post-Proc Neuro Vasc Exam: normal Diagnostics - Vital Signs Vital Signs Temp Pulse Resp BP Pulse Ox 05/23/19 04:10 98.2 F 68 16 151/101 95 - Laboratory Lab Statement: Any lab studies that have been ordered have been reviewed, and results considered in the medical decision making process. - Radiology LEFT HAND X-RAY Radiology Interpretation Completed By: ED Physician Summary of Radiographic Findings: Negative for fracture, pending official report. LEFT WRIST X-RAY Radiology Interpretation Completed By: ED Physician Summary of Radiographic Findings: Negative for fracture, pending official report. Re-Evaluation - Re-Evaluation First Eval Re-Evaluation Time: 04:58 Comment: Splint was applied. Course/Dx - Course Course Of Treatment: Patient is a 48 y/o F presenting to [facility] via EMS with complaints of left hand pain. Patient reports that earlier this evening, she had a coughing fit and became dizzy. As a result, she became unbalanced and fell. As she did, she put out her left arm to brace herself on a railing. She struck the railing with her hand but managed to catch herself from a fall. No other injury is reported. On physical exam, there is tenderness over the distal radius and distal 2nd metacarpal of the left hand. No deformity noted. Left hand and left wrist x-ray were negative for fracture. Short arm OCL splint was applied to hand. Patient was discharged to home and will follow up with PCP. - Diagnoses Provider Diagnoses: Contusion of left hand Discharge ED - Sign-Out/Discharge Documenting (check all that apply): Patient Departure - discharge - Discharge Plan Condition: Stable Disposition: HOME Patient Education Materials: Contusion in Adults (ED) Referrals: Aries Morgan MD [Primary Care Provider] - - Billing Disposition and Condition Condition: STABLE Disposition: Home - Attestation Statements Document Initiated by Nii: Yes Documenting Scribe: CORY OLIVA Provider For Whom Nii is Documenting (Include Credential): TIM ENRIQUE MD Scribe Attestation: CORY Britt scribed for TIM ENRIQUE MD on 05/23/19 at 1851. Scribe Documentation Reviewed: Yes Provider Attestation: The documentation as recorded by the CORY chin accurately reflects the service I personally performed and the decisions made by me, TIM ENRIQUE MD Status of Scribe Document: Viewed
--- OUTSIDE RECORDS SUMMARY | 2019-05-23 04:46 | XMS REPORT | Continuity of Care Document ---
:1970 External Reference #:[id number] Author Name Ines Thomas DO (transmitted by agent of provider Sandee Taylor) Address [address] [place] [id number] Care Team Providers Name Role Phone Luis Antonio Avila MD - Neurology Care Team Information Poultry Picking Machine Tender [phone] [facility] - Care Team Information Poultry Picking Machine Tender [facility] - Sleep Disorder Care Team Information Poultry Picking Machine Tender [phone] Diagnostic Ines Thomas DO - Hospitalist Care Team Information Poultry Picking Machine Tender Aries Morgan MD - Hospitalist Care Team Information Poultry Picking Machine Tender [phone] Problems Active Problems Provider Date 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/02/2018 Social History Type Date Description Comments Sex Unknown ETOH Use Denies alcohol use Tobacco Use Start: Unknown Light tobacco smoker (10 or fewer cigarettes/day) Recreational Drug Use Denies Drug Use Smoking Status Reviewed: 05/19/19 Light tobacco smoker (10 or fewer cigarettes/day) Exercise Type/Frequency Exercises regularly Walking Allergies, Adverse Reactions, Alerts Active Allergies Reaction Severity Comments Date Amoxicillin 08/20/2013 Medications Active Medications SIG Qnty Indications Ordering Date Provider Paroxetine HCL take two tabs 60tabs N95.1 Ines Thomas 05/19/2019 20mg daily DO Tablets Oxybutynin Chloride ER 1 by mouth every 30tabs N32.81 Ines Thomas 05/2019 day DO 5mg Tablets ER 24HR Cyclobenzaprine HCL Take 1 Tablet By 90tabs Aries Morgan MD 05/11/2019 10mg Mouth Three Times Tablets A Day Lisinopril 2 by mouth every 60tabs I10 Ines Thomas, 04/17/2019 20mg Tablets day DO Podofilox apply to affected 3.500ml Ines Thomas 04/17/2019 0.5% Solution area once per DO day. leave on for two hours, then rinse off. Klpowerpin 1/2 by mouth in Unknown 03/31/2019 1mg Tablets am and at noon, 1 by mouth at bedtime Hydrocodone-Acetaminop take one twice a 60tabs M54.5 Aries Morgan MD 2018 hen day as needed for 5-325mg Tablets pain Nicotine Apply 1 Patch 28units F17.210 Aries Morgan MD 12/17/2018 14mg/24HR Clean Skin Daily. Patches 24HR Nabumetone one daily 30tabs Rolly Fountain 12/05/2018 500mg Tablets M.D. Lancets for use with true 100units Ines Thomas, 04/05/2018 [facility] metrix glucometer DO True Metrix Self for blood glucose 100units Aries Morgan MD 04/05/2018 Monitoring Blood monitoring, up to Glucose Strips 3 times a day Strips True Metrix Meter For blood glucose 1units Aries Morgan MD 04/05/2018 Device monitoring daily Metformin HCL Take 1 Tablet By 60tabs E11.9 Aries Morgan MD 04/04/2018 500mg Mouth Twice A Day Tablets D3 High Potency take one 90caps Aries Morgan MD 10/05/2017 1000Unit capsule/tablet Capsules daily by mouth Albuterol Sulfate one treatment 90ml J45.20 Jian 03/29/2017 every 4 as needed Shazia Almeida 0.63mg/3ML Nebulizer Gabapentin Take 1 Capsule By 90caps Ines Thomas, 300mg Capsules Mouth Three Times DO A Day Venlafaxine HCL three 75 mg tabs Unknown 75mg at night to equal Tablets 225mg . 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 History Medications Paroxetine HCL take one tab daily 60tabs N95.1 Ines 04/17/2019 - 20mg for two weeks and if DO Martha 05/19/2019 Tablets symptoms still uncontrolled, can double to 40mg daily Hydrocodone-Acetaminop take one every 8 45tabs Ines 03/21/2019 - hen hours as needed for DO Martha 03/28/2019 5-325mg Tablets pain Cyclobenzaprine HCL 1 by mouth three 90tabs M54.5 Aries Morgan MD 2018 - 10mg times a day 03/28/2019 Tablets Tramadol HCL take every 8 hours 42tabs M54.5 Aries Morgan MD 03/06/2019 - 50mg Tablets as needed for pain 03/28/2019 Imiquimod ( not approved by [facility] B07.9 Ines 02/20/2019 - 5% Cream insurance) apply to DO Martha 04/01/2019 affected area three times per week Paroxetine HCL take one tab daily 30tabs N95.1 Ines 02/20/2019 - 10mg DO Martha 04/17/2019 Tablets Tramadol HCL one pill twice day 14tabs Rolly 12/26/2018 - 50mg Tablets for pain Shazia Fountain 02/20/2019 Fluticasone 1 puff twice a day 60units Ines 12/24/2018 - Propionate/Salmeterol DO Martha 03/28/2019 Diskus 100-50mcg/Dose Aerosol Benzonatate take one every 6 30caps J06.9 Ines 11/18/2018 - 100mg hours as needed for DO Martha 02/20/2019 Capsules cough Guaifenesin-DM 5 ml as needed for 500ml J06.9 Ines 11/18/2018 - cough DO Martha 02/20/2019 100-10mg/5ML Syrup Mucinex take one twice a day 14tabs J06.9 Ines 11/18/2018 - 600mg Tablets ER as needed for Senner, DO 02/20/2019 12HR congestion Medications Administered in Office Medication SIG Qnty Indications Ordering Provider Date Depomedrol 40MG Denise Shelton M.D. 04/19/2017 Injection Depomedrol 40MG Anibal Frias MD 08/24/2016 Injection Immunizations CPT Code Status Date Vaccine Reaction Lot # [id number] Given 05/19/2019 Influenza Virus Vaccine, no immediate reaction [id number] Quadrivalent ([id number]), noted. dg Derived From Cell 50945 Given 05/03/2017 Pneumonia Vaccine no immediate reaction, [id number] pt tolerated well 04369 Given 03/29/2017 Influenza Virus Vaccine, no immediate reaction, [id number] Quadrivalent, Split, pt tolerated well Preservative Free Vital Signs Date Vital Result Comment 05/19/2019 4:35pm Height 67 inches 5'7" Weight 254.00 lb Heart Rate 69 /min BP Systolic Sitting 141 mmHg BP Diastolic Sitting 95 mmHg Body Temperature 98.1 F O2 % BldC Oximetry 96 % BMI (Body Mass Index) 39.8 kg/m2 04/17/2019 3:24pm Height 67 inches 5'7" Weight 249.00 lb Heart Rate 69 /min BP Systolic 141 mmHg LA sitting BP Diastolic 96 mmHg LA sitting BP Systolic Recheck 142 mmHg Ra sitting BP Diastolic Recheck 98 mmHg Ra sitting Body Temperature 96.8 F BMI (Body Mass Index) 39.0 kg/m2 Results Test Acquired Date Facility Test Result H/L Range Note Laboratory test 03/31/2019 [facility] C Reactive 1.78 mg/L Normal <8.[address] [place] [address] [phone] Hla B27 03/31/2019 [facility] Hla B27 Positive [address] [place] [address] [phone] Hla B27 Interp See Comment 2 Laboratory 03/31/2019 [facility] Uric Acid 4.8 mg/dL Normal 2.3-6.6 test finding [address] [place] [address] [phone] GC/Chlamydia 02/20/2019 [facility] Chlamydia Negative Negative 3 Amplified Rna [address] [place] [address] Rna [phone] Neisseria gonorrhoeae (GC) Rna Negative Negative Laboratory test 02/20/2019 [facility] Trichomonas Negative Negative [address] [place] [address] [phone] Gardnerella/Yeast: Vaginal Dna SEE RESULT BELOW 5 Laboratory test 02/20/2019 [facility] Hemoglobin A1c 6.1 % High 4.0-5.[address] (Glyco HGB) [place], [place] [id number] [phone] Urinalysis 02/20/2019 [facility] Urine Color Yellow Profile [address] [place] [address] [phone] Urine Appearance Clear Urine Specific [place] 1.018 Normal 1.010-1.030 Urine pH 5.0 Normal 5-9 Urine Urobilinogen Negative Negative Urine Ketones Negative Negative Urine Protein Negative Negative Urine Leukocytes Negative Negative Urine Blood 1+ Abnormal Negative Urine Nitrite Negative Negative Urine Bilirubin Negative Negative Urine Glucose Negative Negative Urine White Blood Cell Absent Absent Urine Red Blood Cell 1+(3-5/hpf) Abnormal Absent Urine Bacteria Absent Absent Urine Squamous Epithelial Cell Present Abnormal Absent Laboratory test 02/20/2019 [facility] Cytology SEE RESULT [address] BELOW [place], [place] [id number] [phone] CBC Auto Diff 12/02/2018 [facility] White Blood 8.2 10^3/uL Normal 3.5-[address] Count 0.8 [place] [address] [phone] Red Blood Count 4.90 10^6/uL High 3.70-4.87 Hemoglobin 15.6 g/dL Normal 12.0-16.0 Hematocrit 46 % Normal 35-47 Mean Corpuscular Volume 94 fL Normal 80-97 Mean Corpuscular Hemoglobin 32 pg High 27-31 Mean Corpuscular HGB Conc 34 g/dL Normal 31-36 Red Cell Distribution Width 15 % Normal 10.5-15 Platelet Count 288 10^3/uL Normal 150-450 Mean Platelet Volume 6.8 fL Low 7.4-10.4 Abs Neutrophils 4.1 10^3/uL Normal 1.5-7.7 Abs Lymphocytes 3.1 10^3/uL Normal 1.0-4.8 Abs Monocytes 0.7 10^3/uL Normal 0-0.8 Abs Eosinophils 0.2 10^3/uL Normal 0-0.6 Abs Basophils 0.1 10^3/uL Normal 0-0.2 Abs Nucleated RBC 0.0 10^3/uL Granulocyte % 50.1 % Lymphocyte % 37.6 % Monocyte % 8.0 % Eosinophil % 2.9 % Basophil % 1.4 % Nucleated Red Blood Cells % 0.1 Inr/Protime 12/02/2018 [facility] Inr 0.83 Normal 0.82-1.[address] [place] [address] [phone] Laboratory test 12/02/2018 [facility] Partial 32.3 Normal 26.0 -36.3 finding [address] [facility] [place] [address] Time PTT [phone] Urinalysis 12/02/2018 [facility] Urine Color Straw Profile [address] [place] [address] [phone] Urine Appearance Clear Urine Specific [place] 1.002 Low 1.010-1.030 Urine pH 7.0 Normal 5-9 Urine Urobilinogen Negative Negative Urine Ketones Negative Negative Urine Protein Negative Negative Urine Leukocytes Negative Negative Urine Blood 1+ Abnormal Negative Urine Nitrite Negative Negative Urine Bilirubin Negative Negative Urine Glucose Negative Negative Urine White Blood Cell Absent Absent Urine Red Blood Cell Trace(0-2/hpf) Absent Urine Bacteria Absent Absent Comp Metabolic 12/02/2018 [facility] Sodium 138 mmol/L Normal 135-145 Panel [facility] [place] [address] [phone] Potassium 4.0 mmol/L Normal 3.5-5.0 Chloride 106 mmol/L Normal 101-111 Co2 Carbon Dioxide 27 mmol/L Normal 22-32 Anion Gap 5 mmol/L Normal 2-11 Glucose 88 mg/dL Normal 70-100 Blood Urea Nitrogen 11 mg/dL Normal 6-24 Creatinine 0.67 mg/dL Normal 0.51-0.95 BUN/Creatinine Ratio 16.4 Normal 8-20 Calcium 9.2 mg/dL Normal 8.6-10.3 Total Protein 6.9 g/dL Normal 6.4-8.9 Albumin 4.2 g/dL Normal 3.2-5.2 Globulin 2.7 g/dL Normal 2-4 Albumin/Globulin Ratio 1.6 Normal 1-3 Total Bilirubin 0.20 mg/dL Normal 0.2-1.0 Alkaline Phosphatase 56 U/L Normal 34-104 Alt 13 U/L Normal 7-52 Ast 12 U/L Low 13-39 Egfr Non- 94.3 >60 Egfr 114.2 >60 9 Laboratory test 12/02/2018 [facility] Magnesium 2.2 mg/dL Normal 1.9-2.[address] [place] [address] [phone] Troponin-I (TnI) 0.00 ng/mL <0.04 10 TSH (Thyroid Stim Horm) 1.72 mcIU/mL Normal 0.34-5.60 1 REFERENCE VALUE Not Applicable 2 HLA-B27 antigen was detected. Approximately 8% of the normal population carries the HLA-B27 antigen. HLA-B27 is present in approximately 89% of patients with ankylosing spondylitis, 79% of patients with Janina's syndrome and 42% of patients with juvenile rheumatoid arthritis. However, lacking other data, it is not diagnostic for these disorders. This test does not differentiate B27 alleles. i.e. B*27:05, B*27:06, etc. ADDITIONAL INFORMATION Method: Flow Cytometry Test Performed by: [address] [address] Interior Wirer: Jorge Nash M.D. Ph.D.; CLIA# [id number] 3 [id number] GC/Chlamydia Source?: Thin Prep Trichomonas Source: Thin Prep 5 SEE RESULT BELOW Name: STEPHANIE OLGUIN : [address]: Ines Thomas DO Acct: [id number] Unit: [id number] AGE: 48 Location: [facility] Re02/20/19 SEX: F Status: REG REF SPEC: [id number] ZOË: 02/20/19-[address]: Ines Thomas DO REQ: [id number] RECD: 02/20/19 STATUS: COMP _ SOURCE: VAGINAL SPDESC: ORDERED: Reynaldo,Yeast DNA COMMENTS: Verbal to ROWAN MEDLEY LPN by [id number] at 0843 on 02/21/19. PT DOES NEED TRICH TESTING. QUERIES: Would you like to order Trichomonas Vaginalis testing? Unknown Procedure Result Reported Site Gardnerella/Yeast: Vaginal DNA Final 02/21/19- 1355 ML Organism 1 Negative Gardnerella Organism 2 Negative Yenny The presence of G. vaginalis, although suggestive, is not diagnostic for bacterial vaginosis. Results should be interpreted in conjuction with other clinical and laboratory data available. Women with vaginal discharge should be evaluated for risk factors of cervicitis and pelvic inflammatory disease, toxic shock syndrome (S.aureus), and if present, evaluated for organisms not included in this assay such as N. gonorrhoeae, C. trachomatis, Mobiluncus, Mycoplasma and/or Prevotella. Mixed infections may occur. The performance of this test on patient specimens collected during or immediately after antimicrobial therapy is unknown. The presence or absence of Yenny species, or G. vaginalis cannot be used as a test for therapeutic success or failure. * - Main Lab . END OF REPORT DEPARTMENT OF PATHOLOGY, [address] [place] [address] Selvin Tong M.D. Director [facility] # [id number] 6 Therapeutic target for the treatment of diabetes mellitus patients is <7% HBA1C, and in selective patients <6.0%. Please refer to [place] [employer] diabetic care guidelines for further information. 7 SEE RESULT BELOW Name: STEPHANIE OLGUIN : [address]: Ines Thomas DO Acct: [id number] Unit: [id number] AGE: 48 Location: [facility] Re02/20/19 SEX: F Status: REG REF SPEC: [id number] ZOË: 02/20/[address] [facility] DR: Ines Thomas DO REQ: [id number] RECD: 02/20/19 STATUS: SOUT _ ORDERED: TP IMAGE ANALYS COMMENTS: [id number] Negative for Intraepithelial lesion or Malignancy A. Ectocervical/Endocervical Specimen Adequacy: Satisfactory of evaluation Transformation zone component not identified Patient Information: HPV: Thin Layer Pap Test w/reflex to high risk HPV RNA testing when ASCUS Actual Specimen Date: 02/20/19 ?: N Post Menopausal?: Y Hysterectomy?: N Previous Abnormal Pap Smears?:Y If Yes, enter Diagnosis: unknown Signed by and Reported on: MADHU Black(ASCP) 1342 This Pap test was evaluated with the assistance of the [employer] Test Imaging System. Due to cytologic findings at the signalman microscope, comprehensive manual rescreening by a Home Service Consultant may be required. The Pap Smear is a screening test designed to aid in the detection of premalignant and malignant conditions of the uterine cervix. It is not a diagnostic procedure and should not be used as the sole means of detecting cervical cancer. Both false- positive and false- negative reports do occur. Depending on your risk status, a Pap smear should be obtained and evaluated every 1-3 years. END OF REPORT DEPARTMENT OF PATHOLOGY, [address] [place] [address] Selvin Tong M.D. Director [facility] # [id number] 8 Standard intensity warfarin therapeutic range: 2.0-3.0 High intensity warfarin therapeutic range: 2.5-3.5 9 Because ethnic data is not always readily [...] 15-29 5 Kidney failure <15 (or dialysis) 10 Troponin-I testing on Plasma Separator Tubes (PST) has a known false positive rate of 0.20-0.40%. All positive troponins reflex immediately to secondary confirmatory testing. Using the [employer] DxI 800 Access Immunoassay systems, the 99th percentile upper reference limit was demonstrated to be < 0.03 ng/mL. Procedures Date Code Description Status 04/02/2019 95490 EKG Tracing & Interpretation Completed 04/01/2019 37451 ECHO Transthoracic, Real-Time 2D With Doppler And Color Completed Flow 04/01/2019 63090 ECHO Transthoracic, Real-Time 2D With Doppler And Color Completed Flow 12/26/2018 62822 Walking Cast Completed Medical Devices Description No Information Available Encounters Type Date Location Provider Dx Diagnosis Office Visit 04/17/2019 [facility] Internal Ines Thomas, I10 Essential ( primary) 3:00p Medicine - Suite DO hypertension R M54.5 Low back pain F17.210 Nicotine dependence, cigarettes, uncomplicated F33.0 Major depressive disorder, recurrent, mild G47.33 Obstructive sleep apnea (adult) (pediatric) G40.89 Other seizures Office Visit 04/02/2019 2:20p [facility] Qutaybeh S. R55 Syncope and Maghaydah, M.D. collapse I10 Essential (primary) hypertension E78.5 Hyperlipidemia, unspecified E66.9 Obesity, unspecified G47.33 Obstructive sleep apnea (adult) (pediatric) F17.210 Nicotine dependence, cigarettes, uncomplicated R06.02 Shortness of breath R94.31 Abnormal electrocardiogram [ECG] [EKG] Office Visit 03/28/2019 4:40p [facility] Internal Ines M54.5 Low back pain Medicine - Senbárbara DO Suite R Office Visit 03/06/2019 1:00p [facility] Internal Aries Morgan MD M54.5 Low back pain Medicine - Suite R Office Visit 02/20/2019 11:40a [facility] Internal Ines I10 Essential (primary ) Medicine - Martha DO hypertension Suite R B07.9 Viral wart, unspecified Z12.4 Encounter for screening for malignant neoplasm of cervix R35.8 Other polyuria M25.552 Pain in left hip N95.1 Menopausal and female climacteric states Office Visit 12/26/2018 9:00a [facility] Rolly Narayan76.61 Achilles at Martir Fountain M.D. tendinitis, right leg Office Visit 12/17/2018 2:40p [facility] Internal Aries Morgan MD R55 Syncope and Medicine - Suite R collapse E11.9 Type 2 diabetes mellitus without complications F17.210 Nicotine dependence, cigarettes, uncomplicated E78.5 Hyperlipidemia, unspecified Office Visit 12/05/2018 8:00a [facility] Narayan76.61 Achilles at Martir Fountain M.D. tendinitis, right leg M76.62 Achilles tendinitis, left leg Office Visit 11/18/2018 2:20p DO Not Use Care Ines J06.9 Acute upper Connections DO Martha [facility] infection, unspecified Assessments Date Code Description Provider 05/19/2019 G40.89 Other seizures Ines Thomas, DO 05/19/2019 M54.5 Low back pain Ines Thomas, DO 05/19/2019 I10 Essential (primary) hypertension Ines Thomas, DO 05/19/2019 F17.210 Nicotine dependence, cigarettes, Ines Thomas DO uncomplicated 05/19/2019 N32.81 Overactive bladder Ines Thomas, DO 04/17/2019 I10 Essential (primary) hypertension Ines Thomas, DO 04/17/2019 M54.5 Low back pain Ines Thomas, DO 04/17/2019 F17.210 Nicotine dependence, cigarettes, Ines Thomas, DO uncomplicated 04/17/2019 F33.0 Major depressive disorder, recurrent, Ines Thomas, DO mild 04/17/2019 G47.33 Obstructive sleep apnea (adult) Ines Thomas, DO (pediatric) 04/17/2019 G40.89 Other seizures Ines Thomas, DO 04/02/2019 R55 Syncope and collapse Edwin Cr M.D. 04/02/2019 I10 Essential (primary) hypertension Edwin Cr M.D. 04/02/2019 E78.5 Hyperlipidemia, unspecified Edwin Cr M.D. 04/02/2019 E66.9 Obesity, unspecified Edwin Cr M.D. 04/02/2019 G47.33 Obstructive sleep apnea (adult) Edwin Cr M.D. (pediatric) 04/02/2019 F17.210 Nicotine dependence, cigarettes, Edwin Cr M.D. uncomplicated 04/02/2019 R06.02 Shortness of breath Edwin Cr M.D. 04/02/2019 R94.31 Abnormal electrocardiogram [ECG] [EKG] Edwin Cr M.D. 04/01/2019 R55 Syncope and collapse Edwin Cr M.D. 04/01/2019 R55 Syncope and collapse [facility] Schedule 04/01/2019 I10 Essential (primary) hypertension [facility] Schedule 03/28/2019 M54.5 Low back pain Ines Thomas, DO 03/06/2019 M54.5 Low back pain Aries Morgan MD 02/20/2019 I10 Essential (primary) hypertension Ines Thomas, DO 02/20/2019 B07.9 Viral wart, unspecified Ines Thomas, DO 02/20/2019 Z12.4 Encounter for screening for malignant Ines Thomas DO neoplasm of cervix 02/20/2019 R35.8 Other polyuria Ines Thomas, 02/20/2019 M25.552 Pain in left hip Ines Thomas, 02/20/2019 N95.1 Menopausal and female climacteric Ines Thomas DO states 12/26/2018 M76.61 Achilles tendinitis, right leg Rolly Fountain M.D. 12/17/2018 R55 Syncope and collapse Aries Morgan MD 12/17/2018 E11.9 Type 2 diabetes mellitus without Aries Morgan MD complications 12/17/2018 F17.210 Nicotine dependence, cigarettes, Aries Morgan MD uncomplicated 12/17/2018 E78.5 Hyperlipidemia, unspecified Aries Morgan MD 12/05/2018 M76.61 Achilles tendinitis, right leg Rolly Fountain M.D. 12/05/2018 M76.62 Achilles tendinitis, left leg Rolly Fountain M.D. 11/18/2018 J06.9 Acute upper respiratory infection, Ines Thomas DO unspecified Plan of Treatment Future Appointment(s):06/27/2019 2:20 pm - Ines Thomas DO at [facility] Internal Medicine - Suite 08/11/2018 10:15 am - Rolly Fountain M.D. at [facility] at [id number]/28/2019 8:30 am - Edwin Cr M.D. at [facility]06/09/2019 10:00 am - Radha Villanueva, N.P. at [facility]05/23/2019 1:30 pm - Nurse Visit cc at [facility]05/22/2019 3 :00 pm - Nurse Visit cc at [facility]06/24/2019 1:00 pm - Odell Aldana M.D. at [facility]05/19/2019 - Ines Thomas, DOG40.89 Other seizuresReferral:Nasir Christy M.D., ZcbtkoclvW69.5 Low back painI10 Essential (primary) hypertensionComments:TAKE TWO LISINOPRIL PER DAY (40MG TOTAL )F17.210 Nicotine dependence, cigarettes, kiuhuljpgpluzK61.81 Overactive bladderNew Medication:Oxybutynin Chloride ER 5 mg - 1 by mouth every day Functional Status Description No Information Available Mental Status Description No Information Available Referrals Refer to Reason for Referral Status Appt Date Nasir Christy M.D. Created [address] [place] [address] [place] [address] [phone] Jazzmine Goldsmith MD evaluate for MAYELA Sent [address] [place] [address] [phone] Odell Aldana MD Sent 06/24/[address] [place] [address] [place] [address] [phone] Vania Powell MD syncope Sent 01/10/[address] [place] [address] [phone]
--- OUTSIDE RECORDS SUMMARY | 2019-05-23 04:46 | XMS REPORT | Continuity of Care Document ---
:1970 External Reference #:[id number] Author Name Edwin Cr M.D. (transmitted by agent of provider Fely Bey) Address [address] [facility] [address] [place] [address] Care Team Providers Name Role Phone Luis Antonio Avila MD - Neurology Care Team Information Handicraft Or Hobby Shop Manager [facility] - Care Team Information Handicraft Or Hobby Shop Manager [facility] - Sleep Disorder Care Team Information Handicraft Or Hobby Shop Manager [phone] Diagnostic Ines Thomas DO - Hospitalist Care Team Information Handicraft Or Hobby Shop Manager [phone] Aries Morgan MD - Hospitalist Care Team Information Handicraft Or Hobby Shop Manager [phone] Problems Active Problems Provider Date Articular cartilage [...] Use Denies Drug Use Smoking Status Reviewed: 04/02/19 Light tobacco smoker (10 or fewer cigarettes/day) Exercise Type/Frequency Exercises regularly Walking Allergies, Adverse Reactions, Alerts Active Allergies Reaction Severity Comments Date Amoxicillin 08/20/2013 Medications Active Medications SIG Qnty Indications Ordering Date Provider Alize 1/2 by mouth in am Unknown 03/31/2019 1mg Tablets and at noon, 1 by mouth at bedtime Hydrocodone-Acetamin take one twice a 60tabs M54.5 Ines Thomas, 2018 ophen day as needed for DO 5-325mg Tablets pain Paroxetine HCL take one tab daily 30tabs N95.1 Ines Thomas, 02/20/2019 10mg DO Tablets Nicotine Apply 1 Patch 28units F17.210 Aries Morgan MD 12/17/2018 14mg/24HR Clean Skin Daily. Patches 24HR Nabumetone one daily 30tabs Rolly Fountain, 12/05/2018 500mg M.D. Tablets True Metrix Meter For blood glucose 1units Aries Morgan MD 04/05/2018 monitoring daily Device True Metrix Self for blood glucose 100units Aries Morgan MD 04/05/2018 Monitoring Blood monitoring, up to Glucose Strips 3 times a day Strips Lancets for use with true 100units Ines Thomas, 04/05/2018 [facility] metrix glucometer DO Metformin HCL take 1 tablet by 60tabs E11.9 Aries Morgan MD 04/04/2018 500mg mouth twice a day Tablets D3 High Potency take one 90caps Aries Morgan MD 10/05/2017 capsule/tablet 1000Unit Capsules daily by mouth Albuterol Sulfate one treatment 90ml J45.20 Jian 03/29/2017 every 4 as needed Shazia Almeida 0.63mg/3ML Nebulizer Gabapentin Take 1 Capsule By 90caps Ines Thomas, 300mg Mouth Three Times DO Capsules A Day Venlafaxine HCL three 75 mg tabs Unknown 75mg at night to equal Tablets 225mg . Indomethacin Take 1 Capsule By 60caps M13.0 Aries Morgan MD 25mg Mouth Twice A Day Capsules as Needed Loratadine Take 1 Tablet By 30tabs Ines Thomas, 10mg Mouth Every Day DO Tablets Lisinopril take 1 tablet by 30tabs Aries Morgan MD 20mg mouth every day Tablets Simvastatin Take 1 Tablet By 30tabs Ines Thomas, 10mg Mouth Everyday AT DO Tablets Bedtime ALL Day Allergy 1 by mouth every Zsofia Panfilo, 10mg day DRIFTMAN Tablets Omeprazole Take 1 Capsule By 30caps Ines Thomas, 20mg Mouth Every Day DO Capsules DR Fluticasone 2 sprays daily in 16gm Deon Monico Propionate each nostril Shazia Faith 50mcg/Act Suspension Ventolin HFA inhale 2 puff(s) 8gm Aries Morgan MD every 4-6 hours by 108(90Base) mcg/Act inhalation route Aerosol as needed. History Medications Hydrocodone-Acetaminophen take one every 45tabs [facility] 03/21/2019 - 5-325mg Tablets 8 hours as DO Martha 03/28/2019 needed for pain Cyclobenzaprine HCL 1 by mouth 90tabs M54.5 Aries Morgan 03/06/2019 - 10mg Tablets three times a 03/28/2019 day Tramadol HCL take every 8 42tabs M54.5 Aries Morgan 03/06/2019 - 50mg Tablets hours as needed 03/28/2019 for pain Imiquimod ( not approved 1units B07.9 [facility] 02/20/2019 - 5% Cream by insurance) DO Martha 04/01/2019 apply to affected area three times per week Tramadol HCL one pill twice 14tabs Rolly 12/26/2018 - 50mg Tablets day for pain Shazia Fountain 02/20/2019 Fluticasone 1 puff twice a 60units [facility] 12/24/2018 - Propionate/Salmeterol Diskus day DO Martha 03/28/2019 100-50mcg/Dose Aerosol Benzonatate take one every 30caps J06.9 [facility] 11/18/2018 - 100mg Capsules 6 hours as DO Martha 02/20/2019 needed for cough Guaifenesin-DM 5 ml as needed 500ml J06.9 [facility] 11/18/2018 - 100-10mg/5ML Syrup for cough DO Martha 02/20/2019 Mucinex take one twice 14tabs J06.9 [facility] 11/18/2018 - 600mg Tablets ER 12HR a day as needed DO Martha 02/20/2019 for congestion Medications Administered in Office Medication SIG Qnty Indications Ordering Provider Date Depomedrol 40MG Denise Shelton M.D. 04/19/2017 Injection Depomedrol 40MG Anibal Frias MD 08/24/2016 Injection Immunizations CPT Code Status Date Vaccine Reaction Lot # [id number] Given 05/03/2017 Pneumonia Vaccine no immediate reaction, [id number] pt tolerated well [id number] Given 03/29/2017 Influenza Virus Vaccine, no immediate reaction, [id number] Quadrivalent, Split, pt tolerated well Preservative Free Vital Signs Date Vital Result Comment 04/02/2019 1:56pm Height 67 inches 5'7" Weight 253.38 lb without shoes Heart Rate 76 /min BP Systolic 136 mmHg Rue (Large cuff) BP Diastolic 100 mmHg Rue (Large cuff) BP Systolic Sitting 134 mmHg Lue BP Diastolic Sitting 98 mmHg Lue BP Systolic Standing 140 mmHg Lue BP Diastolic Standing 100 mmHg Lue BMI (Body Mass Index) 39.7 kg/m2 Ejection Fraction 50%-55% echo 04/01/19 03/28/2019 4:47pm Height 67 inches 5'7" Weight 253.00 lb Heart Rate 68 /min BP Systolic 139 mmHg left arm sitting BP Diastolic 98 mmHg left arm sitting BP Systolic Sitting 146 mmHg left arm BP Diastolic Sitting 97 mmHg left arm Body Temperature 97.7 F O2 % BldC Oximetry 97 % Ra BMI (Body Mass Index) 39.6 kg/m2 Results Test Date Facility Test Result H/L Range Note Xray 03/31/2019 [facility] MRI Lumbar <pending> [address] [place] [address] [phone] Laboratory test 03/31/2019 [facility] C Reactive 1.78 mg/L Normal <8.[address] [place] [address] [phone] Hla B27 <pending> Uric Acid 4.8 mg/dL Normal 2.3-6.6 Xray 03/28/2019 [facility] MRI Hip Left <pending> [address] [place], [place] [id number] [phone] Laboratory 02/20/2019 [facility] Trichomonas Negative Negative 1, [address] [place] [address] [phone] Gardnerella/Yeast: Vaginal Dna SEE RESULT BELOW 3 Laboratory test 02/20/2019 [facility] Hemoglobin A1c 6.1 % High 4.0-5.[address] (Glyco HGB) [place] [address] [phone] Urinalysis 02/20/2019 [facility] Urine Color Yellow [place] [address] [place] [address] [phone] Urine Appearance Clear Urine Specific [place] 1.018 Normal 1.010-1.030 Urine pH 5.0 Normal [...] Urine Squamous Epithelial Cell Present Abnormal Absent GC/Chlamydia 02/20/2019 [facility] Chlamydia Negative Negative Amplified Rna [address] [place] [address] [phone] Neisseria gonorrhoeae (GC) Rna Negative Negative Laboratory test 02/20/2019 [facility] Cytology SEE RESULT [address] [place] [address] [phone] CBC Auto Diff 12/02/2018 [facility] White Blood 8.2 10^3/uL Normal 3.5-[address] Count 0.8 [place] [address] [phone] Red Blood Count 4.90 10^6/uL High 3.70-4.87 [...] Red Blood Cells % 0.1 Inr/Protime 12/02/2018 [facility] Inr 0.83 Normal 0.82-1.[address] [place] [address] [phone] Laboratory test 12/02/2018 [facility] Partial 32.3 Normal 26.0 -36.[address] [place] [address] Time PTT [phone] Urinalysis 12/02/2018 [facility] Urine Color Straw Profile [address] [place] [address] [phone] Urine Appearance Clear Urine Specific [place] 1.002 Low 1.010-1.030 Urine pH 7.0 Normal 5-9 Urine Urobilinogen Negative Negative Urine Ketones Negative Negative Urine Protein Negative Negative Urine Leukocytes Negative Negative Urine Blood 1+ Abnormal Negative Urine Nitrite Negative Negative Urine Bilirubin Negative Negative Urine Glucose Negative Negative Urine White Blood Cell Absent Absent Urine Red Blood Cell Trace(0-2/hpf) Absent Urine Bacteria Absent Absent Comp Metabolic 12/02/2018 [facility] Sodium 138 mmol/L Normal 135-[address] [place] [address] [phone] Potassium 4.0 mmol/L Normal 3.5-5.0 Chloride 106 [...] Egfr Non- 94.3 >60 Egfr 114.2 >60 7 Laboratory test 12/02/2018 [facility] Magnesium 2.2 mg/dL Normal 1.9-2.[address] [place] [address] [phone] Troponin-I (TnI) 0.00 ng/mL <0.04 8 TSH (Thyroid Stim Horm) 1.72 mcIU/mL Normal 0.34-5.60 1 [id number] 2 [id number] GC/Chlamydia Source?: Thin Prep Trichomonas Source: Thin Prep 3 SEE RESULT BELOW Name: STEPHANIE OLGUIN : [address]: Ines Thomas DO Acct: [id number] Unit: [id number] AGE: 48 Location: [facility] Re02/20/19 SEX: F Status: REG REF SPEC: [id number] ZOË: 02/20/[address]: Ines Thomas DO REQ: [id number] RECD: 02/20/19 STATUS: COMP _ SOURCE: VAGINAL SPDESC: ORDERED: Reynaldo,Yeast DNA COMMENTS: Verbal to ROWAN MEDLEY LPN by [id number] at 0843 on 02/21/19. PT DOES NEED [...] test for therapeutic success or failure. * ML - Main Lab . END OF REPORT DEPARTMENT OF PATHOLOGY, [address] [place] [address] Selvin Tong M.D. Director [facility] # [id number] 4 Therapeutic target for the treatment of diabetes mellitus patients is <7% HBA1C, and in selective patients <6.0%. Please refer to [employer] diabetic care guidelines for further information. 5 SEE RESULT BELOW Name: STEPHANIE OLGUIN : [address]: Ines Thomas DO Acct: [id number] Unit: [id number] AGE: 48 Location: [facility] Re02/20/19 SEX: F Status: REG REF SPEC: [id number] ZOË: 02/20/19-[address]: Ines Thomas DO REQ: [id number] RECD: 02/20/19 STATUS: SOUT _ ORDERED: TP IMAGE ANALYS COMMENTS: [id number] Negative for Intraepithelial lesion or Malignancy A. Ectocervical/Endocervical Specimen Adequacy: Satisfactory of evaluation Transformation zone component not identified Patient Information: HPV: Thin Layer Pap Test w/reflex to high risk HPV RNA testing when ASCUS Actual Specimen Date: 02/20/19 ?: N Post Menopausal?: Y Hysterectomy?: N Previous Abnormal Pap Smears?:Y If Yes, enter Diagnosis: unknown Signed by and Reported on: MADHU Black(ASCP) [id number] This Pap test was evaluated with the assistance of the ZadbyPrep Test Imaging System. Due to cytologic findings at the propulsion machinery service engineer microscope, comprehensive manual rescreening by a Detacker may be required. The Pap Smear is [...] years. END OF REPORT DEPARTMENT OF PATHOLOGY, [address] [place] [address] Selvin Tong M.D. Director [facility] # [id number] 6 Standard intensity warfarin therapeutic range: 2.0-3.0 High intensity warfarin therapeutic range: 2.5-3.5 7 Because ethnic data is not always readily [...] 15-29 5 Kidney failure <15 (or dialysis) 8 Troponin-I testing on Plasma Separator Tubes (PST) has a known false positive rate of 0.20-0.40%. All positive troponins reflex immediately to secondary confirmatory testing. Using the Xtalic DxI 800 Access Immunoassay systems, the 99th percentile upper reference limit was demonstrated to be < 0.03 ng/mL. Procedures Date Code Description Status 04/02/2019 73108 EKG Tracing & Interpretation Completed 04/01/2019 50402 ECHO Transthoracic, Real-Time 2D With Doppler And Color Completed Flow 12/26/2018 58200 Walking Cast Completed Medical Devices Description No Information Available Encounters Type Date Location Provider Dx Diagnosis Office Visit 03/28/2019 [facility] Ines Thomas, M54.5 Low back pain 4:40p Medicine - Suite DO R Office Visit 03/06/2019 [facility] Internal Aries Morgan MD M54.5 Low back pain 1:00p Medicine - Suite R Office Visit 02/20/2019 [facility] Internal Ines Thomas, I10 Essential ( primary) 11:40a Medicine - Suite DO hypertension R B07.9 Viral wart, unspecified Z12.4 Encounter for screening for malignant neoplasm of cervix R35.8 Other polyuria M25.552 Pain in left hip N95.1 Menopausal and female climacteric states Office Visit 12/26/2018 9:00a Orthopedic Rolly Narayan76.61 [facility] tendinitis, right C.M.A. leg Office Visit 12/17/2018 2:40p [facility] Internal Aries Morgan MD R55 Syncope and Medicine - Suite collapse R E11.9 Type 2 diabetes mellitus without complications F17.210 Nicotine dependence, cigarettes, uncomplicated E78.5 Hyperlipidemia, unspecified Office Visit 12/05/2018 8:00a Orthopedic Rolly [id number].61 [facility] tendinitis, right C.M.A. leg M76.62 Achilles tendinitis, left leg Office Visit 11/18/2018 2:20p DO Not Use Care Ines J06.9 Acute upper Connections DO Martha [facility] infection, unspecified Assessments Date Code Description Provider 04/02/2019 R55 Syncope and collapse Edwin Cr M.D. 04/02/2019 I10 Essential (primary) hypertension Edwin Cr M.D. 04/02/2019 E78.5 Hyperlipidemia, unspecified Edwin Cr M.D. 04/02/2019 E66.9 Obesity, unspecified Edwin Cr M.D. 04/02/2019 G47.33 Obstructive sleep apnea (adult) Edwin Cr M.D. (pediatric) 04/02/2019 F17.210 Nicotine dependence, cigarettes, Edwin Cr M.D. uncomplicated 04/02/2019 R06.02 Shortness of breath Helene Bosch.D. 04/01/2019 R55 Syncope and collapse [place] [facility] Schedule 04/01/2019 I10 Essential (primary) hypertension [place] [facility] Schedule 03/28/2019 M54.5 Low back pain Ines Thomas, DO 03/06/2019 M54.5 Low back pain Aries Morgan MD 02/20/2019 I10 Essential (primary) hypertension Ines Thomas, DO 02/20/2019 B07.9 Viral wart, unspecified Ines Senner, DO 02/20/2019 Z12.4 Encounter for screening for malignant Ines Thomas, DO neoplasm of cervix 02/20/2019 R35.8 Other polyuria Ines Thomas, DO 02/20/2019 M25.552 Pain in left hip Ines Thomas, DO 02/20/2019 N95.1 Menopausal and female climacteric Ines Thomas, DO states 12/26/2018 M76.61 Achilles tendinitis, right [...] 11/18/2018 J06.9 Acute upper respiratory infection, Ines Thomas, DO unspecified Plan of Treatment Future Appointment(s):05/05/2019 1:30 pm - Radha Villanueva N.PHayder at [facility]04/23/2019 8:30 am - Edwin Cr M.D. at [facility]04/17/2019 10:30 am - Nurse Visit cc at [facility]04/16/2019 12 :00 pm - Nurse Visit cc at [facility]04/24/2019 2:30 pm - Jazzmine Goldsmith MD at [facility]04/02/2019 - Edwin Cr M.D.R55 Syncope and collapseNew Orders:24 hour holter monitor, Scheduled: 03/27Follow up:ov TAILING HAND 4-7 wks to discuss [id number] Essential (primary) nebnezgjqbuyA26.5 Hyperlipidemia, mwzbnkeubzpE44.9 Obesity, dkmiwrafdbnA59.33 Obstructive sleep apnea (adult) (pediatric)F17.210 Nicotine dependence, cigarettes, pjafsqeihqtcvX20.02 Shortness of breathNew Orders:Lexiscan Nuclear Myoview, Scheduled: 04/23/19 Functional Status Description No Information Available Mental Status Description No Information Available Referrals Refer to Reason for Referral Status Appt Date Vania Powell MD syncope Sent 01/10/[address] [place] [address] [phone]
--- OUTSIDE RECORDS SUMMARY | 2019-05-23 04:46 | XMS REPORT ---
:1970 Author Name Janie Maurice Address [facility] [address] [place] [address] Care Team Providers Name Role Phone Janie Maurice Unavailable Unavailable Kaylan Davis Unavailable Unavailable Allergies, Adverse Reactions, Alerts Allergy Code CodeSystem Reaction Severity Status Substance RxNorm Medications Medication Medication Medication Start Route Dose Status Fill Code CodeSystem Date Instructions RxNorm NoCurrentDosage No NoCurrentFrequency Longer Active clonazepam RxNorm 2019-0 oral 0.5 mg tablet No for 30 3-04 Longer day(s) Active venlafaxine RxNorm 2019-0 oral 150 mg No for 30 3-04 capsule,extended Longer day(s) release 24hr Active venlafaxine RxNorm 2019-0 oral 75 mg No for 30 3-04 capsule,extended Longer day(s) release 24hr Active mirtazapine RxNorm 2019-0 oral 15 mg tablet No for 30 5-09 Longer day(s) Active clonazepam RxNorm 2019-0 oral 1 mg tablet No for 30 5-20 Longer day(s) Active mirtazapine RxNorm 2019-0 oral 30 mg tablet No for 30 5-20 Longer day(s) Active venlafaxine RxNorm 2019-0 oral 75 mg No for 30 5-20 capsule,extended Longer day(s) release 24hr Active venlafaxine RxNorm 2019-0 oral 150 mg No for 30 5-20 capsule,extended Longer day(s) release 24hr Active clonazepam RxNorm 2019-0 oral 1 mg tablet No for 30 6-20 Longer day(s) Active gabapentin RxNorm 2019-0 oral 300 mg capsule Active for 30 7-24 day(s) clonazepam RxNorm 2019-0 oral 1 mg tablet No for 14 7-24 Longer day(s) Active venlafaxine RxNorm 2019-0 oral 150 mg No for 30 5-20 capsule,extended Longer day(s) release 24hr Active venlafaxine RxNorm 2019-0 oral 75 mg No for 30 3-04 capsule,extended Longer day(s) release 24hr Active venlafaxine RxNorm 2019-0 oral 75 mg Active for 30 8-27 capsule,extended day(s) release 24hr venlafaxine RxNorm 2019-0 oral 150 mg Active for 30 8-27 capsule,extended day(s) release 24hr Hospital Discharge Medications Medication Direction Start Date Status Indications Fill Instuctions No Discharge Medication Problems Problem Name Code CodeSystem Start Date End Date Status SNOMED-CT 2018-09-27 Active Laboratory Values/Results Test Test Code Code System Actual Result Date LOINC Procedures Procedure Name Code CodeSystem Target Site Date of Procedure SNOMED-CT () 2018-10-31 SNOMED-CT () 2018-11-08 SNOMED-CT () 2018-11-28 SNOMED-CT () 2018-11-25 SNOMED-CT () 2018-11-25 SNOMED-CT () 2018-12-18 SNOMED-CT () 2019-01-01 SNOMED-CT () 2019-01-01 SNOMED-CT () 2019-01-16 SNOMED-CT () 2019-01-22 SNOMED-CT () 2019-01-29 SNOMED-CT () 2019-03-14 SNOMED-CT () 2019-03-14 SNOMED-CT () 2019-03-24 Encounter Diagnosis Code CodeSystem Description Date Finding Finding Code Status 84071 CPT Non-Billable 2019-03-09 - SNOMED-CT Active 6 Vital Signs Vitals Date Value Immunizations Vaccine Name Vaccine Code CodeSystem Date Status Social History Element Description Start Date End Date Code CodeSystem Description SNOMED-CT Hospital Discharge Instructions Reason For Referral
--- OUTSIDE RECORDS SUMMARY | 2019-05-23 04:46 | XMS REPORT | Continuity of Care Document ---
:1970 External Reference #:[id number] Author Name Ines Thomas DO (transmitted by agent of provider Comfort Hdez) Address [address] [place] [id number] Care Team Providers Name Role Phone Luis Antonio Avila MD - Neurology Care Team Information Plasma Processing Technician [facility] - Care Team Information Plasma Processing Technician [phone] [facility] - Sleep Disorder Care Team Information Plasma Processing Technician [phone] Diagnostic Ines Thomas DO - Hospitalist Care Team Information Plasma Processing Technician [phone] Aries Morgan MD - Hospitalist Care Team Information Plasma Processing Technician [phone] Problems Active Problems Provider Date Articular cartilage [...] Medications SIG Qnty Indications Ordering Date Provider Klonopin 1/2 by mouth in am Unknown 03/31/2019 [...] use with true 100units Ines Thomas, 04/05/2018 [facility] glucometer DO Metformin HCL take 1 tablet by 60tabs E11.9 Aries Morgan MD 04/04/2018 500mg mouth twice a day Tablets D3 High Potency take one 90caps Aries Morgan MD 10/05/2017 capsule/tablet 1000Unit Capsules daily by mouth Albuterol Sulfate one treatment 90ml J45.20 [place] 03/29/2017 every 4 as needed Shazia Almeida [...] by mouth every Zsofia Panfilo, 10mg day PUBLIC RELATIONS MANAGER Tablets Omeprazole Take 1 Capsule By 30caps Ines Thomas, 20mg Mouth Every Day DO Capsules DR Fluticasone 2 sprays daily in 16gm Deon Marc Propionate each nostril Shazia Faith 50mcg/Act Suspension Ventolin HFA inhale 2 puff(s) 8gm Aries Morgan MD every 4-6 hours by 108(90Base) mcg/Act inhalation route Aerosol as needed. History Medications Hydrocodone-Acetaminophen take one every 45tabs Ines 03/21/2019 - 5-325mg Tablets 8 hours as DO Martha 03/28/2019 needed for pain Cyclobenzaprine HCL 1 by mouth 90tabs M54.5 Aries Morgan 03/06/2019 - 10mg Tablets three times a 03/28/2019 day Tramadol HCL take every 8 42tabs M54.5 Aries Morgan 03/06/2019 - 50mg Tablets hours as needed 03/28/2019 for pain Imiquimod ( not approved 1units B07.9 Ines 02/20/2019 - 5% Cream by insurance) DO Martha 04/01/2019 apply to affected area three times per week Tramadol HCL one pill twice 14tabs Rolly 12/26/2018 - 50mg Tablets day for pain Shazia Fountain 02/20/2019 Fluticasone 1 puff twice a 60units Ines 12/24/2018 - Propionate/Salmeterol Diskus day DO Martha 03/28/2019 100-50mcg/Dose Aerosol Benzonatate take one every 30caps J06.[address] [facility] 11/18/2018 - 100mg Capsules 6 hours as DO Martha 02/20/2019 needed for cough Guaifenesin-DM 5 ml as needed 500ml J06.[address] [facility] 11/18/2018 - 100-10mg/5ML Syrup for cough DO Martha 02/20/2019 Mucinex take one twice 14tabs J06.[address] [facility] 11/18/2018 - 600mg Tablets ER 12HR a day as needed DO Martha 02/20/2019 for congestion Medications Administered in Office Medication SIG Qnty Indications Ordering Provider Date Depomedrol 40MG Denise Shelton M.D. 04/19/2017 Injection Depomedrol 40MG Anbial Frias MD 08/24/2016 Injection Immunizations CPT Code Status Date Vaccine Reaction Lot # [id number] Given 05/03/2017 Pneumonia Vaccine no immediate reaction, [id number] pt tolerated well 11386 Given 03/29/2017 Influenza Virus Vaccine, no immediate [...] Result H/L Range Note Laboratory test 03/31/2019 [facility] C Reactive 1.78 mg/L Normal <8.[address] [place] [address] [phone] Hla B27 <pending> Uric Acid 4.8 mg/dL Normal 2.3-6.6 GC/Chlamydia 02/20/2019 [facility] Chlamydia Negative Negative [address] [place] [address] [phone] Neisseria gonorrhoeae (GC) Rna Negative Negative Laboratory test 02/20/2019 [facility] Trichomonas Negative Negative [address] [place] [address] [phone] Gardnerella/Yeast: Vaginal Dna SEE RESULT BELOW 3 Laboratory test 02/20/2019 [facility] Hemoglobin A1c 6.1 % High 4.0-5.[address] (Glyco HGB) [place] [address] [phone] Urinalysis 02/20/2019 [facility] Urine Color Yellow Profile [address] [place] [address] [phone] Urine Appearance Clear Urine Specific [place] 1.018 Normal 1.010-1.030 Urine pH 5.0 Normal [...] Cell Present Abnormal Absent Laboratory test 02/20/2019 [facility] Cytology SEE RESULT [address] [place] [address] [phone] CBC Auto Diff 12/02/2018 [facility] White Blood 8.2 10^3/uL Normal 3.5-[address] Count 0.8 [place] [address] [phone] Red Blood Count 4.90 10^6/uL High 3.70-4.87 [...] Red Blood Cells % 0.1 Inr/Protime 12/02/2018 [facility] Inr 0.83 Normal 0.82-1.[address] [place] [address] [phone] Laboratory test 12/02/2018 [facility] Partial 32.3 Normal 26.0 -36.[address] [place] [address] Time PTT [phone] Urinalysis 12/02/2018 [facility] Urine Color Straw Profile [address] [place] [address] [phone] Urine Appearance Clear Urine Specific [place] 1.002 Low 1.010-1.030 Urine pH 7.0 Normal 5-9 Urine Urobilinogen Negative Negative Urine Ketones Negative Negative Urine Protein Negative Negative Urine Leukocytes Negative Negative Urine Blood 1+ Abnormal Negative Urine Nitrite Negative Negative Urine Bilirubin Negative Negative Urine Glucose Negative Negative Urine White Blood Cell Absent Absent Urine Red Blood Cell Trace(0-2/hpf) Absent Urine Bacteria Absent Absent Comp Metabolic 12/02/2018 [facility] Sodium 138 mmol/L Normal 135-145 Panel [address] [place] [address] [phone] Potassium 4.0 mmol/L Normal 3.5-5.0 Chloride 106 [...] Egfr 114.2 >60 7 Laboratory test 12/02/2018 [facility] Magnesium 2.2 mg/dL Normal 1.9-2.[address] [place] [address] [phone] Troponin-I (TnI) 0.00 ng/mL <0.04 8 TSH (Thyroid Stim Horm) 1.72 mcIU/mL Normal 0.34-5.60 1 [id number] 2 [id number] GC/Chlamydia Source?: Thin Prep Trichomonas Source: Thin Prep 3 SEE RESULT BELOW Name: STEPHANIE OLGUIN : [address]: Ines Thomas DO Acct: [id number] Unit: [id number] AGE: 48 Location: [facility] Re02/20/19 SEX: F Status: REG REF SPEC: [id number] ZOË: 02/20/19-[address]: Ines Thomas DO REQ: [id number] RECD: 02/20/19 STATUS: COMP _ SOURCE: VAGINAL SPDESC: ORDERED: Reynaldo,Yeast DNA COMMENTS: Verbal to ROWAN MEDLEY LPN by [id number] at 0843 on 02/21/19. PT DOES NEED [...] . END OF REPORT DEPARTMENT OF PATHOLOGY, [address] [place] [address] Selvin Tong M.D. Director [facility] # [id number] 4 Therapeutic target for the treatment of diabetes mellitus patients is <7% HBA1C, and in selective patients <6.0%. Please refer to [place] [employer] diabetic care guidelines for further information. 5 SEE RESULT BELOW Name: STEPHANIE OLGUIN : [address]: Ines Thomas DO Acct: [id number] Unit: [id number] AGE: 48 Location: [facility] Re02/20/19 SEX: F Status: REG REF SPEC: [id number] ZOË: 02/20/19-[address] [facility] [address]: Ines Thomas DO REQ: [id number] RECD: 02/20/19 STATUS: SOUT _ ORDERED: TP IMAGE ANALYS COMMENTS: [id number] Negative for Intraepithelial lesion or Malignancy A. [...] was evaluated with the assistance of the [employer] V[employer] Test Imaging System. Due to cytologic findings at the business center manager microscope, comprehensive manual rescreening by a Garden Worker may be required. The Pap Smear is [...] years. END OF REPORT DEPARTMENT OF PATHOLOGY, [address] [place] [address] Selvin Tong M.D. Director [facility] # [id number] 6 Standard intensity warfarin therapeutic range: 2.0-3.0 [...] immediately to secondary confirmatory testing. Using the [employer] DxI 800 Access Immunoassay systems, the 99th percentile upper reference limit was demonstrated to be < 0.03 ng/mL. Procedures Date Code Description Status 04/02/2019 46333 EKG Tracing & Interpretation Completed 04/01/2019 50998 ECHO Transthoracic, Real-Time 2D With Doppler And Color Completed Flow 04/01/2019 49676 ECHO Transthoracic, Real-Time 2D With Doppler And Color Completed Flow 12/26/2018 83383 Walking Cast Completed Medical Devices Description No Information Available Encounters Type Date Location Provider Dx Diagnosis Office Visit 03/28/2019 [facility] Ines Thomas M54.5 Low back pain 4:40p Medicine - Suite DO R Office Visit 03/06/2019 [facility] Aries Morgan MD M54.5 Low back pain 1:00p Medicine - Suite R Office Visit 02/20/2019 [facility] Ines Thomas, I10 Essential ( primary) 11:40a Medicine - Suite DO hypertension R B07.9 Viral wart, unspecified Z12.4 Encounter for screening for malignant neoplasm of cervix R35.8 Other polyuria M25.552 Pain in left hip N95.1 Menopausal and female climacteric states Office Visit 12/26/2018 9:00a [facility] Rolly M76.61 [facility] Fountain M.D. tendinitis, right leg Office Visit 12/17/2018 2:40p [facility] Internal Aries Morgan MD R55 Syncope and Medicine - Suite R collapse E11.9 Type 2 diabetes mellitus without complications F17.210 Nicotine dependence, cigarettes, uncomplicated E78.5 Hyperlipidemia, unspecified Office Visit 12/05/2018 8:00a [facility] Rolly Narayan76.61 [facility] at [facility] Fountain M.D. tendinitis, right leg M76.62 Achilles tendinitis, left leg Office Visit 11/18/2018 2:20p DO Not Use Care Ines J06.9 Acute upper Connections DO [facility] infection, unspecified Assessments Date Code Description [...] R06.02 Shortness of breath Edwin Cr M.D. 04/01/2019 R55 Syncope and collapse Edwin Cr M.D. 04/01/2019 R55 Syncope and collapse [facility] Schedule 04/01/2019 I10 Essential (primary) hypertension [facility] Schedule 03/28/2019 M54.5 Low back pain Ines Thomas DO 03/06/2019 M54.5 Low back pain Aries [...] J06.9 Acute upper respiratory infection, Ines Thomas, unspecified Plan of Treatment Future Appointment(s):04/11/2019 3:00 pm - Nurse Visit [place] at [facility] Internal Medicine - Suite R1 1:30 pm - Radha Villanueva N.P. at [facility]04/23/2019 8:30 am - Edwin Cr M.D. at [facility]04/17/2019 10:30 am - Nurse Visit cc at [facility]04/16/2019 12 :00 pm - Nurse Visit cc at [facility]04/24/2019 2:30 pm - Jazzmine Goldsmith MD at [facility]12/21/2017 - Jose Whittaker, FNPZ00.01 Encounter for general adult medical examination with abnormal gixmpzxvX52.01 Impaired fasting fpwhzvkJ00.5 Hyperlipidemia, iyzkdukoccxA95 Essential (primary) ewrihrtmdrviD29.9 Obesity, ckwoxeyjaotJ70.9 Hypothyroidism, nxhhgdxyyoxT27.33 Obstructive sleep apnea (adult) (pediatric)F17.210 Nicotine dependence, cigarettes, uncomplicated Functional Status Description No Information Available Mental Status Description No Information Available Referrals Refer to Reason for Referral Status Appt Date Vania Powell MD syncope Sent 01/10/[address] [place] [address] [phone]
--- OUTSIDE RECORDS SUMMARY | 2019-05-23 04:46 | XMS REPORT | Continuity of Care Document ---
:1970 External Reference #:[id number] Author Name Ines Thomas DO (transmitted by agent of provider Vida Pruitt) Address [address] [place] [address] Care Team Providers Name Role Phone Luis Antonio Avila MD - Neurology Care Team Information Special Service Representative [facility] - Care Team Information Special Service Representative [facility] - Sleep Disorder Care Team Information Special Service Representative Diagnostic Ines Thomas DO - Hospitalist Care Team Information Special Service Representative Aries Morgan MD - Hospitalist Care Team Information Special Service Representative [phone] Problems Active Problems Provider Date Articular cartilage [...] Use Denies Drug Use Smoking Status Reviewed: 04/17/19 Light tobacco smoker (10 or fewer cigarettes/day) Exercise Type/Frequency Exercises regularly Walking Allergies, Adverse Reactions, Alerts Active Allergies Reaction Severity Comments Date Amoxicillin 08/20/2013 Medications Active Medications SIG Qnty Indications Ordering Date Provider Paroxetine HCL take one tab daily 60tabs N95.1 Ines Thomas, 04/17/2019 20mg for two weeks and DO Tablets if symptoms still uncontrolled, can double to 40mg daily Lisinopril 2 by mouth every 60tabs I10 Ines Thomas, 04/17/2019 20mg day DO Tablets Klonopin 1/2 by mouth in am Unknown 03/31/2019 1mg Tablets and at noon, 1 by mouth at bedtime Hydrocodone-Acetamin take one twice a 60tabs M54.5 Ines Thomas, 2018 ophen day as needed for DO 5-325mg Tablets pain Nicotine Apply 1 Patch [...] use with true 100units Ines Thomas, 04/05/2018 [facility] [place]com[place] Metformin HCL Take 1 Tablet By 60tabs E11.9 Aries Morgan MD 04/04/2018 500mg Mouth Twice A Day Tablets D3 High Potency take one 90caps Aries Morgan MD 10/05/2017 capsule/tablet 1000Unit Capsules daily by mouth Albuterol Sulfate one treatment 90ml J45.20 [place] 03/29/2017 every 4 as needed Shazia Almeida [...] Thomas, 10mg Mouth Every Day DO Tablets Simvastatin Take 1 Tablet By 30tabs Ines Thomas, 10mg Mouth Everyday AT DO Tablets Bedtime ALL Day Allergy 1 by mouth every Zsofia Panfilo, 10mg day [employer] Tablets Omeprazole Take 1 Capsule By 30caps Ines Thomas, 20mg Mouth Every Day DO Capsules DR Fluticasone 2 sprays daily in 16gm Deon Monico Propionate each nostril Shazia Faith 50mcg/Act Suspension Ventolin HFA inhale 2 puff(s) 8gm Aries Morgan MD every 4-6 hours by 108(90Base) mcg/Act inhalation route Aerosol as needed. History Medications Hydrocodone-Acetaminophen take one every 45tabs [facility] 03/21/2019 - 5-325mg Tablets 8 hours as Senbárbara, DO 03/28/2019 needed for pain Cyclobenzaprine HCL 1 by mouth 90tabs M54.5 Aries Morgan 03/06/2019 - 10mg Tablets three times a 03/28/2019 day Tramadol HCL take every 8 42tabs M54.5 Aries Morgan, 03/06/2019 - 50mg Tablets hours as needed 03/28/2019 for pain Imiquimod ( not approved 1units B07.9 [facility] 02/20/2019 - 5% Cream by insurance) Senner, DO 04/01/2019 apply to affected area three times per week Paroxetine HCL take one tab 30tabs N95.1 [facility] 02/20/2019 - 10mg Tablets daily Senner, DO 04/17/2019 Tramadol HCL one pill twice 14tabs Rolly 12/26/2018 - 50mg Tablets day for pain Shazia Fountain 02/20/2019 Fluticasone 1 puff twice a 60units [facility] 12/24/2018 - Propionate/Salmeterol Diskus day Senner, DO 03/28/2019 100-50mcg/Dose Aerosol Benzonatate take one every 30caps J06.9 [facility] 11/18/2018 - 100mg Capsules 6 hours as Martha, DO 02/20/2019 needed for cough Guaifenesin-DM 5 ml as needed 500ml J06.9 [facility] 11/18/2018 - 100-10mg/5ML Syrup for cough [facility] 02/20/2019 Mucinex take one twice 14tabs J06.9 [facility] 11/18/2018 - 600mg Tablets ER 12HR a day as needed Senner, DO 02/20/2019 for congestion Medications Administered in Office Medication SIG Qnty Indications Ordering Provider Date Depomedrol 40MG Denise Shelton M.D. 04/19/2017 Injection Depomedrol 40MG Anibal Frias MD 08/24/2016 Injection Immunizations CPT Code Status Date Vaccine Reaction Lot # [id number] Given 05/03/2017 Pneumonia Vaccine no immediate reaction, [id number] pt tolerated well 84910 Given 03/29/2017 Influenza Virus Vaccine, no immediate reaction, [id number] Quadrivalent, Split, pt tolerated well Preservative Free Vital Signs Date Vital Result Comment 04/17/2019 3:24pm Height 67 inches 5'7" Weight 249.00 lb Heart Rate 69 /min BP Systolic 141 mmHg LA sitting BP Diastolic 96 mmHg LA sitting BP Systolic Recheck 142 mmHg Ra sitting BP Diastolic Recheck 98 mmHg Ra sitting Body Temperature 96.8 F BMI (Body Mass Index) 39.0 kg/m2 04/02/2019 1:56pm Height 67 inches 5'7" Weight [...] 39.7 kg/m2 Ejection Fraction 50%-55% echo 04/01/19 Results Test Date Facility Test Result H/L Range Note Laboratory test 03/31/2019 [facility] C Reactive 1.78 mg/L Normal <8.[address] [place] [address] [phone] Hla B27 03/31/2019 [facility] Hla B27 Positive [address] [place] [address] [phone] Hla B27 Interp See Comment 2 Laboratory 03/31/2019 [facility] Uric Acid 4.8 mg/dL Normal 2.3-6.[address] [place] [address] [phone] GC/Chlamydia 02/20/2019 [facility] Chlamydia Negative Negative [address] [place] [address] Rna [phone] Neisseria gonorrhoeae (GC) Rna Negative Negative Laboratory test 02/20/2019 [facility] Trichomonas Negative Negative [address] [place] [address] [phone] Gardnerella/Yeast: Vaginal Dna SEE RESULT BELOW 5 Laboratory test 02/20/2019 [facility] Hemoglobin A1c 6.1 % High 4.0-5.[address] (Glyco HGB) [place] [address] [phone] Urinalysis 02/20/2019 [facility] Urine Color Yellow Profile [address] [place] [address] [phone] Urine Appearance Clear Urine Specific [place] 1.018 Normal 1.010-1.030 Urine pH 5.0 Normal [...] Cell Present Abnormal Absent Laboratory test 02/20/2019 [facility] Cytology SEE RESULT [address] [place] [address] [phone] CBC Auto Diff 12/02/2018 [facility] White Blood 8.2 10^3/uL Normal 3.5-[address] Count 0.8 [place] [address] [phone] Red Blood Count 4.90 10^6/uL High 3.70-4.87 [...] Red Blood Cells % 0.1 Inr/Protime 12/02/2018 [facility] Inr 0.83 Normal 0.82-1.[address] [place] [address] [phone] Laboratory test 12/02/2018 [facility] Partial 32.3 Normal 26.0 -36.[address] [place] [address] Time PTT [phone] Urinalysis 12/02/2018 [facility] Urine Color Straw Profile [address] [place] [address] [phone] Urine Appearance Clear Urine Specific [place] 1.002 Low 1.010-1.030 Urine pH 7.0 Normal 5-9 Urine Urobilinogen Negative Negative Urine Ketones Negative Negative Urine Protein Negative Negative Urine Leukocytes Negative Negative Urine Blood 1+ Abnormal Negative Urine Nitrite Negative Negative Urine Bilirubin Negative Negative Urine Glucose Negative Negative Urine White Blood Cell Absent Absent Urine Red Blood Cell Trace(0-2/hpf) Absent Urine Bacteria Absent Absent Comp Metabolic 12/02/2018 [facility] Sodium 138 mmol/L Normal 135-145 [address] [place] [address] [phone] Potassium 4.0 mmol/L Normal 3.5-5.0 Chloride 106 [...] Egfr 114.2 >60 9 Laboratory test 12/02/2018 [facility] Magnesium 2.2 mg/dL Normal 1.9-2.[address] [place] [address] [phone] Troponin-I (TnI) 0.00 ng/mL <0.04 10 TSH [...] INFORMATION Method: Flow Cytometry Test Performed by: [place] [address] Co Founder And Ceo: Jorge Nash M.D. Ph.D.; CLIA# [id number] 3 [id number] 4 [id number] GC/Chlamydia Source?: Thin Prep Trichomonas Source: Thin Prep 5 SEE RESULT BELOW Name: STEPHANIE OLGUIN : [address]: Ines Thomas DO Acct: [id number] Unit: [id number] AGE: 48 Location: [facility] Re02/20/19 SEX: F Status: REG REF SPEC: [id number] ZOË: 02/20/19-[address]: Ines Thomas DO REQ: [id number] RECD: 02/20/19 STATUS: COMP _ SOURCE: VAGINAL SPDESC: ORDERED: Reynaldo,Yeast DNA COMMENTS: Verbal to ROWAN MEDLEY LPN by [id number] at 0843 on 02/21/19. PT DOES NEED [...] . END OF REPORT DEPARTMENT OF PATHOLOGY, [address] [place] [address] Selvin Tong M.D. Director [facility] # [id number] 6 Therapeutic target for the treatment of diabetes mellitus patients is <7% HBA1C, and in selective patients <6.0%. Please refer to [employer] diabetic care guidelines for further information. 7 SEE RESULT BELOW Name: STEPHANIE OLGUIN : [address]: Ines Thomas DO Acct: [id number] Unit: [id number] AGE: 48 Location: [facility] Re02/20/19 SEX: F Status: REG REF SPEC: [id number] ZOË: 02/20/19-[address]: Ines Thomas DO REQ: [id number] RECD: 02/20/19 STATUS: SOUT _ ORDERED: TP IMAGE ANALYS COMMENTS: [id number] Negative for Intraepithelial lesion or Malignancy A. Ectocervical/Endocervical Specimen Adequacy: Satisfactory of evaluation Transformation zone component not identified Patient Information: HPV: Thin Layer Pap Test w/reflex to high risk HPV RNA testing when ASCUS Actual Specimen Date: 02/20/19 ?: N Post Menopausal?: Y Hysterectomy?: N Previous Abnormal Pap Smears?:Y If Yes, enter Diagnosis: unknown Signed by and Reported on: MADHU Black(ASCP) 4810 This Pap test was evaluated with the assistance of the [employer] Test Imaging System. Due to cytologic findings at the pharmaceutical development technician microscope, comprehensive manual rescreening by a Health Safety Specialist may be required. The Pap Smear is [...] years. END OF REPORT DEPARTMENT OF PATHOLOGY, [address] [place] [address] Selvin Tong M.D. Director [facility] # [id number] Standard intensity warfarin therapeutic range: 2.0-3.0 [...] immediately to secondary confirmatory testing. Using the [employer] Access Immunoassay systems, the 99th percentile upper reference limit was demonstrated to be < 0.03 ng/mL. Procedures Date Code Description Status 04/02/2019 60040 EKG Tracing & Interpretation Completed 04/01/2019 05537 ECHO Transthoracic, Real-Time 2D With Doppler And Color Completed Flow 04/01/2019 22008 ECHO Transthoracic, Real-Time 2D With Doppler And Color Completed Flow 12/26/2018 92011 Walking Cast Completed Medical Devices Description No Information Available Encounters Type Date Location Provider Dx Diagnosis Office Visit 04/17/2019 [facility] Internal Ines Thomas, I10 Essential ( primary) 3:00p Medicine - Suite DO hypertension R M54.5 Low back pain F17.210 Nicotine dependence, cigarettes, uncomplicated F33.0 Major depressive disorder, recurrent, mild G47.33 Obstructive sleep apnea (adult) (pediatric) G40.89 Other seizures Office Visit 04/02/2019 2:20p [facility] Edwin Tang R55 Syncope and Shazia Cr collapse I10 Essential (primary) hypertension E78.5 Hyperlipidemia, unspecified E66.9 Obesity, unspecified G47.33 Obstructive sleep apnea (adult) (pediatric) F17.210 Nicotine dependence, cigarettes, uncomplicated R06.02 Shortness of breath R94.31 Abnormal electrocardiogram [ECG] [EKG] Office Visit 03/28/2019 4:40p [facility] Internal Ines M54.5 Low back pain Medicine - Senner, DO [address] Office Visit 03/06/2019 1:00p [facility] Internal Aries Morgan MD M54.5 Low back pain Medicine - Suite R Office Visit 02/20/2019 11:40a [facility] Internal Ines I10 Essential (primary ) Medicine - DO Martha hypertension [address] B07.9 Viral wart, unspecified Z12.4 Encounter for screening for malignant neoplasm of cervix R35.8 Other polyuria M25.552 Pain in left hip N95.1 Menopausal and female climacteric states Office Visit 12/26/2018 9:00a [facility] Rolly M76.61 Achilles at Martir Fountain M.D. tendinitis, right leg Office Visit 12/17/2018 2:40p [facility] Internal Aries Morgan MD R55 Syncope and Medicine - Suite R collapse E11.9 Type 2 diabetes mellitus without complications F17.210 Nicotine dependence, cigarettes, uncomplicated E78.5 Hyperlipidemia, unspecified Office Visit 12/05/2018 8:00a [facility] Rolly M76.61 Achilles at Martir Fountain M.D. tendinitis, right leg M76.62 Achilles tendinitis, left leg Office Visit 11/18/2018 2:20p DO Not Use Care Ines J06.9 Acute upper Connections DO Martha [facility] infection, unspecified Assessments Date Code Description Provider 04/17/2019 I10 Essential (primary) hypertension Ines Thomas DO 04/17/2019 M54.5 Low back pain Ines Thomas DO 04/17/2019 F17.210 Nicotine dependence, cigarettes, Ines Thomas DO uncomplicated 04/17/2019 F33.0 Major depressive disorder, recurrent, Ines Thomas DO mild 04/17/2019 G47.33 Obstructive sleep apnea (adult) Ines Thomas DO (pediatric) 04/17/2019 G40.89 Other seizures Ines Thomas DO 04/02/2019 R55 Syncope and collapse Edwin [...] ECHO Schedule 04/01/2019 I10 Essential (primary) hypertension [place] ECHO Schedule 03/28/2019 M54.5 Low back pain [...] M.D. 11/18/2018 J06.9 Acute upper respiratory infection, Inesluz Thomas DO unspecified Plan of Treatment Future Appointment(s):05/19/2019 4:00 pm - Ines Thomas DO at [facility] Internal Medicine - [address] 10:30 am - Nurse Visit cc at [facility]05/05 12:00 pm - Nurse Visit cc at [facility]05/05/2019 1:30 pm - Radha Villanuvea N.P. at [facility]04/23/2019 8:30 am - Edwin Cr M.D. at [facility]04/24/2019 2:30 pm - Jazzmine Goldsmith MD at [facility]04/17/2019 - Ines Thomas, DOI10 Essential (primary) hypertensionNew Medication:Lisinopril 20 mg - 2 by mouth every dayM54.5 Low back painReferral:Odell Aldana MD, MsizfqkbgzsjD73.210 Nicotine dependence, cigarettes, uncomplicatedComments:today is your quit date. 04/17/19.F33.0 Major depressive disorder, recurrent, mildComments:double the paxil--go to 20mg for two weeks. if symptoms are still uncontrolled, you can go to 40mg ffrrzD02.33 Obstructive sleep apnea (adult) (pediatric)Comments: please schedule the appt with Dr. Goldsmith for a sleep vaqfgujegxqhB42.89 Other seizuresNew Xrays:CT Brain Wo, Ordered: 04/17/19 Functional Status Description No Information Available Mental Status Description No Information Available Referrals Refer to Reason for Referral Status Appt Date Jazzmine Goldsmith MD syncope Created [address] [place] [address] [phone] Odell Aldana MD Created [address] [place] [address] [place] [address] [phone] Vania Powell MD syncope Sent 01/10/[address] [place] [address] [phone]
[2019-05-23 05:51] VITALS: BP 127/90
== END 2019-05-23 05:45 | disposition home or self-care (01) ==
LOC: ED 04:09
DX: S60.222A Contusion of left hand, initial encounter (principal); W18.09XA Striking against other object with subsequent fall, initial encounter; Y92.9 Unspecified place or not applicable; R42 Dizziness and giddiness; E11.9 Type 2 diabetes mellitus without complications; I10 Essential (primary) hypertension; J45.909 Unspecified asthma, uncomplicated; Z88.0 Allergy status to penicillin; F17.210 Nicotine dependence, cigarettes, uncomplicated
CPT/HCPCS: 99283

== ENCOUNTER 2019-06-01 17:22 | Emergency (ER) | payer OTHER ==
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
[2019-06-01 18:37] VITALS: BP 127/82
== END 2019-06-01 18:39 | disposition home or self-care (01) ==
LOC: ED 17:22
DX: S70.01XA Contusion of right hip, initial encounter (principal); S80.01XA Contusion of right knee, initial encounter; W01.0XXA Fall on same level from slipping, tripping and stumbling without subsequent striking against object, initial encounter; Y92.512 Supermarket, store or market as the place of occurrence of the external cause; E11.9 Type 2 diabetes mellitus without complications; I10 Essential (primary) hypertension; E78.00 Pure hypercholesterolemia, unspecified; J45.909 Unspecified asthma, uncomplicated; F41.9 Anxiety disorder, unspecified; F32.9 Major depressive disorder, single episode, unspecified; F17.210 Nicotine dependence, cigarettes, uncomplicated; Z79.899 Other long term (current) drug therapy; Z98.51 Tubal ligation status; Z88.0 Allergy status to penicillin
CPT/HCPCS: 99282

== ENCOUNTER 2021-08-07 19:47 | Observation (INO) ==
[2021-08-07] MEDS ORDERED: NS 0.9% 1000 ml BAG 1,000 ML IV ONE (20:18)
[2021-08-07 20:47] LABS: ABS Basophils 0.1 10^3/ul (0-0.2); ABS Eosinophils 0.1 10^3/ul (0-0.6); ABS Lymphocytes 3.1 10^3/ul (1.0-4.8); ABS Monocytes 0.8 10^3/ul (0-0.8); ABS Neutrophils 7.4 10^3/ul (1.5-7.7); Eosinophil % 1.2 %; Hematocrit 52 % (35-47); Hemoglobin 17.9 g/dL (12.0-16.0); Lymphocyte % 27.2 %; Mean Corpuscular HGB Conc 34 g/dL (31-36); Mean Corpuscular Hemoglobin 32 pg (27-31); Mean Corpuscular Volume 94 fL (80-97); Mean Platelet Volume 6.9 fL (7.4-10.4); Nucleated Red Blood Cells % 0.2; Platelet Count 284 10^3/uL (150-450); Red Blood Count 5.55 10^6 /uL (3.70-4.87); Red Cell Distribution Width 15 % (10-15); White Blood Count 11.5 10^3/uL (3.5-10.8)
[2021-08-07 21:08] LABS: Albumin 4.2 g/dL (3.2-5.2); Albumin/Globulin Ratio 1.3 (1-3); C Reactive Protein 12.02 mg/L (<8.01); Globulin 3.3 g/dL (2-4); Potassium 3.5 mmol/L (3.5-5.0); Total Bilirubin 0.3 mg/dL (0.2-1.0); Total Protein 7.5 g/dL (6.4-8.9)
[2021-08-07 21:15] LABS: HCG Pregnancy 1.04 mIU/mL
[2021-08-07] MEDS ORDERED: Iodixanol (CONTRAST) 320 MG/ML 100 ML SDV IV ONE (21:15)
[2021-08-07] MEDS ORDERED: Lactated Ringers 1000 ml BAG 1,000 ML IV ONE (23:19)
[2021-08-07 23:41] LABS: Urine Specific Gravity > 1.060 (1.002-1.030)
[2021-08-07 23:45] LABS: Urine Appearance Clear; Urine Bacteria Absent (Absent); Urine Bilirubin Negative (Negative); Urine Blood 3+ (Negative); Urine Color Yellow; Urine Glucose Negative (Negative); Urine Ketones Negative (Negative); Urine Nitrite Negative (Negative); Urine Protein 1+(30 mg/dL) (Negative); Urine Red Blood Cell 1+(3-5/hpf) (Absent); Urine Squamous Epithelial Cell Present (Absent); Urine Urobilinogen Negative (Negative); Urine White Blood Cell Trace(0-5/hpf) (Absent)
[2021-08-08] MEDS ORDERED: Nicotine GUM 4MG FRUIT FLAVOR PO PRN (01:03)
[2021-08-08] MEDS ORDERED: HYDROcodone/ACETAMIN 5/325 mg TAB PO PRN (01:06)
[2021-08-08 01:26] LABS: Rapid COVID-19 Molecular Undetected (Undetected)
[2021-08-08] MEDS ORDERED: Nicotine PATCH 21 MG/24 HR PATCH TRANSDERM SCH (02:00)
[2021-08-08] MEDS ORDERED: Lactated Ringers 1000 ml BAG 1,000 ML IV SCH ×2 (02:00→07:00)
[2021-08-08] MEDS ORDERED: Enoxaparin 40 MG/0.4 ML SYR SUBCUT SCH (06:00)
[2021-08-08 07:37] LABS: Hematocrit 47 % (35-47); Hemoglobin 16.3 g/dL (12.0-16.0); Mean Corpuscular HGB Conc 34 g/dL (31-36); Mean Corpuscular Hemoglobin 33 pg (27-31); Mean Corpuscular Volume 95 fL (80-97); Mean Platelet Volume 6.9 fL (7.4-10.4); Platelet Count 267 10^3/uL (150-450); Red Blood Count 4.99 10^6 /uL (3.70-4.87); Red Cell Distribution Width 14 % (10-15); White Blood Count 9.2 10^3/uL (3.5-10.8)
[2021-08-08 07:53] LABS: Calcium 9.1 mg/dL (8.6-10.3); Magnesium 1.6 mg/dL (1.9-2.7); Potassium 3.6 mmol/L (3.5-5.0); eGFR CKD-EPI 112.1 (>60)
[2021-08-08] MEDS ORDERED: Dextrose 50% Syringe 50 ml 25 GM/50 ML SYRINGE IV PUSH PRN (08:52)
[2021-08-08 11:07] VITALS: BP 125/76
[2021-08-08 13:12] LABS: HIV 4th Generation Nonreactive (Nonreactive)
[2021-08-12 04:28] LABS: HSV 1 DNA NOT DETECTED; HSV 2 DNA NOT DETECTED; Source WHOLE BLOOD
== END 2021-08-08 16:20 | disposition home or self-care (01) ==
LOC: ED 19:47 → EDHOLD 08-08 00:59 → SUATTDRO 08-08 00:59 → INTOOBSV 08-08 00:59 → MED 08-08 01:52
PROVIDERS: ADMIT Internal Medicine; ATTEND Hospitalist

== ENCOUNTER 2024-07-22 19:02 | Inpatient (IN) ==
[2024-07-22 19:37] LABS: ABS Eosinophils 0.3 10^3/uL (0.0-0.5); ABS Lymphocytes 2.2 10^3/uL (1.0-4.8); ABS Monocytes 0.8 10^3/uL (0.0-0.9); ABS Neutrophils 7.3 10^3/uL (1.5-7.6); Eosinophil % 2.9 %; Hematocrit 42.4 % (35-45); Hemoglobin 14.5 g/dL (11.5-14.3); Lymphocyte % 20.3 %; Mean Corpuscular Hemoglobin 32.2 pg (27-33); Mean Corpuscular Hgb Conc 34.2 g/dL (31-36); Mean Corpuscular Volume 94.1 fL (80-97); Mean Platelet Volume 6.8 fL (7.5-11.2); Platelet Count 272 10^3/uL (150-450); Red Blood Count 4.51 10^6/uL (3.63-4.92); Red Cell Distribution Width 14.6 % (12-17); White Blood Count 10.6 10^3/uL (3.8-11.8)
[2024-07-22] MEDS: methylPREDNISolone SOD SUCC 125 mg 2 ML VIAL IV ONE (19:46)
[2024-07-22] MEDS: Albuterol/Ipratropium NEB.SOL (2.5/0.5 MG) 3 ML NEB.SOLN INH ONE ×2 (19:46→21:37)
[2024-07-22] MEDS: Magnesium Sulfate 2 gm BAG 2 GM/50 ML BAG IVPB ONE (19:54)
[2024-07-22 20:09] LABS: Albumin 4.6 g/dL (3.5-5.7); Albumin/Globulin Ratio 1.8 (1-3); C Reactive Protein 3.09 mg/L (<8.01); Calcium 9.3 mg/dL (8.6-10.3); Creatinine, Serum 0.6 mg/dL (0.51-0.95); Globulin 2.6 g/dL (2-4); Potassium 3.5 mmol/L (3.5-5.0); Total Bilirubin 0.4 mg/dL (0.2-1.0); Total Protein 7.2 g/dL (6.4-8.9); eGFR CKD-EPI 107.3 (>60)
[2024-07-22] MEDS: Albuterol 2.5mg/3 ml (0.083%) NEB.SOLN INH ONE ×2 (20:42→22:14)
[2024-07-22 21:06] LABS: High Sensitivity Troponin 1 Hr 5 pg/mL (<15)
[2024-07-22] MEDS: Enoxaparin 40 MG/0.4 ML SYR SUBCUT SCH (23:03)
[2024-07-23] MEDS: Nicotine PATCH 14 MG/24 HR PATCH TRANSDERM SCH (00:02)
[2024-07-23] MEDS: Albuterol/Ipratropium NEB.SOL (2.5/0.5 MG) 3 ML NEB.SOLN INH SCH (00:08)
[2024-07-23] MEDS ORDERED: DULoxetine DR 30 mg CAP PO SCH (09:00)
[2024-07-23] MEDS ORDERED: DULoxetine DR 60 mg CAP PO SCH (09:00)
[2024-07-23 09:01] LABS: ABS Monocytes 0.3 10^3/uL (0.0-0.9); ABS Neutrophils 7.3 10^3/uL (1.5-7.6); Hematocrit 40.3 % (35-45); Hemoglobin 13.9 g/dL (11.5-14.3); Lymphocyte % 11.1 %; Mean Corpuscular Hemoglobin 32.5 pg (27-33); Mean Corpuscular Hgb Conc 34.4 g/dL (31-36); Mean Corpuscular Volume 94.5 fL (80-97); Mean Platelet Volume 7.2 fL (7.5-11.2); Platelet Count 260 10^3/uL (150-450); Red Blood Count 4.27 10^6/uL (3.63-4.92); Red Cell Distribution Width 14.6 % (12-17); White Blood Count 8.6 10^3/uL (3.8-11.8)
[2024-07-23 09:23] LABS: Calcium 9.1 mg/dL (8.6-10.3); Creatinine, Serum 0.65 mg/dL (0.51-0.95); Magnesium 2.3 mg/dL (1.9-2.7); Potassium 4.2 mmol/L (3.5-5.0); eGFR CKD-EPI 105.2 (>60)
[2024-07-23] MEDS ORDERED: Dextrose 50% Syringe 50 ml 25 GM/50 ML SYRINGE IV PUSH PRN (09:57)
[2024-07-23] MEDS: CMCS: Meloxicam 7.5 mg TAB (NF) PO SCH (10:13)
[2024-07-23] MEDS: Nicotine GUM 2MG FRUIT FLAVOR PO PRN (10:14)
[2024-07-23] MEDS: Nicotine PATCH 21 MG/24 HR PATCH TRANSDERM SCH (15:00)
[2024-07-23 16:07] LABS: PCO2 Arterial 47 mmHg (35-45); PO2 Arterial 82 mmHg (80-100)
[2024-07-23] MEDS: Magnesium Sulfate 2 gm BAG 2 GM/50 ML BAG IVPB ONE (16:31)
[2024-07-23] MEDS: methylPREDNISolone SOD SUCC 40 mg/ml 1 ml VIAL IV SCH (18:32)
[2024-07-24 07:11] LABS: Calcium 9.1 mg/dL (8.6-10.3); Creatinine, Serum 0.61 mg/dL (0.51-0.95); Potassium 4.7 mmol/L (3.5-5.0); eGFR CKD-EPI 106.8 (>60)
[2024-07-24] MEDS: Albuterol/Ipratropium NEB.SOL (2.5/0.5 MG) 3 ML NEB.SOLN INH SCH ×2 (09:01→12:17)
[2024-07-24] MEDS ORDERED: Benzocaine/Menthol LOZ PO PRN (11:14)
[2024-07-24 12:26] LABS: Glucose Confirmatory 496 mg/dL (70-100)
[2024-07-24] MEDS ORDERED: Dextrose 50% Syringe 50 ml 25 GM/50 ML SYRINGE IV PUSH PRN (13:18)
[2024-07-24] MEDS: methylPREDNISolone SOD SUCC 40 mg/ml 1 ml VIAL IV SCH (19:59)
[2024-07-24] MEDS: Insulin GLARGINE 100 un/ml 10 ml VIAL SUBCUT SCH (20:09)
[2024-07-25] MEDS: Mometasone/Formoter 100/5 MDI INH SCH (16:03)
[2024-07-26 08:08] LABS: Calcium 9.1 mg/dL (8.6-10.3); Creatinine, Serum 0.66 mg/dL (0.51-0.95); Potassium 4.1 mmol/L (3.5-5.0); eGFR CKD-EPI 104.8 (>60)
[2024-07-26] MEDS: Albuterol/Ipratropium NEB.SOL (2.5/0.5 MG) 3 ML NEB.SOLN INH PRN (10:32)
[2024-07-26] MEDS: Enoxaparin 40 MG/0.4 ML SYR SUBCUT SCH (20:46)
[2024-07-27 07:00] LABS: Calcium 8.8 mg/dL (8.6-10.3); Creatinine, Serum 0.62 mg/dL (0.51-0.95); Potassium 3.7 mmol/L (3.5-5.0); eGFR CKD-EPI 106.4 (>60)
[2024-07-28 07:34] LABS: Creatinine, Serum 0.68 mg/dL (0.51-0.95); Magnesium 2.1 mg/dL (1.9-2.7); Potassium 3.8 mmol/L (3.5-5.0); eGFR CKD-EPI 104.1 (>60)
[2024-07-28 09:28] VITALS: BP 112/69
== END 2024-07-28 10:30 | disposition home or self-care (01) | DRG 141 ==
LOC: EDHOLD 19:02 → ED 19:02 → SUATTDRO 22:11 → MED 07-23 15:53 → SUATTDRO 07-24 12:08
PROVIDERS: ADMIT Student in an Organized Health Care Education/Training Program; ATTEND Internal Medicine